=== PATIENT | male | born 1945 | race Hispanic/Latino ===

== ENCOUNTER 2017-12-25 07:30 | Inpatient (IN) | payer MEDICARE, BC ==
[2017-12-25 07:37] VITALS: BMI 27.3
[2017-12-25] MEDS ORDERED: Sodium Chloride 0.9% 1,000 ML IV STA (07:46)
[2017-12-25] MEDS ORDERED: Morphine 4 mg/ml ISec IVP STA (07:46)
--- NOTE | 2017-12-25 07:51 | ED PDOC ---
Arrival/HPI - General Chief Complaint: Abdominal Pain Time Seen by Provider: 12/25/17 07:36 Historian: Patient - History of Present Illness Narrative History of Present Illness (Text): 12/25/17 07:48 pt p/w + left groin/abd pain x 2 days, waxing and waning, at most pain worsens when he is ambulating; pain at most is 8/10; pt states + dysuria, ? urinary frequency; pt states no fever/chills/sweats, no cp/sob/palpitations, no bowel changes, no n/v, no numbness/tingling; pt denied fall/trauma/sick contact, no travel; pt is here for further eval; pt's without other complaints pt felt currently pain is similiar to prior hx of kidney stone pain, pain is unlike prior hx of lumbar/thoracic fracture/pain PCP: Dr Rodriguez Urology: Rajeev/Brittanie Time/Duration: < week (2d) Symptom Onset: Sudden Symptom Course: Intermittent Quality: Tightness, Stabbing, Cramping Severity Level: 8, Severe Activities at Onset: Other (worse pain with movement) Context: Walking, Exertion, Home Past Medical History - Provider Review Nursing Documentation Reviewed: Yes - Travel History Have you recently traveled outside [place] w/in the past 3 mons?: No - Past History Past History: No Previous - Infectious Disease Hx of Infectious Diseases: None - Tetanus Immunization Tetanus Immunization: Unknown - Cardiac Hx Hypertension: Yes - Pulmonary Hx Respiratory Disorders: No Hx Asthma: No Hx Bronchitis: No Hx Chronic Obstructive Pulmonary Disease (COPD): No Hx Emphysema: No Hx Pneumonia: No Hx Respiratory Aspiration: No Hx Respiratory Tract Infection: No Hx Sleep Apnea: No Hx Tuberculosis: No - Neurological Hx Neurological Disorder: No Hx Alzheimer's Disease: No HX Cerebrovascular Accident: No Hx Dementia: No Hx Dizziness: No Hx Meningitis: No Hx Migraine: No Hx Parkinson's Disease: No Hx Seizures: No Hx Transient Ischemic Attacks (TIA): No - Renal Hx Kidney Stones: Yes - Endocrine/Metabolic Hx Diabetes Mellitus Type 1: Yes - Hematological/Oncological Hx Blood Disorders: No Hx AIDS: No Hx Anemia: No Hx Cancer: No Hx Chemotherapy: No Hx Cirrhosis: No Hx Hepatitis A: No Hx Hepatitis C: No Hx Metastasis: No Hx Shingles: No Hx Unexplained Bleeding: No - Musculoskeletal/Rheumatological Hx Falls: Yes - Gastrointestinal Hx Gastrointestinal Disorders: Yes (INCONTINENT,ILEOSTOMY,CONSTIPATION, ULCERATIVE COLITIS,APPENDECTOMY,) - Genitourinary/Gynecological Hx Genitourinary Disorders: No (KIDNEY STONES) Hx Reproductive Disorders: No - Psychiatric Hx Substance Use: No - Surgical History Hx Cardiac Catheterization: No Hx Coronary Stent: No Other/Comment: ileostomy - Anesthesia Hx Anesthesia: Yes Hx Anesthesia Reactions: No Hx Malignant Hyperthermia: No - Suicidal Assessment Feels Threatened In Home Enviroment: No Family/Social History - Physician Review Nursing Documentation Reviewed: Yes Family/Social History: No Known Family HX Smoking Status: Never Smoked Hx Alcohol Use: Yes Hx Substance Use: No Hx Substance Use Treatment: No Allergies/Home Meds Allergies/Adverse Reactions: Allergies oxycodone Allergy (Verified 12/25/17 07:39) hallucination Penicillins Allergy (Verified 12/25/17 07:38) hallucination aspirin Allergy (Uncoded 12/25/17 07:38) hallucination Home Medications: Home Meds Medication Instructions Recorded Confirmed Insulin Detemir [Levemir] 30 unit SC HS 11/09/14 12/25/17 Insulin Lispro-LOW [humALOG LOW] 1 unit SC ACBHS 11/09/14 12/25/17 Pantoprazole Sodium [Protonix] 20 mg PO DAILY 11/09/14 12/25/17 Polyethylene Glycol 3350 [Miralax] 17 g PO DAILY PRN 11/09/14 12/25/17 Pregabalin [Lyrica] 100 mg PO BID PRN 11/09/14 12/25/17 Tamsulosin [Flomax] 0.4 mg PO DAILY 11/09/14 12/25/17 Review of Systems - Review of Systems Constitutional: Normal Eyes: Normal ENT: Normal Respiratory: Normal Cardiovascular: Normal Gastrointestinal: Abdominal Pain. absent: Nausea, Vomiting Genitourinary Male: Dysuria, Frequency. absent: Hematuria Musculoskeletal: Normal. absent: Back Pain, Neck Pain Skin: Normal Neurological: Normal Endocrine: Normal Hemo/Lymphatic: Normal Psychiatric: Normal Physical Exam Vital Signs Reviewed: Yes Vital Signs Temp Pulse Resp BP Pulse Ox 12/25/17 11:35 62 18 146/72 97 12/25/17 07:30 98 F 62 18 141/65 96 Temperature: Afebrile Blood Pressure: Normal Pulse: Regular Respiratory Rate: Normal Appearance: Positive for: Well-Appearing, Uncomfortable, Other (NAD, resting in bed, alert/awake, GCS = 15, oriented x 3; cooperative, follows command with ease ) Pain Distress: None Mental Status: Positive for: Alert and Oriented X 3 - Systems Exam Head: Present: Atraumatic, Normocephalic Pupils: Present: PERRL, Other (no nystagmus, no photophobia, sclera anicteric, visual field intact b/l) Extroacular Muscles: Present: EOMI Conjunctiva: Present: Normal Ears: Present: Normal Mouth: Present: Moist Mucous Membranes, Other (fair dentitions, no drooling/ stridor, no exudate/lesions, uvula/tongue are midline) Pharnyx: Present: Normal Nose (External): Present: Atraumatic Nose (Internal): Present: Normal Inspection Neck: Present: Normal Range of Motion, Trachea Midline. No: MIDLINE TENDERNESS Respiratory/Chest: Present: Clear to Auscultation, Good Air Exchange, Other ( CTA b/l, no w/r/r, no tachypenia) Cardiovascular: Present: Regular Rate and Rhythm, Normal S1, S2. No: Murmurs Abdomen: Present: Normal Bowel Sounds, Other (well nourished male, + right colectomy site/bag - + normal stool content/non-bloody; no focal tenderness, no masses/rebound/guarding/rigidity; no peck's sign, no mcburney's point tenderness) Back: Present: Normal Inspection, Other (no midline tenderness, no crepitus, no ecchymosis, no step off). No: CVA Tenderness, Midline Tenderness Upper Extremity: Present: Normal Inspection, Normal ROM, NORMAL PULSES, Neurovascularly Intact, Capillary Refill < 2s Lower Extremity: Present: Normal Inspection, NORMAL PULSES, Normal ROM, Capillary Refill < 2 s, Other (NO SLR; strength 5/5 grossly intact in all limbs , neurovasc intact b/l, + ambulatory) Neurological: Present: GCS=15, CN II-XII Intact, Speech Normal Skin: Present: Warm, Normal Color, Other (cap refill < 1sec, no ulcerations, no petechiae, no rashes) Psychiatric: Present: Alert, Oriented x 3 Medical Decision Making ED Course and Treatment: 12/25/17 07:51 Impression: left groin/abd pain i have consider all the differential diagnosis regarding pt's chief medical complaints/clinical findings, including but are not limited to: left groin/abd pain A/P: left groin/abd pain - labs - iv - ct - ua - observe - supportive care 12/25/17 10:55 pt is doing well currently pt denied pain pt is unable to urinate however 12/25/17 11:[address] kiser/urology, made aware, states if pt's symptoms are improved, pt can be treated as outpt; if pt's with persistent pain, then admit patient; no emergent procedure is recommend as per Dr Kiser; Dr kiser would like a KUB I spoke to Dr Beltran, devops consultant for Dr Rodriguez, is made aware, if pt's is to be admitted, Dr Beltran will admit, otherwise pt can be dispositioned accordingly pt currently remained pain free but is resting pt is awaiting urination 12/25/17 12:55 pt is made aware of his medical results pt continues to have intermittent pain, pt is requesting admission i spoke with Dr Beltran earlier, pt will be admitted pt agrees with admission Re-evaluation Time: 10:55 Reassessment Condition: Improved - Lab Interpretations Lab Results: 12/25/17 08:00 12/25/17 08:00 Lab Results 12/25/17 11:45: Urine Color Yellow, Urine Appearance Clear, Urine pH 5.5, Ur Specific [place] >= 1.030, Urine Protein Trace H, Urine Glucose (UA) 250 H, Urine Ketones Negative, Urine Blood Large H, Urine Nitrate Negative, Urine Bilirubin Negative, Urine Urobilinogen 0.2, Ur Leukocyte Esterase Negative, Urine RBC 20 - 25, Urine WBC 1 - 3, Ur Epithelial Cells None, Uric Acid Crystals Trace, Other Crystals Cystine, Amorphous Sediment Few, Urine Bacteria Mod, Urine Other Fiber 12/25/17 11:31: POC Glucose (mg/dL) 99 12/25/17 08:00: Sodium 142, Potassium 3.7, Chloride 107, Carbon Dioxide 26, Anion Gap 13, BUN 23 H, Creatinine 1.2, Est GFR ( Amer) > 60, Est GFR ( Non-Af Amer) 59, Random Glucose 105, Calcium 9.4, Total Bilirubin 1.6 H, AST 22 , ALT 22, Alkaline Phosphatase 53, Total Protein 7.0, Albumin 3.6, Globulin 3.4 , Albumin/Globulin Ratio 1.0 L, Lipase 108 12/25/17 08:00: WBC 6.5, RBC 4.60, Hgb 14.7, Hct 41.6 L, MCV 90.4, MCH 32.0, MCHC 35.3, RDW 12.6, Plt Count 154, MPV 10.1, Gran % 56.0, Lymph % (Auto) 34.2, [place] % (Auto) 8.0 H, Eos % (Auto) 1.5, Baso % (Auto) 0.3, Gran # 3.66, Lymph # ( Auto) 2.2, [place] # (Auto) 0.5, Eos # (Auto) 0.1, Baso # (Auto) 0.02 I have reviewed the lab results: Yes Interpretation: Abnormal lab values (slightly elevated Tbili; abnl UA) - RAD Interpretation Narrative RAD Interpretations (Text): 12/25/17 10:20 CT abdomen and pelvis: Creator : Jefry Cedeno MD FINDINGS: LOWER THORAX: Unremarkable. LIVER: Unremarkable. No gross lesion or ductal dilatation. GALLBLADDER AND BILE DUCTS: Cholecystectomy. PANCREAS: Unremarkable. No gross lesion or ductal dilatation. SPLEEN: Unremarkable. ADRENALS: Unremarkable. No mass. KIDNEYS AND URETERS: 12 millimeter calculus in the left renal pelvis with pelvic dilatation and peripelvic fat infiltration. No caliectasis. VASCULATURE: Unremarkable. No aortic aneurysm. BOWEL: Status post colectomy with right lower quadrant ileostomy. APPENDIX: Unremarkable. Normal appendix. PERITONEUM: Unremarkable. No free fluid. No free air. LYMPH NODES: Unremarkable. No enlarged lymph nodes. BLADDER: Unremarkable. REPRODUCTIVE: Relative of increased size of symmetric bilobed soft tissue density superior to the prostate gland could represent enlarged seminal vesicles. Recommend correlation with old films. BONES: No acute fracture. OTHER FINDINGS: None. IMPRESSION: 12 millimeter calculus in the left renal pelvis with pelvic dilatation and peripelvic fat infiltration. No caliectasis. Relative increased size of symmetric bilobed soft tissue density superior to the prostate gland could represent enlarged seminal vesicles. Recommend correlation with old films. 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 - Medication Orders Current Medication Orders: Insulin Detemir (Levemir) 30 unit SC HS [facility] Insulin Human Regular (Humulin R Med) 0 units SC ACHS [facility]OLA PRN Reason: Protocol Last Admin: 12/25/17 11:34 Dose: Not Given Non-Admin Reason: BP Parameters Not Met [facility] Blood Glucose Document 12/25/17 11:34 SRE (Rec: 12/25/17 11:34 SRE [id number]) Blood Glucose Finger Stick Blood Glucose (70-120) 99 Pantoprazole Sodium (Protonix Ec Tab) 20 mg PO DAILY [facility]OLA Pregabalin (Lyrica) 100 mg PO BID PRN PRN Reason: Muscle pain Tamsulosin HCl (Flomax) 0.4 mg PO DAILY [facility] Last Admin: 12/25/17 11:32 Dose: 0.4 mg Discontinued Medications Sodium Chloride (Sodium Chloride 0.9%) 1,000 mls @ 1,000 mls/hr IV .Q1H STA Stop: 12/25/17 08:45 Last Admin: 12/25/17 08:07 Dose: 1,000 mls/hr eMAR Start Stop Document 12/25/17 08:07 SRE (Rec: 12/25/17 08:08 SRE [id number]) Intravenous Solution Start Date 12/25/17 Start Time 08:00 End Date 12/25/17 End time 09:00 Total Infusion Time 60 Ketorolac Tromethamine (Toradol) 15 mg IVP STAT STA Stop: 12/25/17 07:47 Last Admin: 12/25/17 08:08 Dose: 15 mg [facility] Pain Assessment Document 12/25/17 08:08 SRE (Rec: 12/25/17 08:09 SRE [id number]) Pain Reassessment Is this a pain reassessment? Yes Sleep Is patient sleeping during reassessment? No Presence of Pain Presence of Pain Yes Pain Scale Used Pain Scale Used Numeric Location Left, Right or Bilateral Left Pain Location Body Site Abdomen Description Description Intermittent IVP Administration Document 12/25/17 08:08 SRE (Rec: 12/25/17 08:09 SRE [id number]) Charges for Administration # of IVP Administrations 1 Re-Assess: [facility] Pain Assessment Document 12/25/17 09:08 SRE (Rec: 12/25/17 11:30 SRE [id number]) Pain Reassessment Is this a pain reassessment? Yes Sleep Is patient sleeping during reassessment? No Presence of Pain Presence of Pain Yes Pain Scale Used Pain Scale Used Numeric Morphine Sulfate (Morphine) 4 mg IVP STAT STA Stop: 12/25/17 07:47 Last Admin: 12/25/17 08:08 Dose: 4 mg [facility] Pain Assessment Document 12/25/17 08:08 SRE (Rec: 12/25/17 08:08 SRE [id number]) Pain Reassessment Is this a pain reassessment? Yes Sleep Is patient sleeping during reassessment? No Presence of Pain Presence of Pain Yes Pain Scale Used Pain Scale Used Numeric Location Left, Right or Bilateral Left Pain Location Body Site Abdomen Description Description Intermittent IVP Administration Document 12/25/17 08:08 SRE (Rec: 12/25/17 08:08 SRE [id number]) Charges for Administration # of IVP Administrations 1 Re-Assess: [facility] Pain Assessment Document 12/25/17 09:08 SRE (Rec: 12/25/17 11:29 SRE [id number]) Pain Reassessment Is this a pain reassessment? Yes Sleep Is patient sleeping during reassessment? No Presence of Pain Presence of Pain Yes Location Left, Right or Bilateral Left Pain Location Body Site Abdomen Description Description Intermittent Disposition/Present on Arrival - Present on Arrival Any Indicators Present on Arrival: No History of DVT/PE: No History of Uncontrolled Diabetes: Yes Urinary Catheter: No History of Decub. Ulcer: No History Surgical Site Infection Following: None - Disposition Have Diagnosis and Disposition been Completed?: Yes Diagnosis: Acute flank pain, Renal colic on left side Disposition: HOSPITALIZED Disposition Time: 12:57 Patient Plan: Admission, Observation Condition: STABLE Referrals: Brenna Rodriguez MD [Primary Care Provider] - Follow up with primary Forms: [employer]iLo (Georgian)
[2017-12-25 08:13] LABS: BASO # 0.02 K/mm3 (0.0-2.0); BASO % 0.3 % (0.0-3.0); EOS # 0.1 (0.0-0.7); EOS % 1.5 % (1.5-5.0); GRAN # 3.66 (1.4-6.5); HEMOGLOBIN 14.7 g/dL (14.0-18.0); LYMPH # 2.2 (1.2-3.4); LYMPH % 34.2 % (22.0-35.0); MEAN CELL VOLUME 90.4 fl (80.0-105.0); MEAN CORPUSCULAR HGB CONC 35.3 g/dl (31.0-37.0); MEAN PLATELET VOLUME 10.1 fl (7.0-11.0); MONO # 0.5 (0.1-0.6); RBC 4.6 10^6/uL (3.5-6.1); RED CELL DISTRIBUTION WIDTH 12.6 % (11.5-14.5); WHITE BLOOD COUNT 6.5 10^3/ul (4.5-11.0)
[2017-12-25 08:23] LABS: ALBUMIN 3.6 g/dL (3.0-4.8); ALT/SGPT 22 U/L (7-56); AST/SGOT 22 U/L (17-59); BLOOD UREA NITROGEN 23 mg/dL (7-21); CALCIUM 9.4 mg/dL (8.4-10.5); GFR AFRICAN-AMERICAN > 60; GFR NON-AFRICAN AMERICAN 59; LIPASE 108 U/L (23-300)
--- NOTE | 2017-12-25 10:21 | CT ---
PROCEDURE: CT Abdomen and Pelvis without intravenous contrast HISTORY: left groin/abd pain x 2d, hx of stones COMPARISON: None. TECHNIQUE: Technique. Contrast Dose: Radiation dose: Total exam DLP = Total exam DLP = mGy-cm. This CT exam was performed using one or more of the following dose reduction techniques: Automated exposure control, adjustment of the mA and/or kV according to patient size, and/or use of iterative reconstruction technique. FINDINGS: LOWER THORAX: Unremarkable. LIVER: Unremarkable. No gross lesion or ductal dilatation. GALLBLADDER AND BILE DUCTS: Cholecystectomy. PANCREAS: Unremarkable. No gross lesion or ductal dilatation. SPLEEN: Unremarkable. ADRENALS: Unremarkable. No mass. KIDNEYS AND URETERS: 12 millimeter calculus in the left renal pelvis with pelvic dilatation and peripelvic fat infiltration. No caliectasis. VASCULATURE: Unremarkable. No aortic aneurysm. BOWEL: Status post colectomy with right lower quadrant ileostomy. APPENDIX: Unremarkable. Normal appendix. PERITONEUM: Unremarkable. No free fluid. No free air. LYMPH NODES: Unremarkable. No enlarged lymph nodes. BLADDER: Unremarkable. REPRODUCTIVE: Relative of increased size of symmetric bilobed soft tissue density superior to the prostate gland could represent enlarged seminal vesicles. Recommend correlation with old films. BONES: No acute fracture. OTHER FINDINGS: None. IMPRESSION: 12 millimeter calculus in the left renal pelvis with pelvic dilatation and peripelvic fat infiltration. No caliectasis. Relative increased size of symmetric bilobed soft tissue density superior to the prostate gland could represent enlarged seminal vesicles. Recommend correlation with old films.
[2017-12-25] MEDS: Insulin Reg-MEDIUM-Coverage SC SCH ×3 (11:34→22:11)
[2017-12-25 12:10] LABS: PH,URINE 5.5 (4.7-8.0); URINE APPEARANCE CLEAR (CLEAR); URINE BILIRUBIN NEGATIVE (NEGATIVE); URINE BLOOD LARGE (NEGATIVE); URINE COLOR YELLOW (YELLOW); URINE GLUCOSE (UA) 250 mg/dL (NEGATIVE); URINE LEUKOCYTE ESTERASE NEGATIVE Leu/uL (NEGATIVE); URINE PROTEIN TRACE mg/dL (<30 mg/dL); URINE UROBILINOGEN 0.2 E.U./dL (<1 E.U./dL)
[2017-12-25 12:19] LABS: URINE RBC 20 - 25 /hpf (0-2)
[2017-12-25 12:20] LABS: URINE AMORPHOUS SEDIMENT FEW; URINE BACTERIA MOD (NEG); URINE OTHER CRYSTALS CYSTINE /hpf; URINE URIC ACID CRYSTALS TRACE /hpf
--- NOTE | 2017-12-25 13:52 | RAD ---
HISTORY: left flank pain COMPARISON: CT of the abdomen 12/25/2017 FINDINGS: BOWEL: Normal. No obstruction. No free air. BONES: Normal. OTHER FINDINGS: None. IMPRESSION: The stone seen on CT in the left renal pelvis is not visible on plain film
[2017-12-25] MEDS ORDERED: Oxycodone/Acetaminophen 5/325 mg Tab PO PRN (20:56)
[2017-12-25] MEDS ORDERED: Ciprofloxacin 400mg/200ml D5W 400 MG/200 ML BAG IVPB SCH (22:00)
[2017-12-25] MEDS ORDERED: Insulin Detemir 100 units/ml Vial (Levemir) SC SCH (22:00)
[2017-12-25] MEDS ORDERED: Influenza Vaccine 60 mcg/0.5 mL SYR (4YR UP) IM ONE (22:23)
[2017-12-25] MEDS ORDERED: Pneumococcal 23-Valent Vaccine IM ONE (22:23)
[2017-12-25] MEDS: Insulin Detemir 100 units/ml Vial (Levemir) SC SCH (22:26)
[2017-12-26] MEDS: Insulin Reg-MEDIUM-Coverage SC SCH ×4 (08:30→21:57)
[2017-12-26] MEDS ORDERED: Iohexol 240 (50 ml) ONE (09:38)
[2017-12-26] MEDS ORDERED: Lactated Ringer's 1,000 ML IV SCH (10:00)
[2017-12-26] MEDS ORDERED: Propofol 10 mg/ml Inj (20 ML) ONE (10:04)
[2017-12-26] MEDS ORDERED: Ciprofloxacin 400mg/200ml D5W 400 MG/200 ML BAG IVPB ONE (10:08)
[2017-12-26] MEDS ORDERED: Ciprofloxacin 400mg/200ml D5W IVPB ONE (10:10)
[2017-12-26] MEDS: Morphine 4 mg/ml ISec IVP PRN ×4 (10:48→21:58)
[2017-12-26] MEDS ORDERED: Morphine 4 mg/ml ISec ONE ×2 (10:49→11:04)
[2017-12-26] MEDS: Pantoprazole 20 mg EC Tab PO SCH (11:00)
[2017-12-26] MEDS ORDERED: HYDROmorphone 0.5 mg/0.5 ml ISec ONE (11:44)
[2017-12-26] MEDS ORDERED: HYDROmorphone 0.5 mg/0.5 ml ISec IVP STA (11:47)
[2017-12-26] MEDS ORDERED: Morphine 4 mg/ml ISec IVP PRN (16:05)
[2017-12-26] MEDS: Insulin Detemir 100 units/ml Vial (Levemir) SC SCH (21:56)
--- NOTE | 2017-12-27 01:42 | HP ---
HISTORY OF PRESENT ILLNESS: This is a 72-year-old male who is coming in to the hospital with complaints of left-sided groin pain and abdominal pain. He says he has been having this pain for the past two days, has been coming and going. He states the pain is worse when he walks. He has described the pain as 7/10. He does have a history of kidney stones. The patient says he has no fevers or chills. No dysuria. No nausea. No vomiting. No weakness in the arms or the legs. No back pain. The patient had seen Urology in the past. REVIEW OF SYMPTOMS: All other review of symptoms are within normal limits except what was mentioned. ALLERGIES: ALLERGIES TO OXYCODONE AND PENICILLIN. HOME MEDICATIONS: Levemir, Humalog, Protonix, MiraLax, Lyrica, Flomax. PAST MEDICAL HISTORY: 1. Nephrolithiasis. 2. Diabetes type 2. 3. Constipation. 4. BPH. 5. Ulcerative colitis. 6. T8 compression fracture and also L1, L2, L3 transverse process fracture. PAST SURGICAL HISTORY: 1. Appendectomy. 2. Cholecystectomy. 3. Ileostomy. SOCIAL HISTORY: The patient does drink socially. He denies smoking. FAMILY HISTORY: No history of kidney stones. PHYSICAL EXAMINATION: VITAL SIGNS: Temperature is 97.8, pulse is 60, blood pressure is 167/80, respirations 22, O2 saturation 98%. Height is 5 feet 8 inches. Weight is 180 pounds, BMI is 27.4. GENERAL: The patient lying in bed, uncomfortable, and in no acute distress. HEENT: Atraumatic and normocephalic. Anicteric sclerae. Moist mucosa. [place] conjunctivae. No oral lesions. NECK: No JVD, anterior and posterior adenopathy, thyromegaly, or bruits. CARDIOVASCULAR: S1 and S2 regular. No murmur, rubs, or gallop. LUNGS: Clear to auscultation bilaterally. No wheezes, rales, or rhonchi. ABDOMEN: Bowel sounds are positive. Soft, nontender and nondistended. No hepatosplenomegaly. No rebound and no guarding EXTREMITIES: No cyanosis, clubbing, or edema. NEUROLOGIC: No facial asymmetry. Tongue is midline. No uvula deviation. Power is 5/5 upper extremity and lower extremity. Sensation intact in upper extremity and lower extremity. PSYCHIATRIC: He is awake, alert and oriented x3. No anxiety or depression. He has normal affect. GENITOURINARY: No CVA tenderness. VASCULAR: 2+ pulses in the carotid pulses and pedal pulses. SKIN: No erythema or nodules SPINE: Shows normal curvature. LABORATORY DATA: White count is 6.5, hemoglobin is 14.7. Chemistry shows a creatinine of 1.2. Urine shows blood that is large. Nitrites are negative. Bilirubin is negative. CT of the abdomen and pelvis done, he has a mm calculus in the left renal pelvis with pelvic dilatation. Abdominal x-ray done, stone seen on the CT. The left renal pelvis is not visible on plain film. ASSESSMENT: 1. 1.2-mm calculus in the left renal pelvis. 2. Diabetes type 2. 3. Ileostomy. PLAN: The patient needs to be admitted to the hospital. He has abdominal pain and a CAT scan that shows a 1.2-mm kidney stone. The patient is going to need a cystoscopy and a stent placement. Dr. Gu had been consulted; I spoke to him yesterday. The patient has been placed on Flomax. He is going to continue with Levemir for diabetes type 2. He is going to be on Protonix. He was given IV fluids. He is on tramadol for pain. The patient is on a heart-healthy diet. The patient going to be discharged home. Follow up with Dr. Gu. He will most likely need to go to [facility] for lithotripsy. Herrera Healy MD
[2017-12-27] MEDS: Morphine 4 mg/ml ISec IVP PRN (01:45)
[2017-12-27] MEDS: Insulin Reg-MEDIUM-Coverage SC SCH ×4 (08:12→22:31)
[2017-12-27] MEDS: Pantoprazole 20 mg EC Tab PO SCH (08:59)
--- NOTE | 2017-12-27 16:27 | PN ---
DATE: 12/27/2017 SUBJECTIVE: The patient has no complaints of any chest pain, no shortness of breath or headache. PHYSICAL EXAMINATION: VITAL SIGNS: Temperature is 99, pulse of 63, blood pressure is 169/95, respirations 18. GENERAL: The patient is lying in bed, flat, comfortable. HEENT: No oral lesion. Anicteric sclerae. Moist mucosa. NECK: No JVD, adenopathy, or thyromegaly. CARDIOVASCULAR: S1 and S2, regular. No murmurs, rubs, or gallops. LUNGS: Clear to auscultation bilaterally. No wheeze, rales, or rhonchi. ABDOMEN: Bowel sounds are positive, soft, nontender and nondistended. EXTREMITIES: No cyanosis, clubbing or edema. LABORATORY DATA: White count of 6.5. ASSESSMENT: 1. 1.2-mm calculus in the left renal pelvis, status post stent. 2. Diabetes type 2. 3. Ileostomy. 4. Vertigo. PLAN: The patient is currently admitted to the hospital. He had a stent placed by Dr. Gu yesterday. The patient is on Flomax for his stone. He is on Levemir for his diabetes type 2. He is on morphine for pain. He is on Ultram for pain as well. The patient states he has vertigo and he is not able to ambulate. This maybe related to his procedure. I will get physical therapy to evaluate the patient. The patient will also need further evaluation by Neurology. I will get Dr. Washburn to evaluate the patient. Herrera Healy MD
[2017-12-27] MEDS ORDERED: Gadodiamide 287 MG/ML VIAL (15ML) IV ONE (17:43)
--- NOTE | 2017-12-27 20:24 | MRI ---
EXAM: MR Head Without and With Intravenous Contrast EXAM DATE/TIME: 12/27/2017 3:26 PM CLINICAL HISTORY: The patient age is 72 years old and is male; Signs and symptoms; Dizziness; Additional info: Vertigo Facility exam id and description: Mri br cs brain w wo contrast. Relevant stent documentation attached. Gfr 59 15cc. Dizziness. Pt kyphotic, done with head coil elevated at 45 degree angle. Additional sequences through pituitary added for clarity. TECHNIQUE: Magnetic resonance images of the head/brain without and with intravenous contrast in multiple planes. CONTRAST: 15 mL of optimark administered intravenously. COMPARISON: No relevant prior studies available. FINDINGS: Brain: There is no restricted diffusion within the brain to suggest acute ischemic change. There are scattered tiny foci of high FLAIR signal intensity within the cerebral white matter. There is no mass effect or restricted diffusion associated with these foci. In a patient this age, this likely represents chronic small vessel ischemic disease. There is mild prominence of the ventricles, with [id number] prominence of the sulci and sulci, compatible with atrophy. No magnetic susceptibility intracerebral hemosiderin is visualized. No cerebral edema. No abnormally enhancing intracranial mass is visualized. Ventricles: There is a cavum septum pellucidum et vergae variant. See above. Bones/joints: No acute abnormality. Soft tissues: Small T1 hyperintense foci are visualized within the left frontal scalp, consistent with lipomas. Sinuses: There is mucosal thickening of the right sphenoid sinus, with mucous retention cysts or polyps. Minimal polypoid mucosal thickening is identified of the left maxillary sinus. Mastoid air cells: No mastoid effusion. Orbits: Bilateral orbital lens implants are identified. Sella: There is deviation of the pituitary stalk to the left. No well-defined pituitary lesion is identified on postcontrast sequences. Other: T1 hypointense small bilateral intraparotid cysts, nodules or lymph nodes are visualized. This is largest on the left side measuring 0.9 x 0.5 cm. IMPRESSION: 1. There is no restricted diffusion within the brain to suggest acute ischemic change. 2. There are scattered tiny foci of high FLAIR signal intensity within the cerebral white matter. In a patient this age, this likely represents chronic small vessel ischemic disease. 3. Mild to moderate atrophy. 4. Paranasal sinus disease is noted above. 5. T1 hypointense small bilateral intraparotid cysts, nodules, or lymph nodes are visualized. 6. Additional findings described above.
[2017-12-27] MEDS: Insulin Detemir 100 units/ml Vial (Levemir) SC SCH (22:33)
--- NOTE | 2017-12-28 02:54 | CON ---
DATE: HISTORY OF PRESENT ILLNESS: This is a 72-year-old male with a past medical history of nephrolithiasis, diabetes, constipation, benign prostatic hypertrophy, ulcerative colitis, and T8 compression fracture, and also L1, L2, L3 transverse process fracture, came to hospital with a complaint of left groin pain and abdominal pain and has been complaining of this pain for the past 2 to 3 weeks and which becomes worse when walks, and pain is 7/10 in intensity and also has a history of kidney stone, and dizziness. Patient has been complaining of dizziness for 3 to 4 days with the room spinning sensation. No nausea, no vomiting. REVIEW OF SYSTEMS: Ten-point review of systems was negative except vertigo. ALLERGIES: TO OXYCODONE AND PENICILLIN. PAST MEDICAL HISTORY: Diabetes, ulcerative colitis and benign prostate hypertrophy, T8 compression fracture, L1, L2, L3 transverse process fracture. PAST SURGICAL HISTORY: Appendectomy, cholecystectomy, and ileostomy. SOCIAL HISTORY: Patient drinks socially. Does not smoke. PHYSICAL EXAMINATION: VITAL SIGNS: Blood pressure 167/80. HEENT: Normocephalic and atraumatic. NECK: Supple. NEUROLOGIC: Alert, awake, and oriented x3. No aphasia. Cranial nerves II through XII are tested. Pupils reactive. EOM intact. Visual rios full. No facial asymmetry. Tongue midline. Motor examination: Moves all the extremities equally. Tone normal. Deep tendon reflexes 1+. Both plantars are downgoing. Sensory appears intact. Cerebellar, gait deferred. IMPRESSION: Vertigo, rule out vertebrobasilar ischemia, benign positional vertigo. Workup in progress. We will do the CAT scan of the head or MRI of the head with and without gadolinium and we will give meclizine. We will follow up. Agus Washburn MD
--- NOTE | 2017-12-28 04:30 | CP.PCM.PN ---
Subjective - Date & Time of Evaluation Date of Evaluation: 12/27/17 Time of Evaluation: 19:00 - Subjective Subjective: pt is c/o cp when he takes deep breath . pt has hx of dm htn ,ulcerative colitis. Objective - Vital Signs/Intake and Output Vital Signs (last 24 hours): Temp Pulse Resp BP Pulse Ox 99.3 F 68 18 125/79 97 12/27/17 22:00 12/27/17 22:00 12/27/17 22:00 12/27/17 22:00 12/27/17 22:00 Intake and Output: 12/27/17 12/28/17 18:59 06:59 Intake Total 660 Output Total 500 Balance 160 - Medications Medications: Current Medications Insulin Detemir (Levemir) 16 unit SC [facility] Last Admin: 12/27/17 22:33 Dose: 16 unit Insulin Human Regular (Humulin R Med) 0 units SC [facility] PRN Reason: Protocol Last Admin: 12/27/17 22:31 Dose: Not Given Morphine Sulfate (Morphine) 4 mg IVP Q4H PRN PRN Reason: Pain, severe (8-10) Last Admin: 12/27/17 01:45 Dose: 4 mg Pantoprazole Sodium (Protonix Ec Tab) 20 mg PO DAILY [facility] Last Admin: 12/27/17 08:59 Dose: 20 mg Pregabalin (Lyrica) 100 mg PO BID PRN PRN Reason: Muscle pain Last Admin: 12/26/17 12:42 Dose: 100 mg Tamsulosin HCl (Flomax) 0.4 mg PO DAILY [facility] Last Admin: 12/27/17 09:57 Dose: 0.4 mg Tramadol HCl (Ultram) 50 mg PO Q4 PRN PRN Reason: Pain, moderate (4-7) Last Admin: 12/27/17 09:03 Dose: 50 mg - Constitutional Appears: No Acute Distress - Head Exam Head Exam: NORMOCEPHALIC - Eye Exam Eye Exam: Normal appearance Pupil Exam: PERRL - ENT Exam ENT Exam: Mucous Membranes Moist - Neck Exam Neck Exam: Normal Inspection - Respiratory Exam Respiratory Exam: NORMAL BREATHING PATTERN - Cardiovascular Exam Cardiovascular Exam: RRR, +S1, +S2 - GI/Abdominal Exam GI & Abdominal Exam: Soft, Normal Bowel Sounds - Rectal Exam Rectal Exam: Deferred - Extremities Exam Extremities Exam: Full ROM - Neurological Exam Neurological Exam: Alert, Awake, Oriented x3 - Psychiatric Exam Psychiatric exam: Normal Affect - Skin Skin Exam: Dry, Warm Assessment and Plan - Assessment and Plan (Free Text) Assessment: chest pain hx of dm . hx of ulcerative colitis . renal calculi. Plan: pt was given s/l nitro and improved . ekg no acute changes . troponine negative.
[2017-12-28] MEDS: Insulin Reg-MEDIUM-Coverage SC SCH ×3 (08:22→17:09)
--- NOTE | 2017-12-28 08:38 | OP ---
PROCEDURE DATE: 12/26/2017 PREOPERATIVE DIAGNOSIS: Renal colic and left renal pelvic calculus. POSTOPERATIVE DIAGNOSIS: Renal colic and left renal pelvic calculus. PROCEDURE: Cystoscopy, left retrograde pyelogram, insertion of left ureteral stent. ATTENDING SURGEON: Romain Gu MD. ANESTHESIA: MAC sedation. SPECIMENS: None. DRAINS: A 6 x 26 left ureteral stent. COMPLICATIONS: None. OPERATIVE FINDINGS: After informed consent was obtained, the patient was taken to operating room and placed on the operating table. Anesthesia was administered. The patient was then placed in the dorsal lithotomy position and prepped and draped in the usual sterile fashion. A 22-Nepali cystoscope was placed in the patient's urethra and advanced proximally under direct vision until the bladder was entered. A full survey inspection of bladder was then performed, which revealed large amount of mittla colored sediment and tiny calculi. There were no sizable bladder stones noted. Both ureteral orifices were visualized and appeared within normal limits. The bladder had grade 1-2 trabeculation noted. Prostate was enlarged with trilobar hypertrophy. At this point, a [place] catheter was introduced through the cystoscope and guided into the left ureteral orifice. When inside the orifice, contrast was then instilled into the system during real-time fluoroscopy. There was noted to be a large filling defect in the left renal pelvis. There did not appear to be hydronephrosis or caliectasis. At this point, a sensor wire was obtained. It was passed through the [place] catheter and advanced up the ureter under fluoroscopic guidance. The wire was able to be passed beyond the calculus and coiled in the upper collecting system. The open-ended ureteral catheter was removed and a 6 x 26 ureteral stent was obtained. The stent was passed over the guidewire through the cystoscope and into the left ureter. The stent was advanced proximally under direct and fluoroscopic guidance. When the stent was in proper position, the guidewire was removed. A coil was seen in the upper collecting system on fluoroscopy. The coil was seen in the bladder on cystoscopy. At this point, procedure was completed, the bladder was drained. The cystoscope was removed. The patient tolerated procedure well and was returned to the supine position and taken to the recovery room awake in a stable condition. Romain Gu MD [facility] # [id number] [place]
--- NOTE | 2017-12-28 08:41 | PN ---
DATE: 12/26/2017 The patient is status post insertion of a left ureteral stent. He is now awake and alert and feeling well. He remains afebrile. I have discussed with the patient the plan regarding his large renal pelvic stone would be to start on urinary alkalinization. I will discuss this with Dr. Healy. My recommendation would be to start Urocit-K 15 mEq p.o. twice daily. I will see him in the office in approximately 1 to 2 weeks. If his urine can the alkalinized, the stone will most likely dissolve and we can repeat a CT scan and then, plan stent removal. Alternatively, we can also plan a shockwave lithotripsy; if stone is persistent, to fragment it and increase the surface area. The patient understands and agrees to outpatient followup. If his pain is controlled, he can be discharged home later today. I would continue him on antibiotics for a few days empirically. Romain Gu MD
--- NOTE | 2017-12-28 08:47 | CON ---
DATE: 12/25/2017 CHIEF COMPLAINT: Left groin and abdominal pain. HISTORY OF PRESENT ILLNESS: This is a 72-year-old male who is seen in [facility]. The patient presented to the emergency room complaining of left groin and abdominal pain for few days. Pain was coming and going. Pain was worse when ambulating. Pain became severe and the patient presented to the emergency room. He has a history of kidney stones as well as chronic back pain with vertebral fractures in the past. The patient received pain medication in the emergency room and is currently feeling much better. He has a history of diabetes as well as ulcerative colitis, and had a colectomy. He has had a ileostomy present for many years. He reports multiple episodes of kidney stones in the past. He denies any fevers or chills. Denies any nausea or vomiting. PAST MEDICAL HISTORY: Significant for colitis status post colectomy with ileostomy many years ago, diabetes, positive hypertension, no coronary artery disease, no COPD, vertebral fracture. MEDICATIONS: Include Flomax, insulin, Levemir, Lyrica, Protonix, and received morphine. ALLERGIES: ALLERGIC TO OXYCODONE, PENICILLIN, ASPIRIN. FAMILY HISTORY: Noncontributory. SOCIAL HISTORY: No smoking or EtOH use. REVIEW OF SYSTEMS: Currently feeling better. Left flank pain as per the history of present illness. Also complaining of dysuria present for many years. Denies urinary frequency or difficulty voiding. Has good urinary stream. GI: Has ulcerative colitis with longstanding ileostomy. Other systems are negative. PHYSICAL EXAMINATION: GENERAL: The patient is awake, alert. He is in no acute distress. VITAL SIGNS: He is afebrile, temperature of 97.6, BP 140/81, respirations 18. NECK: Supple. There is no adenopathy. CHEST: Reveals normal inspiratory effort. CARDIAC: Shows positive S1, S2. There is no peripheral edema. ABDOMEN: The abdomen is soft, nontender, nondistended. There is no hepatosplenomegaly. There is an ileostomy in place which is viable and functioning. There is no CVA tenderness. GENITOURINARY: Phallus is normal. Scrotum is normal. Testes are bilaterally descended, nontender, no masses. Epididymides are normal. EXTREMITIES: Shows no cyanosis or edema. LABORATORY DATA: On laboratory exam, WBC count normal 6.5, creatinine 1.2. GFR 59. Urinalysis showed some cystine crystals and uric acid crystals, rbc's 20-25, wbc's 1-3, nitrites were negative. DIAGNOSTIC DATA: On radiologic exam, the patient had a CT scan of the abdomen and pelvis which showed an 1.2 cm calculus in the left renal pelvis. There is some thickening in the pelvis. There is no caliectasis. There is question of enlarged seminal vesicles. KUB was done and the stone was not visible. IMPRESSION AND PLAN: This is a 72-year-old male with history of an ileostomy with a 12-mm left renal pelvic stone. Stone does not appear obstructive. There is no caliectasis or hydronephrosis. The patient's pain has been controlled. The stone is not visible on KUB, and is likely uric acid. Plan at this point would be to start the patient on IV antibiotics prophylactically, as he does have a history of diabetes. I would keep the patient n.p.o. after midnight tonight and plan on a ureteral stent placement. Given his history of diabetes, I think the patient is at risk if the stone does become obstructed. Plan will be to place a stent and plan on an outpatient shockwave lithotripsy. Thank you for allowing me to participate in the care of this patient. I will follow him with you. I discussed this with the patient. We will plan on cystoscopy with stent placement. Romain Gu MD
--- NOTE | 2017-12-28 09:29 | RAD ---
HISTORY: cp COMPARISON: No prior. FINDINGS: LUNGS: No active pulmonary disease. PLEURA: No significant pleural effusion identified, no pneumothorax apparent. CARDIOVASCULAR: Normal. OSSEOUS STRUCTURES: No significant abnormalities. VISUALIZED UPPER ABDOMEN: Normal. OTHER FINDINGS: None. IMPRESSION: No active disease.
[2017-12-28] MEDS: Pantoprazole 20 mg EC Tab PO SCH (09:53)
--- NOTE | 2017-12-28 10:14 | RAD ---
PROCEDURE: Retrograde pyelogram HISTORY: R/O STONE COMPARISON: TECHNIQUE: Fluoroscopy was provided in the operating room. 46.9 seconds of fluoro time. Eleven images submitted FINDINGS: There is a large stone in the left renal pelvis. The study shows placement of a left ureteral stent IMPRESSION: As above
[2017-12-28] MEDS: Morphine 4 mg/ml ISec IVP PRN (12:36)
[2017-12-28] MEDS ORDERED: Morphine 15 mg Immediate Release Tab PO ONE (13:20)
[2017-12-28 16:09] VITALS: BP 150/89; PULSE 90; RESP 17; TEMP 98; O2SAT 94
--- NOTE | 2017-12-28 16:59 | PN ---
DATE: 12/28/2017 NEUROLOGY FOLLOWUP CHIEF COMPLAINT: Follow up for dizziness. SUBJECTIVE: The patient is no acute distress, had a 1.2 mm calculus in the left renal pelvis, status post stent by Dr. Gu. Patient is on Flomax for his stone. He is no longer having any spinning sensation of the room. His MRI of brain showed no acute intracranial abnormality, just chronic ischemic changes. REVIEW OF SYSTEMS: A 14-point review of systems negative except as per the HPI. ALLERGIES: ALLERGIC TO OXYCODONE AND PENICILLIN. HOME MEDICATIONS: Reviewed by nurse reconciliation sheet. FAMILY HISTORY: Noncontributory. PAST MEDICAL HISTORY: Nephrolithiasis, diabetes type 2, constipation, BPH, ulcerative colitis, T8 compression fracture and L1, L2, L3 transverse process fracture. PAST SURGICAL HISTORY: Appendectomy, cholecystectomy and ileostomy. SOCIAL HISTORY: Drinks socially. No illicit drug use or smoking. LABORATORY DATA: Blood sugar today is 195. PHYSICAL EXAMINATION: VITAL SIGNS: Temperature 98.5, pulse rate of 66, blood pressure 140/84, respiratory rate 18, oxygen saturations 95% by room air. GENERAL: Patient is sitting up in bed, in no acute distress. HEENT: Head is atraumatic, normocephalic. PERRLA. Extraocular muscles intact. NECK: Supple. No JVD, no adenopathy noted. LUNGS: Clear to auscultation. No adventitious sounds. HEART: S1, S2, normal rate and rhythm. No murmurs, rubs or gallops. ABDOMEN: Soft, nontender, nondistended. Bowel sounds present. EXTREMITIES: No clubbing, no cyanosis. Peripheral pulses 2+ felt bilaterally. NEUROLOGIC: Patient is alert and oriented to person, place, month and year. Speech is fluent without any errors. Cranial nerves II through XII intact. Motor: Moves all extremities equally. Toes downgoing bilaterally. Sensory: Decreased light touch and pinprick up to the calves bilaterally. Decreased vibration of the toes. DTRs are 2+ throughout and 1 at both knees and ankles. Coordination: [id number] intact. No dysmetria noted. Gait is deferred for now. ASSESSMENT AND PLAN: This is a 72-year-old man with history of type 2 diabetes mellitus, diabetic peripheral neuropathy, constipation, benign prostatic hypertrophy, ulcerative colitis, T8 compression fracture and L1, L2, L3 transverse process fracture, on Lyrica 100 p.o. b.i.d. for neuropathic pain, came in for left-sided groin pain and abdominal pain, found to have calculus in the left renal pelvis, status post stent by Dr. Gu and we will follow up with him for a lithotripsy with urologist as an outpatient. At this time, we were consulted for dizziness and transient spinning sensation of room with positional vertigo. RECOMMENDATIONS: At this time, recommend: 1. Keep blood sugars between 140 to 180 and have a diabetic diet. 2. Continue Lyrica for neuropathic relief of his diabetic peripheral neuropathy and his chronic T8 compression fracture. 3. Avoid sudden movements and decrease salt intake in diet. 4. If the vertigo reoccurs, may need outpatient vestibular therapy. He is clinically stable. Thank you for this followup. Leonidas Washburn MD
--- NOTE | 2017-12-29 03:02 | DS ---
HISTORY OF PRESENT ILLNESS: This is a 72-year-old male who has come into the hospital, he did fairly well after he had a stent placed in his left kidney in the ureter because of 1.2 mm calculus, the patient did not feel well and was dizzy after his procedure, so he stayed an extra day. He is able to ambulate. He was seen by Physical Therapy. [place] catheter was taken out. He is able to go back to work tomorrow. I did leave a note for him for his work. He is going to follow up with Dr. Gu. He has no complaints of any chest pain, no shortness of breath, no headaches. PHYSICAL EXAMINATION: VITAL SIGNS: Temperature is 98, pulse of 90, blood pressure 150/89, respirations 17, O2 saturation 94%. GENERAL: The patient is lying in bed, flat, comfortable. HEENT: No oral lesion. Anicteric sclerae. Moist mucosa. NECK: No JVD, adenopathy, or thyromegaly. CARDIOVASCULAR: S1 and S2, regular. No murmurs, rubs, or gallops. LUNGS: Clear to auscultation bilaterally. No wheeze, rales, or rhonchi. ABDOMEN: Bowel sounds are positive, soft, nontender and nondistended. EXTREMITIES: No cyanosis, clubbing or edema. ASSESSMENT: 1. A 1.2-mm calculus in the left renal pelvis, status post stent. 2. Diabetes type 2. 3. Ileostomy. 4. Vertigo, improved. PLAN: The patient is on Levemir for his diabetes type 2. He is on Ultram for pain. He is on Flomax. He is going to continue with his Lyrica. The patient is on a heart-healthy diet. He was advised to increase his p.o. fluid intake and decrease salt intake to prevent he has no complaints of any headaches, dizziness. CONDITION: Stable. ACTIVITIES: Increase as tolerated. Herrera Healy MD
== END 2017-12-28 18:46 | disposition home or self-care (01) | DRG 694 ==
LOC: ED 07:30 → ERH 12:53 → 5RSO 15:11 → OBSVTOIN 12-27 11:30
PROVIDERS: ADMIT Internal Medicine Nephrology; ATTEND Internal Medicine Nephrology
PROC: 0T778DZ Dilation of Left Ureter with Intraluminal Device, Via Natural or Artificial Opening Endoscopic (ICD-10-PCS; principal; 2017-12-26 09:30)
PROC: BT1F1ZZ Fluoroscopy of Left Kidney, Ureter and Bladder using Low Osmolar Contrast (ICD-10-PCS; 2017-12-26 09:30)
DX: N20.0 Calculus of kidney (principal); E11.42 Type 2 diabetes mellitus with diabetic polyneuropathy; Z93.2 Ileostomy status; R42 Dizziness and giddiness; G89.29 Other chronic pain; N40.0 Benign prostatic hyperplasia without lower urinary tract symptoms; K59.00 Constipation, unspecified; I10 Essential (primary) hypertension; Z87.442 Personal history of urinary calculi; Z90.49 Acquired absence of other specified parts of digestive tract

== ENCOUNTER 2018-06-08 14:51 | Inpatient (IN) | payer MEDICARE, BC ==
[2018-06-08 17:22] LABS: BASO # 0.01 K/mm3 (0.0-2.0); BASO % 0.1 % (0.0-3.0); EOS # 0.1 (0.0-0.7); EOS % 1.4 % (1.5-5.0); GRAN # 4.05 (1.4-6.5); GRAN % 55.4 % (50.0-68.0); HEMOGLOBIN 14.7 g/dL (14.0-18.0); LYMPH # 2.6 (1.2-3.4); LYMPH % 35.4 % (22.0-35.0); MEAN CELL VOLUME 88.7 fl (80.0-105.0); MEAN CORPUSCULAR HEMOGLOBIN 31.5 pg (25.0-35.0); MEAN CORPUSCULAR HGB CONC 35.5 g/dl (31.0-37.0); MEAN PLATELET VOLUME 9.9 fl (7.0-11.0); MONO # 0.6 (0.1-0.6); MONO % 7.7 % (1.0-6.0); RBC 4.67 10^6/uL (3.5-6.1); RED CELL DISTRIBUTION WIDTH 12.8 % (11.5-14.5); WHITE BLOOD COUNT 7.3 10^3/ul (4.5-11.0)
--- NOTE | 2018-06-08 17:22 | RAD ---
Date of service: 06/08/2018 HISTORY: weakness COMPARISON: Chest radiograph dated 12/28/2017 FINDINGS: LUNGS: No active pulmonary disease. PLEURA: No significant pleural effusion identified, no pneumothorax apparent. CARDIOVASCULAR: Atherosclerotic aortic calcifications. Cardiomediastinal silhouette stably enlarged OSSEOUS STRUCTURES: Unchanged. VISUALIZED UPPER ABDOMEN: Normal. OTHER FINDINGS: None. IMPRESSION: No active disease.
--- NOTE | 2018-06-08 17:41 | CT ---
Date of service: 06/08/2018 PROCEDURE: CT HEAD WITHOUT CONTRAST. HISTORY: dizziness COMPARISON: 11/02/2014 TECHNIQUE: Axial computed tomography images were obtained through the head/brain without intravenous contrast. Radiation dose: Total exam DLP = 1084.11 mGy-cm. This CT exam was performed using one or more of the following dose reduction techniques: Automated exposure control, adjustment of the mA and/or kV according to patient size, and/or use of iterative reconstruction technique. FINDINGS: HEMORRHAGE: No intracranial hemorrhage. BRAIN: No mass effect or edema. No atrophy or chronic microvascular ischemic changes. VENTRICLES: No hydrocephalus. Incidental cavum septum pellucidum. CALVARIUM: No fracture. Incidental 7 mm left frontal scalp lipoma. PARANASAL SINUSES: Chronic sphenoid sinusitis MASTOID AIR CELLS: Unremarkable as visualized. No inflammatory changes. OTHER FINDINGS: None. IMPRESSION: No intracranial mass, hemorrhage or evidence of acute infarct. Chronic sphenoid sinusitis. Small left frontal scalp lipoma incidentally noted.
[2018-06-08 17:42] LABS: ALB/GLOB RATIO 1.2 (1.1-1.8); ALBUMIN 3.9 g/dL (3.0-4.8); ALT/SGPT 23 U/L (7-56); AST/SGOT 21 U/L (17-59); BLOOD UREA NITROGEN 19 mg/dL (7-21); CALCIUM 9.4 mg/dL (8.4-10.5); GFR NON-AFRICAN AMERICAN > 60
[2018-06-08 17:54] LABS: TROPONIN I < 0.01 ng/mL
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
[2018-06-08 20:21] LABS: URINE BILIRUBIN NEGATIVE (NEGATIVE); URINE BLOOD NEGATIVE (NEGATIVE); URINE GLUCOSE (UA) >=1000 mg/dL (NEGATIVE); URINE LEUKOCYTE ESTERASE NEGATIVE Leu/uL (NEGATIVE); URINE PROTEIN NEGATIVE mg/dL (<30 mg/dL); URINE UROBILINOGEN 0.2 E.U./dL (<1 E.U./dL)
[2018-06-08 20:24] LABS: URINE APPEARANCE CLEAR (CLEAR); URINE COLOR YELLOW (YELLOW)
[2018-06-09] MEDS ORDERED: Sodium Chloride 0.9% 1,000 ML IV SCH (08:00)
[2018-06-09] MEDS: Insulin Detemir 100 units/ml Vial (Levemir) SC SCH ×2 (08:54→22:20)
[2018-06-09 08:55] LABS: HEMOGLOBIN 16.6 g/dL (14.0-18.0); MEAN CELL VOLUME 88.8 fl (80.0-105.0); MEAN CORPUSCULAR HEMOGLOBIN 31.4 pg (25.0-35.0); MEAN CORPUSCULAR HGB CONC 35.4 g/dl (31.0-37.0); MEAN PLATELET VOLUME 9.7 fl (7.0-11.0); RBC 5.28 10^6/uL (3.5-6.1); RED CELL DISTRIBUTION WIDTH 12.7 % (11.5-14.5); WHITE BLOOD COUNT 6.3 10^3/ul (4.5-11.0)
[2018-06-09 09:24] LABS: ALB/GLOB RATIO 1.1 (1.1-1.8); ALBUMIN 4.3 g/dL (3.0-4.8); ALT/SGPT 18 U/L (7-56); AST/SGOT 26 U/L (17-59); BLOOD UREA NITROGEN 16 mg/dL (7-21); CALCIUM 9.5 mg/dL (8.4-10.5); GFR NON-AFRICAN AMERICAN > 60
--- NOTE | 2018-06-09 10:37 | CARD ---
APPROVED REPORT Date of service: 06/08/2018 EKG Measurement Heart [id number] <Conclusion> Sinus rhythm RVCD LAD
--- NOTE | 2018-06-09 10:38 | CT ---
Date of service: 06/08/2018 PROCEDURE: CT Abdomen and Pelvis without intravenous contrast HISTORY: low back pain COMPARISON: None. TECHNIQUE: Without contrast.. Contrast dose: Radiation dose: Total exam DLP = 524 mGy-cm. This CT exam was performed using one or more of the following dose reduction techniques: Automated exposure control, adjustment of the mA and/or kV according to patient size, and/or use of iterative reconstruction technique. FINDINGS: LOWER THORAX: Unremarkable. LIVER: Unremarkable. No gross lesion or ductal dilatation. GALLBLADDER AND BILE DUCTS: Gallbladder removed PANCREAS: Unremarkable. No gross lesion or ductal dilatation. SPLEEN: Unremarkable. ADRENALS: Unremarkable. No mass. KIDNEYS AND URETERS: There is an extrarenal pelvis on the left. There is no evidence of hydronephrosis. There is an 8 mm nonobstructing stone in the renal pelvis. This could cause intermittent obstruction. VASCULATURE: Unremarkable. No aortic aneurysm. BOWEL: Right lower quadrant ileostomy. Resection of the colon. Perirectal scarring in unchanged. APPENDIX: Unremarkable. Normal appendix. PERITONEUM: Unremarkable. No free fluid. No free air. LYMPH NODES: Unremarkable. No enlarged lymph nodes. BLADDER: Unremarkable. REPRODUCTIVE: Unremarkable. BONES: No acute fracture. OTHER FINDINGS: None. IMPRESSION: There is an extrarenal pelvis on the left. There is no evidence of hydronephrosis. There is an 8 mm nonobstructing stone in the renal pelvis. This could cause intermittent obstruction.
--- NOTE | 2018-06-09 10:41 | CP.PCM.HP ---
<Ignacio Escoto - Last Filed: 06/09/18 10:36> History of Present Illness - History of Present Illness History of Present Illness: History and Physical for Dr. Healy 72 year old male with past medical history of DM, BPH, Ulcerative colitis s/p colectomy, and nephrolithiasis presents to the hospital worsening back pain over the last 10 days and hyperglycemia. Patient states pain is located in his lower back and there was no inciting even. Pain is nonradiating and sharp in nature. Glucose levels at home were in the 300's and 400's. Abdomen/Pelvis CT shows left 8 mm renal pelvis nonobstructing stone. Of note, patient recently had a ureteral stent placed for nephrolithiasis. PMH: As above Surgical Hx: Appendectomy, Colectomy, ileostomy Family Hx: Noncontributory Social Hx: Denies tobacco or illicit drug use. Occasional alcohol use Allergies: Oxycodone, Penicillin Medications: Reviewed, as per MAR Present on Admission - Present on Admission Any Indicators Present on Admission: No Review of Systems - Review of Systems Review of Systems: 12 point ROS as per HPI Past Patient History - Infectious Disease Hx of Infectious Diseases: None - Tetanus Immunizations Tetanus Immunization: Unknown - Past Social History Smoking Status: Never Smoked - CARDIAC Hx Hypercholesterolemia: Yes Hx Hypertension: Yes - PULMONARY Hx Respiratory Disorders: No Hx Asthma: No Hx Bronchitis: No Hx Chronic Obstructive Pulmonary Disease (COPD): No Hx Emphysema: No Hx Pneumonia: No Hx Respiratory Aspiration: No Hx Respiratory Tract Infection: No Hx Sleep Apnea: No Hx Tuberculosis: No - NEUROLOGICAL Hx Neurological Disorder: Yes Hx Alzheimer's Disease: No HX Cerebrovascular Accident: No Hx Dementia: No Hx Dizziness: Yes Hx Meningitis: No Hx Migraine: No Hx Parkinson's Disease: No Hx Seizures: No Hx Transient Ischemic Attacks (TIA): No - RENAL Hx Kidney Stones: Yes - ENDOCRINE/METABOLIC Hx Diabetes Mellitus Type 2: Yes - HEMATOLOGICAL/ONCOLOGICAL Hx Blood Transfusions: No Hx Blood Transfusion Reaction: No - MUSCULOSKELETAL/RHEUMATOLOGICAL Hx Falls: No - GASTROINTESTINAL Hx Gastrointestinal Disorders: Yes (INCONTINENT,ILEOSTOMY,CONSTIPATION, ULCERATIVE COLITIS,APPENDECTOMY,) Hx Gall Bladder Disease: Yes (CHOLEYCSTECTOMY,) Other/Comment: ULCERATIVE COLITIS,COLECTOMY,APPENDECTOMY - GENITOURINARY/GYNECOLOGICAL Hx Genitourinary Disorders: Yes (KIDNEY STONES) Hx Prostate Problems: Yes (BPH) Other/Comment: CHRONIC DYSURIA X 3 YRS. - PSYCHIATRIC Hx Substance Use: No - SURGICAL HISTORY Hx Appendectomy: Yes - ANESTHESIA Hx Anesthesia Reactions: No Hx Malignant Hyperthermia: No Meds Allergies/Adverse Reactions: Allergies Allergy/AdvReac Type Severity Reaction Status Date / Time oxycodone Allergy hallucinati Verified 12/25/17 18:22 on Penicillins Allergy hallucinati Verified 12/25/17 18:22 on aspirin Allergy hallucinati Uncoded 12/25/17 18:22 on Physical Exam - Constitutional Appears: Non-toxic, No Acute Distress - Head Exam Head Exam: ATRAUMATIC, NORMAL INSPECTION, NORMOCEPHALIC - ENT Exam ENT Exam: Mucous Membranes Moist, Normal Exam - Respiratory Exam Respiratory Exam: Clear to Auscultation Bilateral, NORMAL BREATHING PATTERN - Cardiovascular Exam Cardiovascular Exam: RRR, +S1, +S2 - GI/Abdominal Exam GI & Abdominal Exam: Normal Bowel Sounds, Soft. absent: Tenderness - Extremities Exam Extremities exam: Positive for: normal inspection. Negative for: pedal edema, tenderness - Back Exam Back exam: absent: CVA tenderness (L), CVA tenderness (R), paraspinal tenderness , vertebral tenderness - Neurological Exam Neurological exam: Alert, CN II-XII Intact, Oriented x3 - Psychiatric Exam Psychiatric exam: Normal Affect, Normal Mood - Skin Skin Exam: Intact, Normal Color, Warm Results - Vital Signs Recent Vital Signs: Last Vital Signs Temp 97.4 F L 06/09/18 06:00 Pulse 63 06/09/18 06:00 Resp 20 06/09/18 06:00 BP 160/85 H 06/09/18 06:00 Pulse Ox 97 06/09/18 06:00 - Labs Result Diagrams: 06/09/18 08:30 06/09/18 08:30 Labs: Laboratory Results - last 24 hr 06/08/18 06/09/18 06/09/18 22:05 08:30 08:30 WBC 6.3 RBC 5.28 Hgb 16.6 Hct 46.9 MCV 88.8 MCH 31.4 MCHC 35.4 RDW 12.7 Plt Count 139 MPV 9.7 Sodium 140 Potassium 4.4 Chloride 102 Carbon Dioxide 27 Anion Gap 15 BUN 16 Creatinine 0.9 Est GFR ( Amer) > 60 Est GFR (Non-Af Amer) > 60 POC Glucose (mg/dL) 138 H Random Glucose 195 H Calcium 9.5 Total Bilirubin 2.9 H AST 26 ALT 18 Alkaline Phosphatase 63 Total Protein 8.2 Albumin 4.3 Globulin 3.9 Albumin/Globulin Ratio 1.1 Assessment & Plan - Assessment and Plan (Free Text) Plan: 1. 8 mm Left renal pelvis stone 2. Diabetes Mellitus type 2 3. Ileostomy 4. Hypertension 5. Hyperlipidemia Patient will be started on aggressive IVF and pain control with Toradol. We will also add Flomax. Patient will be seen by urology and await recommendations. We will continue current medical regimen and monitor patient closely. Jevon, PGY-3 <Herrera Healy S - Last Filed: 06/09/18 20:00> Results - Vital Signs Recent Vital Signs: Last Vital Signs Temp 98.3 F 06/09/18 18:00 Pulse 75 06/09/18 18:00 Resp 18 06/09/18 18:00 BP 111/71 06/09/18 18:00 Pulse Ox 98 06/09/18 18:00 - Labs Result Diagrams: 06/09/18 08:30 06/09/18 08:30 Labs: Laboratory Results - last 24 hr 06/08/18 06/09/18 06/09/18 22:05 08:30 08:30 WBC 6.3 RBC 5.28 Hgb 16.6 Hct 46.9 MCV 88.8 MCH 31.4 MCHC 35.4 RDW 12.7 Plt Count 139 MPV 9.7 Sodium 140 Potassium 4.4 Chloride 102 Carbon Dioxide 27 Anion Gap 15 BUN 16 Creatinine 0.9 Est GFR ( Amer) > 60 Est GFR (Non-Af Amer) > 60 POC Glucose (mg/dL) 138 H Random Glucose 195 H Calcium 9.5 Total Bilirubin 2.9 H AST 26 ALT 18 Alkaline Phosphatase 63 Total Protein 8.2 Albumin 4.3 Globulin 3.9 Albumin/Globulin Ratio 1.1 06/09/18 17:57 WBC RBC Hgb Hct MCV MCH MCHC RDW Plt Count MPV Sodium Potassium Chloride Carbon Dioxide Anion Gap BUN Creatinine Est GFR ( Amer) Est GFR (Non-Af Amer) POC Glucose (mg/dL) 143 H Random Glucose Calcium Total Bilirubin AST ALT Alkaline Phosphatase Total Protein Albumin Globulin Albumin/Globulin Ratio Assessment & Plan - Assessment and Plan (Free Text) Plan: Pt seen and examined. I have reviewed the note of the certified medical coder and agree with it. I have discussed the assessment and plan with the resident. I have reviewed the patient's labs and medications. Pt with L kidney stone. He may need stent to be placed. Will wait for urology evaluation Pain is controlled on meds. Pt will be placed on IVF. On Flomax. He has a hx of stones. Will D/C tele.
--- NOTE | 2018-06-09 16:41 | CP.PCM.CON ---
<Zohreh Manning - Last Filed: 06/09/18 16:38> History of Present Illness - History of Present Illness History of Present Illness: Seen and examined at bedside, chart reviewed. Request for consult is for pain around ileostomy site. HPI: This is a 72 y.o male with a PMH of Ulcerative Colitis s/p colectomy about 50 years ao, DM,BPH, renal stones came to the hospital with c/o of worsening back pain. This has been going on for about 10 day and having problems with blood sugar. He c/o pain to the right side of his ileostomy but states that he may bet discomfort once in ahile. But recently since he has renal stone he believes this is bringing on the pain. No N/V , fever or chills, BM are brown semi loose, no blood or c/o of frequent change of appliance. He did have a ct scan of abdomen and pelvis on admission and this revealed an 8 mm stone nonobstructing stone in the renal pelvis. He does c/o dysuria upon initiation or urination but no hematuria. Patient states that he had a previous ureteral stent. No c/o dyspesia, wt. loss or loss of appetite. PMH: BPH,DM,Ulcerative colitis, nephrolithiasis PSH: Appendectomy, Colectomy, ileostomy Family Hx: Noncontributory Social Hx: Denies tobacco or illicit drug use, social alcohol use Allergies: Oxycodone, Penicillin Medications: Reviewed, as per MAR ROS: systems reviewed with positive findings, see HPI Past Patient History - Infectious Disease Hx of Infectious Diseases: None - Tetanus Immunizations Tetanus Immunization: Unknown - Past Social History Smoking Status: Never Smoked - CARDIAC Hx Hypercholesterolemia: Yes Hx Hypertension: Yes - PULMONARY Hx Respiratory Disorders: No Hx Asthma: No Hx Bronchitis: No Hx Chronic Obstructive Pulmonary Disease (COPD): No Hx Emphysema: No Hx Pneumonia: No Hx Respiratory Aspiration: No Hx Respiratory Tract Infection: No Hx Sleep Apnea: No Hx Tuberculosis: No - NEUROLOGICAL Hx Neurological Disorder: Yes Hx Alzheimer's Disease: No HX Cerebrovascular Accident: No Hx Dementia: No Hx Dizziness: Yes Hx Meningitis: No Hx Migraine: No Hx Parkinson's Disease: No Hx Seizures: No Hx Transient Ischemic Attacks (TIA): No - RENAL Hx Kidney Stones: Yes - ENDOCRINE/METABOLIC Hx Diabetes Mellitus Type 2: Yes - HEMATOLOGICAL/ONCOLOGICAL Hx Blood Transfusions: No Hx Blood Transfusion Reaction: No - MUSCULOSKELETAL/RHEUMATOLOGICAL Hx Falls: No - GASTROINTESTINAL Hx Gastrointestinal Disorders: Yes (INCONTINENT,ILEOSTOMY,CONSTIPATION, ULCERATIVE COLITIS,APPENDECTOMY,) Hx Gall Bladder Disease: Yes (CHOLEYCSTECTOMY,) Other/Comment: ULCERATIVE COLITIS,COLECTOMY,APPENDECTOMY - GENITOURINARY/GYNECOLOGICAL Hx Genitourinary Disorders: Yes (KIDNEY STONES) Hx Prostate Problems: Yes (BPH) Other/Comment: CHRONIC DYSURIA X 3 YRS. - PSYCHIATRIC Hx Substance Use: No - SURGICAL HISTORY Hx Appendectomy: Yes - ANESTHESIA Hx Anesthesia Reactions: No Hx Malignant Hyperthermia: No Meds Allergies/Adverse Reactions: Allergies Allergy/AdvReac Type Severity Reaction Status Date / Time oxycodone Allergy hallucinati Verified 12/25/17 18:22 on Penicillins Allergy hallucinati Verified 12/25/17 18:22 on aspirin Allergy hallucinati Uncoded 12/25/17 18:22 on - Medications Medications: Current Medications Amlodipine Besylate (Norvasc) 5 mg PO DAILY [facility] Last Admin: 06/09/18 10:39 Dose: 5 mg Atorvastatin Calcium (Lipitor) 10 mg PO DIN [facility] Last Admin: 06/08/18 21:50 Dose: 10 mg Sodium Chloride (Sodium Chloride 0.9%) 1,000 mls @ 100 mls/hr IV .Q10H [facility] Last Admin: 06/09/18 08:43 Dose: 100 mls/hr Insulin Detemir (Levemir) 16 unit SC HS [facility] Last Admin: 06/09/18 08:54 Dose: Not Given Ketorolac Tromethamine (Toradol) 15 mg IVP Q6H PRN PRN Reason: Pain, moderate (4-7) Ramipril (Altace) 10 mg PO DAILY [facility] Last Admin: 06/09/18 10:39 Dose: 10 mg Tamsulosin HCl (Flomax) 0.4 mg PO DAILY [facility] Last Admin: 06/09/18 10:40 Dose: 0.4 mg Physical Exam - Constitutional Appears: No Acute Distress - Head Exam Head Exam: NORMOCEPHALIC - Eye Exam Eye Exam: Normal appearance. absent: Scleral icterus - ENT Exam ENT Exam: Mucous Membranes Moist - Neck Exam Neck exam: Positive for: Normal Inspection - Respiratory Exam Respiratory Exam: NORMAL BREATHING PATTERN. absent: Respiratory Distress - Cardiovascular Exam Cardiovascular Exam: +S1, +S2 - GI/Abdominal Exam GI & Abdominal Exam: Normal Bowel Sounds, Soft, Tenderness. absent: Guarding, Hernia, Organomegaly, Rebound Additional comments: (+) ileostomy, pink stoma, stool in bag, brown and semi loose, no blood/ minimal tenderness on left ileotomy site, no palpable hernia, patient denies noticing any potrusion. - Extremities Exam Extremities exam: Positive for: pedal pulses present. Negative for: calf tenderness, pedal edema - Neurological Exam Neurological exam: Alert, Oriented x3 - Skin Skin Exam: Dry, Warm Results - Vital Signs Recent Vital Signs: Last Vital Signs Temp 97.9 F 06/09/18 12:00 Pulse 66 06/09/18 12:00 Resp 18 06/09/18 12:00 BP 147/88 06/09/18 12:00 Pulse Ox 97 06/09/18 06:00 - Labs Result Diagrams: 06/09/18 08:30 06/09/18 08:30 Labs: Laboratory Results - last 24 hr 06/08/18 06/09/18 06/09/18 22:05 08:30 08:30 WBC 6.3 RBC 5.28 Hgb 16.6 Hct 46.9 MCV 88.8 MCH 31.4 MCHC 35.4 RDW 12.7 Plt Count 139 MPV 9.7 Sodium 140 Potassium 4.4 Chloride 102 Carbon Dioxide 27 Anion Gap 15 BUN 16 Creatinine 0.9 Est GFR ( Amer) > 60 Est GFR (Non-Af Amer) > 60 POC Glucose (mg/dL) 138 H Random Glucose 195 H Calcium 9.5 Total Bilirubin 2.9 H AST 26 ALT 18 Alkaline Phosphatase 63 Total Protein 8.2 Albumin 4.3 Globulin 3.9 Albumin/Globulin Ratio 1.1 Assessment & Plan - Assessment and Plan (Free Text) Assessment: ASSESSMENT: 8 mm Left renal pelvis stone Ileostomy secodnary to colectomy for Ulcerative Colitis, c/o pain near site, no palpable hernia Diabetes Mellitus type 2 Hypertension PLAN: On IVF diet as tolerated pain mgt as per Urology if continued pain after urological intervention consider surgical evaluation Thank you for this consult and for allowing us to participate in your patient care, further recommendation based upon clinical course Seen and discussed w/ Dr. Phelps. <Damaris Phelps V - Last Filed: 06/12/18 00:08> Results - Vital Signs Recent Vital Signs: Last Vital Signs Temp 97.8 F 06/11/18 06:00 Pulse 60 06/11/18 06:00 Resp 18 06/11/18 06:00 BP 118/73 06/11/18 06:00 Pulse Ox 97 06/11/18 06:00 - Labs Result Diagrams: 06/11/18 07:30 06/11/18 07:30 Labs: Laboratory Results - last 24 hr 06/10/18 06/11/18 06/11/18 23:09 06:37 07:30 WBC 5.7 D RBC 4.64 Hgb 14.6 Hct 41.1 L MCV 88.6 MCH 31.5 MCHC 35.5 RDW 12.5 Plt Count 134 MPV 9.6 Gran % 54.2 Lymph % (Auto) 33.8 King % (Auto) 9.2 H Eos % (Auto) 2.6 Baso % (Auto) 0.2 Gran # 3.08 Lymph # (Auto) 1.9 King # (Auto) 0.5 Eos # (Auto) 0.2 Baso # (Auto) 0.01 Sodium Potassium Chloride Carbon Dioxide Anion Gap BUN Creatinine Est GFR ( Amer) Est GFR (Non-Af Amer) POC Glucose (mg/dL) 206 H 129 H Random Glucose Calcium Total Bilirubin AST ALT Alkaline Phosphatase Total Protein Albumin Globulin Albumin/Globulin Ratio 06/11/18 06/11/18 07:30 11:21 WBC RBC Hgb Hct MCV MCH MCHC RDW Plt Count MPV Gran % Lymph % (Auto) King % (Auto) Eos % (Auto) Baso % (Auto) Gran # Lymph # (Auto) King # (Auto) Eos # (Auto) Baso # (Auto) Sodium 136 Potassium 4.0 Chloride 106 Carbon Dioxide 20 L Anion Gap 14 BUN 23 H Creatinine 1.0 Est GFR ( Amer) > 60 Est GFR (Non-Af Amer) > 60 POC Glucose (mg/dL) 179 H Random Glucose 129 H Calcium 8.2 L Total Bilirubin 1.8 H AST 23 ALT 22 Alkaline Phosphatase 46 Total Protein 6.5 Albumin 3.2 Globulin 3.3 Albumin/Globulin Ratio 1.0 L Attending/Attestation - Attestation I have personally seen and examined this patient.: Yes I have fully participated in the care of the patient.: Yes I have reviewed all pertinent clinical information: Yes
[2018-06-10 07:04] LABS: HEMOGLOBIN 15.8 g/dL (14.0-18.0); MEAN CELL VOLUME 88.8 fl (80.0-105.0); MEAN CORPUSCULAR HEMOGLOBIN 31.7 pg (25.0-35.0); MEAN CORPUSCULAR HGB CONC 35.7 g/dl (31.0-37.0); MEAN PLATELET VOLUME 10.4 fl (7.0-11.0); RBC 4.98 10^6/uL (3.5-6.1); RED CELL DISTRIBUTION WIDTH 12.7 % (11.5-14.5); WHITE BLOOD COUNT 7.4 10^3/ul (4.5-11.0)
[2018-06-10 07:49] LABS: ALB/GLOB RATIO 1.1 (1.1-1.8); ALBUMIN 3.6 g/dL (3.0-4.8); ALT/SGPT 21 U/L (7-56); AST/SGOT 23 U/L (17-59); BLOOD UREA NITROGEN 22 mg/dL (7-21); CALCIUM 8.6 mg/dL (8.4-10.5); GFR NON-AFRICAN AMERICAN > 60
[2018-06-10] MEDS ORDERED: Propofol 10 mg/ml Inj (20 ML) ONE (09:10)
--- NOTE | 2018-06-10 09:11 | CP.PCM.PN ---
<Ignacio Escoto - Last Filed: 06/10/18 09:07> Subjective - Date & Time of Evaluation Date of Evaluation: 06/10/18 Time of Evaluation: 09:07 - Subjective Subjective: Patient seen and examined at bedside. Patient with complaints of mild back pain. Patient with no complaints of ileostomy pain this morning. Denies chest pain, shortness of breath, nausea, vomiting, diarrhea, fever, chills. Objective - Vital Signs/Intake and Output Vital Signs (last 24 hours): Temp Pulse Resp BP Pulse Ox 98.1 F 72 16 134/80 95 06/10/18 06:00 06/10/18 08:40 06/10/18 06:00 06/10/18 08:40 06/10/18 08:40 Intake and Output: 06/10/18 06/10/18 06:59 18:59 Intake Total 1200 Balance 1200 - Medications Medications: Current Medications Amlodipine Besylate (Norvasc) 5 mg PO DAILY [facility] Last Admin: 06/09/18 10:39 Dose: 5 mg Atorvastatin Calcium (Lipitor) 10 mg PO DIN [facility] Last Admin: 06/09/18 17:21 Dose: 10 mg Sodium Chloride (Sodium Chloride 0.9%) 1,000 mls @ 100 mls/hr IV .Q10H [facility] Last Admin: 06/09/18 08:43 Dose: 100 mls/hr Insulin Detemir (Levemir) 16 unit SC HS [facility] Last Admin: 06/09/18 22:20 Dose: Not Given Ketorolac Tromethamine (Toradol) 15 mg IVP Q6H PRN PRN Reason: Pain, moderate (4-7) Ramipril (Altace) 10 mg PO DAILY [facility] Last Admin: 06/09/18 10:39 Dose: 10 mg Tamsulosin HCl (Flomax) 0.4 mg PO DAILY [facility] Last Admin: 06/09/18 10:40 Dose: 0.4 mg - Labs Labs: 06/10/18 06:00 06/10/18 06:00 - Constitutional Appears: Non-toxic, No Acute Distress - Head Exam Head Exam: ATRAUMATIC, NORMAL INSPECTION, NORMOCEPHALIC - ENT Exam ENT Exam: Mucous Membranes Moist - Respiratory Exam Respiratory Exam: Clear to Ausculation Bilateral, NORMAL BREATHING PATTERN - Cardiovascular Exam Cardiovascular Exam: RRR, +S1, +S2 - GI/Abdominal Exam GI & Abdominal Exam: Soft, Normal Bowel Sounds. absent: Tenderness Additional comments: Ileostomy site nonerythematous. No leakage. No edema. - Neurological Exam Neurological Exam: Alert, Awake, CN II-XII Intact, Oriented x3 - Psychiatric Exam Psychiatric exam: Normal Affect, Normal Mood - Skin Skin Exam: Intact, Normal Color, Warm Assessment and Plan - Assessment and Plan (Free Text) Plan: 1. 8 mm Left renal pelvis stone 2. Diabetes Mellitus type 2 3. Ileostomy 4. Hypertension 5. Hyperlipidemia Patient is scheduled for stent placement by urology this morning. We will continue IVF and pain control. We will continue current medical regimen and monitor patient closely. He will continue on insulin for his DM2. Will await further urology recommendations. Jevon, PGY-3 <Daquan Lui - Last Filed: 06/10/18 12:09> Objective - Vital Signs/Intake and Output Vital Signs (last 24 hours): Temp Pulse Resp BP Pulse Ox 98 F 73 18 147/86 99 06/10/18 11:27 06/10/18 11:27 06/10/18 11:27 06/10/18 11:39 06/10/18 10:52 Intake and Output: 06/10/18 06/10/18 06:59 18:59 Intake Total 1200 75 Balance 1200 75 - Medications Medications: Current Medications Amlodipine Besylate (Norvasc) 5 mg PO DAILY [facility] Last Admin: 06/10/18 11:39 Dose: 5 mg Atorvastatin Calcium (Lipitor) 10 mg PO DIN [facility] Last Admin: 06/09/18 17:21 Dose: 10 mg Sodium Chloride (Sodium Chloride 0.9%) 1,000 mls @ 100 mls/hr IV .Q10H [facility] Last Admin: 06/09/18 08:43 Dose: 100 mls/hr Insulin Detemir (Levemir) 16 unit SC [facility] Last Admin: 06/09/18 22:20 Dose: Not Given Ketorolac Tromethamine (Toradol) 15 mg IVP Q6H PRN PRN Reason: Pain, moderate (4-7) Ramipril (Altace) 10 mg PO DAILY [facility] Last Admin: 06/10/18 11:39 Dose: 10 mg Tamsulosin HCl (Flomax) 0.4 mg PO DAILY [facility] Last Admin: 06/10/18 11:39 Dose: 0.4 mg - Labs Labs: 06/10/18 06:00 06/10/18 06:00 Assessment and Plan - Assessment and Plan (Free Text) Assessment: pt c/o mid lower back pain more on ambulating will order CT OF LS spine
[2018-06-10] MEDS ORDERED: cefTRIAXone (Rocephin) 1 gm Inj ONE (09:12)
[2018-06-10] MEDS ORDERED: Iohexol 240 (50 ml) ONE (09:12)
[2018-06-10] MEDS ORDERED: Gentamicin 80 mg/2mL Inj. ONE (09:25)
[2018-06-10] MEDS ORDERED: Gentamicin 80 mg/2mL Inj. IVPB ONE (09:32)
[2018-06-10] MEDS ORDERED: Iohexol 240 (50 ml) IVP ONE (09:33)
[2018-06-10] MEDS ORDERED: Lidocaine 2% Jelly (Uro-Jet) ONE (09:40)
--- NOTE | 2018-06-10 10:56 | RAD ---
Date of service: 06/10/2018 PROCEDURE: Retrograde pyelogram HISTORY: LT retrograde pyelogram, LT nephroureteral stent placement COMPARISON: TECHNIQUE: 30.1 seconds of fluoro time. Cumulative dose 7.76 mGy. Fourteen images were submitted FINDINGS: There is a stone in the left renal pelvis. There is placement of a left ureteral stent IMPRESSION: As above
--- NOTE | 2018-06-10 13:57 | CP.PCM.PN ---
<Yordy Jane - Last Filed: 06/11/18 07:29> Subjective - Date & Time of Evaluation Date of Evaluation: 06/10/18 Time of Evaluation: 13:57 - Subjective Subjective: GI Progress Note for Dr. Phelps's Service- Artemio, PGY2 Patient seen and assessed at bedside. No acute events overnight. Patient had ureteral stent placed by Urology this AM. He still endorses back pain but reports no complications or complaints regarding ostomy apparatus or stoma. Patient denies any further complaints at this time including fevers, chills, chest pain, SOB, abdominal pain, N/V/C, hematochezia, melena, or any skin changes. Objective - Vital Signs/Intake and Output Vital Signs (last 24 hours): Temp Pulse Resp BP Pulse Ox 98 F 73 18 147/86 99 06/10/18 11:27 06/10/18 11:27 06/10/18 11:27 06/10/18 11:39 06/10/18 10:52 Intake and Output: 06/10/18 06/10/18 06:59 18:59 Intake Total 1200 75 Balance 1200 75 - Medications Medications: Current Medications Amlodipine Besylate (Norvasc) 5 mg PO DAILY [facility] Last Admin: 06/10/18 11:39 Dose: 5 mg Atorvastatin Calcium (Lipitor) 10 mg PO DIN [facility] Last Admin: 06/09/18 17:21 Dose: 10 mg Sodium Chloride (Sodium Chloride 0.9%) 1,000 mls @ 100 mls/hr IV .Q10H [facility] Last Admin: 06/09/18 08:43 Dose: 100 mls/hr Insulin Detemir (Levemir) 16 unit SC HS [facility] Last Admin: 06/09/18 22:20 Dose: Not Given Ketorolac Tromethamine (Toradol) 15 mg IVP Q6H PRN PRN Reason: Pain, moderate (4-7) Last Admin: 06/10/18 13:42 Dose: 15 mg Ramipril (Altace) 10 mg PO DAILY [facility] Last Admin: 06/10/18 11:39 Dose: 10 mg Tamsulosin HCl (Flomax) 0.4 mg PO DAILY [facility] Last Admin: 06/10/18 11:39 Dose: 0.4 mg - Labs Labs: 06/10/18 06:00 06/10/18 06:00 - Constitutional Appears: Non-toxic, No Acute Distress - Head Exam Head Exam: ATRAUMATIC, NORMOCEPHALIC - Eye Exam Eye Exam: EOMI, Normal appearance - ENT Exam ENT Exam: Mucous Membranes Moist, Normal Exam - Neck Exam Neck Exam: Full ROM, Normal Inspection. absent: Tenderness - Respiratory Exam Respiratory Exam: Clear to Ausculation Bilateral, NORMAL BREATHING PATTERN. absent: Accessory Muscle Use, Chest Wall Tenderness, Decreased Breath Sounds, Prolonged Expiratory Phase, Rales, Rhonchi, Wheezes, Respiratory Distress, Stridor - Cardiovascular Exam Cardiovascular Exam: REGULAR RHYTHM, RRR, +S1, +S2. absent: Bradycardia, Tachycardia, Clicks, Diastolic murmur, Gallop, Irregular Rhythm, JVD, Rubs, +S4 , Murmur - GI/Abdominal Exam GI & Abdominal Exam: Soft, Normal Bowel Sounds. absent: Distended, Firm, Guarding, Rigid, Tenderness, Rebound Additional comments: Ostomy bag in place; Surrounding skin without signs of clinical infection; Ostomy draining brown fluid without gross blood or melena - Extremities Exam Extremities Exam: absent: Calf Tenderness, Joint Swelling, Pedal Edema, Tenderness - Neurological Exam Neurological Exam: Alert, Awake, Oriented x3 - Psychiatric Exam Psychiatric exam: Normal Affect, Normal Mood - Skin Skin Exam: Dry, Intact, Normal Color, Warm Assessment and Plan - Assessment and Plan (Free Text) Assessment: 72 year old male with a past medical history significant for DM, BPH, Ulcerative Colitis s/p colectomy with ostomy, and nephrolithiasis presents to the hospital worsening back pain over the last 10 days and hyperglycemia. GI was consulted for history of ostomy s/p colectomy. Plan: -Continue IVF -ADAT -Continue Ostomy care as scheduled -Urology consultation appreciated Patient seen and case discussed with attending, Dr. Phelps. <Damaris Phelps V - Last Filed: 06/12/18 00:07> Objective - Vital Signs/Intake and Output Vital Signs (last 24 hours): Temp Pulse Resp BP Pulse Ox 97.8 F 60 18 118/73 97 06/11/18 06:00 06/11/18 06:00 06/11/18 06:00 06/11/18 06:00 06/11/18 06:00 - Labs Labs: 06/11/18 07:30 06/11/18 07:30 Attending/Attestation - Attestation I have personally seen and examined this patient.: Yes I have fully participated in the care of the patient.: Yes I have reviewed all pertinent clinical information, including history, physical exam and plan: Yes
--- NOTE | 2018-06-10 14:51 | CT ---
Date of service: 06/10/2018 PROCEDURE: CT Lumbar Spine without contrast HISTORY: mid back pain COMPARISON: None available. TECHNIQUE: Axial computed tomography images were obtained of the lumbar spine without the use of intravenous contrast. Coronal and sagittal reformatted images were created and reviewed. Radiation dose: Total exam DLP = 886 mGy-cm. This CT exam was performed using one or more of the following dose reduction techniques: Automated exposure control, adjustment of the mA and/or kV according to patient size, and/or use of iterative reconstruction technique. FINDINGS: VERTEBRAE: Unremarkable. No fracture. Normal alignment. DISCS/SPINAL CANAL/NEURAL FORAMINA: L1-2: Unremarkable. L2-3: Unremarkable. L3-4: Moderate disc bulge with moderate central stenosis L4-5: Disc bulge with calcification of the outer fibers of the annulus. Mild facet arthropathy. Moderate central stenosis L5-S1: Facet arthropathy PARASPINAL SOFT TISSUES: Unremarkable. OTHER FINDINGS: None. IMPRESSION: No acute compression fractures. Moderate stenosis at L3-4 and L4-5
--- NOTE | 2018-06-10 14:53 | OP ---
Copied To: Romain Gu MD Attending MD: Romain Gu MD PROCEDURE DATE: 06/10/2018 PREOPERATIVE DIAGNOSIS: Left renal calculus. POSTOPERATIVE DIAGNOSIS: Left renal calculus. PROCEDURE: Cystoscopy, left retrograde pyelogram, insertion of a left ureteral stent. ATTENDING SURGEON: Romain Gu MD. ANESTHESIA: General. SPECIMENS: There were none. DRAINS: A 6 x 26 left ureteral stent. COMPLICATIONS: There were none. OPERATIVE FINDINGS: After informed consent was obtained, the patient was taken to the operating room, placed on the operating table. Anesthesia was administered. The patient was placed in dorsal lithotomy position and prepped and draped in the usual sterile fashion. The patient received IV antibiotics prior to the start of the procedure. A 21-Tristanian cystoscope was placed in the patient's urethra and advanced proximally under direct vision until the bladder was entered. A full survey inspection of bladder was then performed, which revealed multiple tiny calculi, mittal in color in the bladder. There were no bladder tumors or other foreign bodies noted. Both ureteral orifices were visualized and appeared within normal limits. On remote control mirror installer fluoroscopy, there were no obvious calcifications noted along the course of the ureter or in the area of the kidney. At this point, a 5-Tristanian Pollack catheter was introduced through the cystoscope and guided into the left ureteral orifice. A left retrograde pyelogram was then performed by instilling contrast through the Pollack catheter into the left ureter during real-time fluoroscopy. There was a large filling defect noted in the left renal pelvis. There was mild fullness of the pelvis, but there was no overt hydronephrosis noted. At this point, a sensor wire was obtained. The sensor wire was then passed through the open-ended ureteral catheter, advanced up the ureter under fluoroscopic guidance until it coiled in the upper collecting system. At this point, a 6 x 26 stent was obtained. It was passed through the cystoscope over the guidewire and into the left ureter. The stent was advanced proximally under direct and fluoroscopic guidance. When the stent was in proper position, the guidewire was removed. The upper coil of the stent was noted to be wrapped around the filling defect. The coil was seen in the bladder on cystoscopy and a coil was seen in the kidney wrapped around the filling defect on fluoroscopy. At this point, the procedure was completed, the bladder was drained and the cystoscope was removed. The patient tolerated the procedure well. He was returned to the supine position and taken to the recovery room awake in stable condition. Romain Gu MD
[2018-06-10] MEDS ORDERED: Sodium Chloride 0.9% 1,000 ML IV SCH (15:00)
[2018-06-10] MEDS: TraMADol/Apap 37.5/325 mg Tab PO SCH ×2 (15:45→21:25)
[2018-06-10] MEDS: Insulin Detemir 100 units/ml Vial (Levemir) SC SCH (23:13)
[2018-06-11] MEDS: TraMADol/Apap 37.5/325 mg Tab PO SCH ×2 (03:08→09:53)
[2018-06-11 07:43] VITALS: BP 118/73; PULSE 60; RESP 18; TEMP 97.8; O2SAT 97
[2018-06-11 08:12] LABS: BASO # 0.01 K/mm3 (0.0-2.0); BASO % 0.2 % (0.0-3.0); EOS # 0.2 (0.0-0.7); EOS % 2.6 % (1.5-5.0); GRAN # 3.08 (1.4-6.5); GRAN % 54.2 % (50.0-68.0); HEMOGLOBIN 14.6 g/dL (14.0-18.0); LYMPH # 1.9 (1.2-3.4); LYMPH % 33.8 % (22.0-35.0); MEAN CELL VOLUME 88.6 fl (80.0-105.0); MEAN CORPUSCULAR HEMOGLOBIN 31.5 pg (25.0-35.0); MEAN CORPUSCULAR HGB CONC 35.5 g/dl (31.0-37.0); MEAN PLATELET VOLUME 9.6 fl (7.0-11.0); MONO # 0.5 (0.1-0.6); MONO % 9.2 % (1.0-6.0); RBC 4.64 10^6/uL (3.5-6.1); RED CELL DISTRIBUTION WIDTH 12.5 % (11.5-14.5); WHITE BLOOD COUNT 5.7 10^3/ul (4.5-11.0)
[2018-06-11 08:31] LABS: ALBUMIN 3.2 g/dL (3.0-4.8); ALT/SGPT 22 U/L (7-56); AST/SGOT 23 U/L (17-59); BLOOD UREA NITROGEN 23 mg/dL (7-21); CALCIUM 8.2 mg/dL (8.4-10.5); GFR NON-AFRICAN AMERICAN > 60
--- NOTE | 2018-06-11 11:25 | CP.PCM.DIS ---
<Ignacio Escoto - Last Filed: 06/11/18 11:53> Provider - Provider Date of Admission: 06/10/18 16:21 Attending physician: Herrera Healy MD Primary care physician: Brenna Rodriguez MD Consults: Urology - Dr. Brittanie MCNEIL - Dr. Phelps Time Spent in preparation of Discharge (in minutes): 45 Diagnosis - Discharge Diagnosis (1) Back pain Status: Chronic (2) Dizziness Status: Resolved (3) Renal colic on left side Status: Resolved Hospital Course - Lab Results Lab Results: Most Recent Lab Values WBC 5.7 10^3/ul (4.5-11.0) D 06/11/18 07:30 RBC 4.64 10^6/uL (3.5-6.1) 06/11/18 07:30 Hgb 14.6 g/dL (14.0-18.0) 06/11/18 07:30 Hct 41.1 % (42.0-52.0) L 06/11/18 07:30 MCV 88.6 fl (80.0-105.0) 06/11/18 07:30 MCH 31.5 pg (25.0-35.0) 06/11/18 07:30 MCHC 35.5 g/dl (31.0-37.0) 06/11/18 07:30 RDW 12.5 % (11.5-14.5) 06/11/18 07:30 Plt Count 134 10^3/uL (120.0-450.0) 06/11/18 07:30 MPV 9.6 fl (7.0-11.0) 06/11/18 07:30 Gran % 54.2 % (50.0-68.0) 06/11/18 07:30 Lymph % (Auto) 33.8 % (22.0-35.0) 06/11/18 07:30 [place] % (Auto) 9.2 % (1.0-6.0) H 06/11/18 07:30 Eos % (Auto) 2.6 % (1.5-5.0) 06/11/18 07:30 Baso % (Auto) 0.2 % (0.0-3.0) 06/11/18 07:30 Gran # 3.08 (1.4-6.5) 06/11/18 07:30 Lymph # (Auto) 1.9 (1.2-3.4) 06/11/18 07:30 [place] # (Auto) 0.5 (0.1-0.6) 06/11/18 07:30 Eos # (Auto) 0.2 (0.0-0.7) 06/11/18 07:30 Baso # (Auto) 0.01 K/mm3 (0.0-2.0) 06/11/18 07:30 Sodium 136 mmol/L (132-148) 06/11/18 07:30 Potassium 4.0 mmol/L (3.6-5.0) 06/11/18 07:30 Chloride 106 mmol/L (98-107) 06/11/18 07:30 Carbon Dioxide 20 mmol/L (21-33) L 06/11/18 07:30 Anion Gap 14 (10-20) 06/11/18 07:30 BUN 23 mg/dL (7-21) H 06/11/18 07:30 Creatinine 1.0 mg/dl (0.8-1.5) 06/11/18 07:30 Est GFR ( Amer) > 60 06/11/18 07:30 Est GFR (Non-Af Amer) > 60 06/11/18 07:30 POC Glucose (mg/dL) 129 mg/dL (65-110) H 06/11/18 06:37 Random Glucose 129 mg/dL (70-110) H 06/11/18 07:30 Calcium 8.2 mg/dL (8.4-10.5) L 06/11/18 07:30 Total Bilirubin 1.8 mg/dL (0.2-1.3) H 06/11/18 07:30 AST 23 U/L (17-59) 06/11/18 07:30 ALT 22 U/L (7-56) 06/11/18 07:30 Alkaline Phosphatase 46 U/L (38-126) 06/11/18 07:30 Lactate Dehydrogenase 481 U/L (333-699) 06/08/18 16:48 Total Creatine Kinase 69 U/L (35-230) 06/08/18 16:48 Troponin I < 0.01 ng/mL 06/08/18 16:48 Total Protein 6.5 g/dL (5.8-8.3) 06/11/18 07:30 Albumin 3.2 g/dL (3.0-4.8) 06/11/18 07:30 Globulin 3.3 gm/dL 06/11/18 07:30 Albumin/Globulin Ratio 1.0 (1.1-1.8) L 06/11/18 07:30 Urine Color Yellow (YELLOW) 06/08/18 19:52 Urine Appearance Clear (CLEAR) 06/08/18 19:52 Urine pH 6.0 (4.7-8.0) 06/08/18 19:52 Ur Specific [place] 1.025 (1.005-1.035) 06/08/18 19:52 Urine Protein Negative mg/dL (<30 mg/dL) 06/08/18 19:52 Urine Glucose (UA) >=1000 mg/dL (NEGATIVE) 06/08/18 19:52 Urine Ketones Negative mg/dL (NEGATIVE) 06/08/18 19:52 Urine Blood Negative (NEGATIVE) 06/08/18 19:52 Urine Nitrate Negative (NEGATIVE) 06/08/18 19:52 Urine Bilirubin Negative (NEGATIVE) 06/08/18 19:52 Urine Urobilinogen 0.2 E.U./dL (<1 E.U./dL) 06/08/18 19:52 Ur Leukocyte Esterase Negative Xena/uL (NEGATIVE) 06/08/18 19:52 - Hospital Course Hospital Course: 72 year old male with past medical history of DM, BPH, Ulcerative colitis s/p colectomy, and nephrolithiasis presented to the ED for low back pain. Patient was found to have left sided 8mm renal pelvis stone. Patient was seen by Dr. Gu who placed a ureteral stent. Patient was also seen by Dr. Phelps for pain at his ileostomy site, which resolved on it's own. Patient will follow up with PMD and Urology. Discharge Exam - Head Exam Head Exam: ATRAUMATIC, NORMAL INSPECTION, NORMOCEPHALIC - ENT Exam ENT Exam: Mucous Membranes Moist - Respiratory Exam Respiratory Exam: NORMAL BREATHING PATTERN, UNREMARKABLE - Cardiovascular Exam Cardiovascular Exam: RRR, +S1, +S2 - GI/Abdominal Exam GI & Abdominal Exam: Normal Bowel Sounds, Soft. absent: Tenderness Additional comments: Ileostomy site clean, nontender - Extremities Exam Extremities exam: normal inspection - Neurological Exam Neurological exam: Alert, CN II-XII Intact, Oriented x3 - Psychiatric Exam Psychiatric exam: Normal Affect, Normal Mood - Skin Skin Exam: Intact, Normal Color, Warm Discharge Plan - Discharge Medications Prescriptions: Acetaminophen with Codeine [Tylenol with Codeine #3 Tablet] 1 each PO Q6H PRN # 20 tablet PRN Reason: Pain, Moderate (4-7) - Follow Up Plan Condition: FAIR Disposition: HOME/ ROUTINE Instructions: Ureteral Stent, Cystoscopy (DC) Referrals: Brenna Rodriguez MD [Primary Care Provider] - Jann Vargas MD [Staff Provider] - Romain Gu MD [Staff Provider] - <Daquan Lui - Last Filed: 06/11/18 18:47> Provider - Provider Date of Admission: 06/10/18 16:21 Attending physician: Herrera Healy MD Primary care physician: Brenna Rodriguez MD Hospital Course - Lab Results Lab Results: Most Recent Lab Values WBC 5.7 10^3/ul (4.5-11.0) D 06/11/18 07:30 RBC 4.64 10^6/uL (3.5-6.1) 06/11/18 07:30 Hgb 14.6 g/dL (14.0-18.0) 06/11/18 07:30 Hct 41.1 % (42.0-52.0) L 06/11/18 07:30 MCV 88.6 fl (80.0-105.0) 06/11/18 07:30 MCH 31.5 pg (25.0-35.0) 06/11/18 07:30 MCHC 35.5 g/dl (31.0-37.0) 06/11/18 07:30 RDW 12.5 % (11.5-14.5) 06/11/18 07:30 Plt Count 134 10^3/uL (120.0-450.0) 06/11/18 07:30 MPV 9.6 fl (7.0-11.0) 06/11/18 07:30 Gran % 54.2 % (50.0-68.0) 06/11/18 07:30 Lymph % (Auto) 33.8 % (22.0-35.0) 06/11/18 07:30 [place] % (Auto) 9.2 % (1.0-6.0) H 06/11/18 07:30 Eos % (Auto) 2.6 % (1.5-5.0) 06/11/18 07:30 Baso % (Auto) 0.2 % (0.0-3.0) 06/11/18 07:30 Gran # 3.08 (1.4-6.5) 06/11/18 07:30 Lymph # (Auto) 1.9 (1.2-3.4) 06/11/18 07:30 [place] # (Auto) 0.5 (0.1-0.6) 06/11/18 07:30 Eos # (Auto) 0.2 (0.0-0.7) 06/11/18 07:30 Baso # (Auto) 0.01 K/mm3 (0.0-2.0) 06/11/18 07:30 Sodium 136 mmol/L (132-148) 06/11/18 07:30 Potassium 4.0 mmol/L (3.6-5.0) 06/11/18 07:30 Chloride 106 mmol/L (98-107) 06/11/18 07:30 Carbon Dioxide 20 mmol/L (21-33) L 06/11/18 07:30 Anion Gap 14 (10-20) 06/11/18 07:30 BUN 23 mg/dL (7-21) H 06/11/18 07:30 Creatinine 1.0 mg/dl (0.8-1.5) 06/11/18 07:30 Est GFR ( Amer) > 60 06/11/18 07:30 Est GFR (Non-Af Amer) > 60 06/11/18 07:30 POC Glucose (mg/dL) 179 mg/dL (65-110) H 06/11/18 11:21 Random Glucose 129 mg/dL (70-110) H 06/11/18 07:30 Calcium 8.2 mg/dL (8.4-10.5) L 06/11/18 07:30 Total Bilirubin 1.8 mg/dL (0.2-1.3) H 06/11/18 07:30 AST 23 U/L (17-59) 06/11/18 07:30 ALT 22 U/L (7-56) 06/11/18 07:30 Alkaline Phosphatase 46 U/L (38-126) 06/11/18 07:30 Lactate Dehydrogenase 481 U/L (333-699) 06/08/18 16:48 Total Creatine Kinase 69 U/L (35-230) 06/08/18 16:48 Troponin I < 0.01 ng/mL 06/08/18 16:48 Total Protein 6.5 g/dL (5.8-8.3) 06/11/18 07:30 Albumin 3.2 g/dL (3.0-4.8) 06/11/18 07:30 Globulin 3.3 gm/dL 06/11/18 07:30 Albumin/Globulin Ratio 1.0 (1.1-1.8) L 06/11/18 07:30 Urine Color Yellow (YELLOW) 06/08/18 19:52 Urine Appearance Clear (CLEAR) 06/08/18 19:52 Urine pH 6.0 (4.7-8.0) 06/08/18 19:52 Ur Specific [place] 1.025 (1.005-1.035) 06/08/18 19:52 Urine Protein Negative mg/dL (<30 mg/dL) 06/08/18 19:52 Urine Glucose (UA) >=1000 mg/dL (NEGATIVE) 06/08/18 19:52 Urine Ketones Negative mg/dL (NEGATIVE) 06/08/18 19:52 Urine Blood Negative (NEGATIVE) 06/08/18 19:52 Urine Nitrate Negative (NEGATIVE) 06/08/18 19:52 Urine Bilirubin Negative (NEGATIVE) 06/08/18 19:52 Urine Urobilinogen 0.2 E.U./dL (<1 E.U./dL) 06/08/18 19:52 Ur Leukocyte Esterase Negative Xena/uL (NEGATIVE) 06/08/18 19:52
== END 2018-06-11 16:28 | disposition home or self-care (01) | DRG 694 ==
LOC: ED 14:51 → ERH 21:09 → 2RNO 23:36 → 5RNO 06-10 13:21 → OBSVTOIN 06-10 16:21
PROVIDERS: ADMIT Internal Medicine Nephrology; ATTEND Internal Medicine Nephrology
PROC: BT1F1ZZ Fluoroscopy of Left Kidney, Ureter and Bladder using Low Osmolar Contrast (ICD-10-PCS; 2018-06-10)
PROC: 0T778DZ Dilation of Left Ureter with Intraluminal Device, Via Natural or Artificial Opening Endoscopic (ICD-10-PCS; principal; 2018-06-10 09:15)
DX: N20.0 Calculus of kidney (principal); K51.90 Ulcerative colitis, unspecified, without complications; E11.65 Type 2 diabetes mellitus with hyperglycemia; I10 Essential (primary) hypertension; N40.0 Benign prostatic hyperplasia without lower urinary tract symptoms; R55 Syncope and collapse; E78.00 Pure hypercholesterolemia, unspecified; E78.5 Hyperlipidemia, unspecified; R42 Dizziness and giddiness; K43.5 Parastomal hernia without obstruction or gangrene; Z93.2 Ileostomy status; Z79.4 Long term (current) use of insulin; Z88.0 Allergy status to penicillin; Z88.6 Allergy status to analgesic agent

== ENCOUNTER 2018-07-19 06:43 | Day surgery (SDC) | payer MEDICARE, BC ==
[2018-07-15 14:41] VITALS: BMI 27.3
[2018-07-19 07:23] LABS: BASO # 0.02 K/mm3 (0.0-2.0); BASO % 0.3 % (0.0-3.0); EOS # 0.2 (0.0-0.7); EOS % 2.3 % (1.5-5.0); GRAN # 3.12 (1.4-6.5); GRAN % 48.8 % (50.0-68.0); HEMOGLOBIN 15.1 g/dL (14.0-18.0); LYMPH # 2.6 (1.2-3.4); LYMPH % 41.3 % (22.0-35.0); MEAN CELL VOLUME 90.5 fl (80.0-105.0); MEAN CORPUSCULAR HEMOGLOBIN 31.9 pg (25.0-35.0); MEAN CORPUSCULAR HGB CONC 35.3 g/dl (31.0-37.0); MEAN PLATELET VOLUME 10.1 fl (7.0-11.0); MONO # 0.5 (0.1-0.6); MONO % 7.3 % (1.0-6.0); RBC 4.73 10^6/uL (3.5-6.1); RED CELL DISTRIBUTION WIDTH 12.7 % (11.5-14.5); WHITE BLOOD COUNT 6.4 10^3/ul (4.5-11.0)
[2018-07-19 07:43] LABS: BLOOD UREA NITROGEN 18 mg/dL (7-21); CALCIUM 9.4 mg/dL (8.4-10.5); GFR NON-AFRICAN AMERICAN 59
[2018-07-19] MEDS ORDERED: Propofol 10 mg/ml Inj (20 ML) ONE (08:09)
[2018-07-19] MEDS ORDERED: Etomidate 20 mg/10ml Inj IV ONE ×2 (08:11→08:12)
[2018-07-19] MEDS ORDERED: Gentamicin 80 mg/2mL Inj. IVPB ONE (10:10)
[2018-07-19] MEDS ORDERED: Iohexol 240 (50 ml) IVP ONE (10:15)
[2018-07-19] MEDS ORDERED: Lidocaine 2% Jelly (Uro-Jet) TOP ONE (11:02)
[2018-07-19] MEDS ORDERED: Lactated Ringer's 1,000 ML IV SCH (11:30)
[2018-07-19 12:56] VITALS: TEMP 97.6
[2018-07-19 13:48] VITALS: RESP 18
[2018-07-19 15:29] VITALS: O2SAT 96
[2018-07-19 15:50] VITALS: BP 129/68; PULSE 70
--- NOTE | 2018-07-19 20:09 | OP ---
PROCEDURE DATE: 07/19/2018 PREOPERATIVE DIAGNOSES: Left renal and ureteral calculi. POSTOPERATIVE DIAGNOSES: Left renal and ureteral calculi. PROCEDURE: Cystoscopy, removal of left ureteral stent, left retrograde pyelogram, left ureteroscopy, semi-rigid and flexible, basket extraction of calculi. ATTENDING SURGEON: Dr. Romain Gu. ANESTHESIA: General. SPECIMENS: Stone fragments were sent to Pathology. DRAINS: There were none. COMPLICATIONS: There were none. OPERATIVE FINDINGS: After informed consent was obtained, the patient was taken to the operating room and placed on the operating table. Anesthesia was administered. The patient was placed in a dorsolithotomy position and prepped and draped in usual sterile fashion. The patient received intravenous antibiotics prior to start of the procedure. A 21-Romansh cystoscope was then placed in the patient's urethra and advanced proximally under direct vision until the bladder was entered. A full survey inspection of bladder was then performed, which revealed multiple tiny calculi and debris in the bladder. There was a stent noted exiting from the left ureteral orifice. There were some mild bullous edema around the stent. The right ureteral orifices were visualized and appeared within normal limits. There were no papillary tumors or suspicious lesions noted. At this point on fluoroscopy, the stent was visualized. There were no calcified stones or other calcific lesions noted alongside the stent or in the area of the left kidney. At this point, a grasping forceps was passed. The end of the stent was then grasped and was withdrawn through the urethral meatus. On fluoroscopy, the upper end of the stent was noted to uncoil easily. The stent was then grasped at the meatus and was withdrawn in its entirety. The cystoscope was then repassed and a Crowder catheter was introduced through the cystoscope and guided into the left ureteral orifice. When inside the left ureter, contrast was then instilled into the system during real-time fluoroscopy. There appeared to be some evidence of ureteritis and there was a question of some small filling defects in the renal pelvis. The upper collecting system appeared within normal limits with no large filling defects noted. At this point, a sensor wire was then passed through the open-ended ureteral catheter and advanced up the ureter under direct vision until it coiled in the upper collecting system. The bladder was then drained and the cystoscope was removed while leaving the wire in place. A 7-Romansh semi-rigid ureteroscope was then obtained. It was passed into the bladder under direct vision and guided into the left ureteral orifice. The semi-rigid scope was advanced easily up the ureter into the area of the mid ureter. At this point the ureter took an anterior and ventral course. Multiple attempts were made to pass the semi-rigid through this area, but there was some difficulty and the semi-rigid scope was then withdrawn. A Glidewire was then obtained. It was passed into the ureter and advanced up the ureter under direct and fluoroscopic guidance. The ureteroscope was then withdrawn in its entirety and a flexible ureteroscope was obtained. The flexible ureteroscope was then passed over the wire into the left ureter and advanced over the wire under direct and fluoroscopic guidance. When the scope was in the renal pelvis, the Glidewire was removed. There was a mild amount of debris and small calculi fragments noted in the renal pelvis along with some old blood clots. The scope was then advanced under direct vision into the kidney. The calyces were inspected. There were some small amount of debris noted in the upper and mid calyces. There were no large calculi encountered. The debris appeared to be mostly pieces of stone, likely encrustation from the upper limb of the stent. There are few smaller pieces of stone, likely residual, after prior ESWL. At this point, a Zero Tip Nitinol basket was passed through the flexible scope. The scope was withdrawn to the level of the renal pelvis where the large amount of debris was. Using the basket, the debris was able to be grasped and withdrawn into the bladder. Multiple passes were made with the flexible scope until the debris had been withdrawn. On the final passage, there was only few tiny fragments of stone remaining. There was some apparent pyelitis and ureteritis from the prior indwelling stent and after the last pass, the ureteroscope was removed. A portion of the stones were able to be irrigated out of the bladder and sent to Pathology as specimen. The cystoscope was then repassed while back loading the sensor wire. An open-ended ureteral catheter was then passed through the scope over the sensor wire which was then removed. When inside the ureteral orifice, contrast again was instilled into the system. There was no evidence of extravasation. The amount of debris noted was much improved compared to the initial retrograde pyelogram. On delayed views, contrast was noted to be draining from the kidney into the renal pelvis and down the ureter without evidence of obstruction. At this point, the procedure was completed, the bladder was drained. The cystoscope was removed. The patient tolerated the procedure well and he was taken to the recovery room awake, in stable condition. Romain Gu MD
== END 2018-07-19 16:30 | disposition home or self-care (01) ==
LOC: SDS 06:43
PROVIDERS: ATTEND Urology
DX: N20.2 Calculus of kidney with calculus of ureter (principal); I10 Essential (primary) hypertension; E11.9 Type 2 diabetes mellitus without complications; Z79.4 Long term (current) use of insulin
CPT/HCPCS: 36415; 52352; 74420; 80048; 82948; 85025; J0360; J1580; J1885; J2001; J2704; J2765; J3010; J7120 ×2; Q9966

== ENCOUNTER 2018-11-09 12:00 | Observation (INO) | payer MEDICARE, BC ==
[2018-11-09 12:00] VITALS: BMI 27.3
[2018-11-09] MEDS ORDERED: Morphine 2 mg/ml ISec IVP STA ×2 (14:43→17:02)
[2018-11-09 15:17] LABS: BASO # 0.02 K/mm3 (0.0-2.0); BASO % 0.3 % (0.0-3.0); EOS % 0.5 % (1.5-5.0); HEMOGLOBIN 14.9 g/dL (14.0-18.0); LYMPH # 1.7 (1.2-3.4); LYMPH % 21.3 % (22.0-35.0); MEAN CELL VOLUME 89.8 fl (80.0-105.0); MEAN CORPUSCULAR HEMOGLOBIN 31.7 pg (25.0-35.0); MEAN CORPUSCULAR HGB CONC 35.3 g/dl (31.0-37.0); MEAN PLATELET VOLUME 10.6 fl (7.0-11.0); MONO # 0.8 (0.1-0.6); MONO % 10.5 % (1.0-6.0); RBC 4.7 10^6/uL (3.5-6.1); RED CELL DISTRIBUTION WIDTH 12.3 % (11.5-14.5)
[2018-11-09 15:25] LABS: ALB/GLOB RATIO 1.2 (1.1-1.8); ALT/SGPT 20 U/L (7-56); AST/SGOT 17 U/L (17-59); BLOOD UREA NITROGEN 16 mg/dL (7-21); CALCIUM 9.8 mg/dL (8.4-10.5); GFR NON-AFRICAN AMERICAN 59
[2018-11-09 17:34] LABS: URINE APPEARANCE CLEAR (CLEAR); URINE BILIRUBIN NEGATIVE (NEGATIVE); URINE BLOOD TRACE-INTACT (NEGATIVE); URINE COLOR YELLOW (YELLOW); URINE GLUCOSE (UA) >=1000 mg/dL (NEGATIVE); URINE LEUKOCYTE ESTERASE NEGATIVE Leu/uL (NEGATIVE); URINE PROTEIN NEGATIVE mg/dL (<30 mg/dL); URINE UROBILINOGEN 0.2 E.U./dL (<1 E.U./dL)
--- NOTE | 2018-11-09 18:50 | RAD ---
PROCEDURE: Left Hip X-ray Radiographs. HISTORY: Pain. No history of recent/ related trauma provided COMPARISON: None. FINDINGS: BONES: Normal. No fracture. JOINTS: Mild degenerative changes both hips, symmetrical. SOFT TISSUES: Normal. OTHER FINDINGS: None. IMPRESSION: No significant or acute findings to account for/ related to the clinical presentation.
--- NOTE | 2018-11-09 18:51 | RAD ---
Date of service: 11/09/2018 PROCEDURE: Radiographs of the Lumbar Spine. HISTORY: left hip, back/leg pain COMPARISON: No prior. FINDINGS: BONES: Grade 1 retrolisthesis L3-L4. DISC SPACES: Multilevel degenerative changes primarily disc space narrowing and non marginal osteophyte formation. OTHER FINDINGS: Calcified nonaneurysmal abdominal aorta. IMPRESSION: Multilevel degenerative changes including retrolisthesis L3-4. No acute findings
--- NOTE | 2018-11-09 19:16 | ED PDOC ---
Arrival/HPI - General Chief Complaint: Hip Pain Time Seen by Provider: 11/09/18 13:39 Historian: Patient - History of Present Illness Narrative History of Present Illness (Text): 11/09/18 19:16 73-year-old diabetic male with a history of hypertension presents today with left-sided hip pain and leg pain for the past 2 days. Patient states he developed the pain suddenly yesterday. Patient denies any trauma or injury. He denies abdominal pain. No nausea or vomiting. He denies chest pain or shortness of breath. He denies any urinary symptoms. Patient states the pain has become so severe that he is unable to ambulate. He denies weakness in the extremities but states that occasionally has been having some paresthesias to the bilateral feet. Patient denies headaches dizziness or weakness. Patient states occasionally has some back pain. Patient denies testicular pain. Past Medical History - Provider Review Nursing Documentation Reviewed: Yes - Travel History Have you recently traveled outside [place] w/in the past 3 mons?: No - Past History Past History: No Previous - Infectious Disease Hx of Infectious Diseases: None - Tetanus Immunization Tetanus Immunization: Unknown - Cardiac Hx Hypertension: Yes Hx Pacemaker: No - Pulmonary Hx Respiratory Disorders: No Hx Asthma: No Hx Bronchitis: No Hx Chronic Obstructive Pulmonary Disease (COPD): No Hx Emphysema: No Hx Pneumonia: No Hx Respiratory Aspiration: No Hx Respiratory Tract Infection: No Hx Sleep Apnea: No Hx Tuberculosis: No - Neurological Hx Neurological Disorder: Yes Hx Alzheimer's Disease: No HX Cerebrovascular Accident: No Hx Dementia: No Hx Dizziness: Yes Hx Meningitis: No Hx Migraine: No Hx Parkinson's Disease: No Hx Seizures: No Hx Transient Ischemic Attacks (TIA): No - Renal Hx Kidney Stones: Yes - Endocrine/Metabolic Hx Diabetes Mellitus Type 2: Yes - Hematological/Oncological Hx Blood Transfusions: No Hx Blood Transfusion Reaction: No - Musculoskeletal/Rheumatological Hx Musculoskeletal Disorders: No - Gastrointestinal Hx Gastrointestinal Disorders: Yes (INCONTINENT,ILEOSTOMY,CONSTIPATION,ULCERATIVE COLITIS,APPENDECTOMY,) Hx Gall Bladder Disease: Yes (CHOLEYCSTECTOMY,) Other/Comment: ULCERATIVE COLITIS,COLECTOMY,APPENDECTOMY - Genitourinary/Gynecological Hx Genitourinary Disorders: Yes (KIDNEY STONES) Hx Prostate Problems: Yes (BPH) Other/Comment: CHRONIC DYSURIA X 3 YRS. - Psychiatric Hx Emotional Abuse: No Hx Physical Abuse: No Hx Substance Use: No - Surgical History Hx Appendectomy: Yes - Anesthesia Hx Anesthesia Reactions: No Hx Malignant Hyperthermia: No - Suicidal Assessment Feels Threatened In Home Enviroment: No Family/Social History - Physician Review Nursing Documentation Reviewed: Yes Family/Social History: Unknown Family HX Smoking Status: Never Smoked Hx Alcohol Use: Yes (OCCASIONAL) Hx Substance Use: No Hx Substance Use Treatment: No Allergies/Home Meds Allergies/Adverse Reactions: Allergies oxycodone Allergy (Severe, Verified 07/15/18 14:43) hallucination Penicillins Allergy (Severe, Verified 07/15/18 14:43) hallucination aspirin Allergy (Severe, Uncoded 07/15/18 14:43) hallucination PERCODAN Allergy (Severe, Uncoded 07/15/18 14:43) HALLUCINATIONS Home Medications: Home Meds Medication Instructions Recorded Confirmed Insulin Detemir [Levemir] 16 unit SC HS 11/09/14 07/19/18 Atorvastatin [Lipitor] 10 mg PO DIN 06/08/18 07/19/18 Crystal K 1 tab PO TID 06/08/18 07/19/18 Ramipril [Altace] 10 mg PO DAILY 06/08/18 07/19/18 amLODIPine [Norvasc] 5 mg PO DAILY 06/08/18 07/19/18 Cefuroxime Axetil [Cefuroxime] 500 mg PO BID 07/19/18 07/19/18 Review of Systems - Review of Systems Constitutional: absent: Fatigue, Fevers Respiratory: absent: SOB, Cough Cardiovascular: absent: Chest Pain, Palpitations Gastrointestinal: absent: Abdominal Pain, Constipation, Nausea, Vomiting Genitourinary Male: absent: Dysuria, Frequency, Hematuria Musculoskeletal: Arthralgias (left hip pain/ left leg pain), Back Pain Skin: absent: Rash, Pruritis Neurological: absent: Headache, Dizziness Psychiatric: absent: Anxiety, Depression Physical Exam Vital Signs Reviewed: Yes Vital Signs Temp Pulse Resp BP Pulse Ox 11/09/18 13:10 99.3 F 76 18 135/86 98 Temperature: Afebrile Blood Pressure: Normal Pulse: Regular Respiratory Rate: Normal Appearance: Positive for: Well-Appearing, Non-Toxic, Comfortable Pain Distress: None Mental Status: Positive for: Alert and Oriented X 3 - Systems Exam Head: Present: Atraumatic Mouth: Present: Moist Mucous Membranes Neck: Present: Normal Range of Motion Respiratory/Chest: Present: Clear to Auscultation, Good Air Exchange. No: Respiratory Distress, Accessory Muscle Use Cardiovascular: Present: Regular Rate and Rhythm, Normal S1, S2. No: Murmurs Abdomen: Present: Other (colostomy in place; no erythema.no tenderness). No: Tenderness, Distention, Rebound, Guarding Genitourinary Male: Present: Normal External Genitalia, Circumcised Penis, Other (chaparoned by Shawn er EMT). No: Penile Discharge, Testicle Tenderness, Penile Swelling, Testicle Swelling Back: Present: Normal Inspection, Pain with Leg Raise. No: Midline Tenderness, Paraspinal Tenderness Upper Extremity: Present: Normal Inspection Lower Extremity: Present: Normal Inspection, NORMAL PULSES, Neurovascularly Intact, Other (left leg; there is no palpable tenderness over the left hip. limited rom of hip. sensation and distal pulses intact. cap refill <2. ). No: Edema, CALF TENDERNESS, Tenderness, Swelling, Erythema, Deformity, Capillary Refill < 2 s Neurological: Present: GCS=15, Speech Normal, Motor Func Grossly Intact, Normal Sensory Function Skin: Present: Warm, Dry, Normal Color Psychiatric: Present: Alert, Oriented x 3 Medical Decision Making ED Course and Treatment: 11/09/18 19:25 73yr old male with 2 day history of left hip and leg pain. no trauma or injury. pt states he has taken morphine in the past without a reaction. cbc; wnl cmp; glucose; 300 xray ls spine; no fracture xray left hip; no fracture ua; no leukocytes, + glucose pt given 2 doses of morphine without improvement in symptoms. pt reassessment; continued pain; limited rom of left leg; pt failed attempted ambulation. pt lives alone and unable to ambulate in er. will admit for intractable pain. case discussed with dr. adams; accepts admission. impression; intractable leg pain, intractable back pain admit to med/surg Reassessment Condition: Re-examined, Unchanged - Lab Interpretations Lab Results: Total Bilirubin 1.9 mg/dL (0.2-1.3) H 11/09/18 15:00 AST 17 U/L (17-59) D 11/09/18 15:00 ALT 20 U/L (7-56) 11/09/18 15:00 Alkaline Phosphatase 71 U/L (38-126) 11/09/18 15:00 Total Protein 7.2 g/dL (5.8-8.3) 11/09/18 15:00 Albumin 4.0 g/dL (3.0-4.8) 11/09/18 15:00 Globulin 3.2 gm/dL 11/09/18 15:00 Albumin/Globulin Ratio 1.2 (1.1-1.8) 11/09/18 15:00 Urine Color Yellow (YELLOW) 11/09/18 17:25 Urine Appearance Clear (CLEAR) 11/09/18 17:25 Urine pH 6.0 (4.7-8.0) 11/09/18 17:25 Ur Specific [place] 1.025 (1.005-1.035) 11/09/18 17:25 Urine Protein Negative mg/dL (<30 mg/dL) 11/09/18 17:25 Urine Glucose (UA) >=1000 mg/dL (NEGATIVE) 11/09/18 17:25 Urine Ketones Negative mg/dL (NEGATIVE) 11/09/18 17:25 Urine Blood Trace-intact (NEGATIVE) H 11/09/18 17:25 Urine Nitrate Negative (NEGATIVE) 11/09/18 17:25 Urine Bilirubin Negative (NEGATIVE) 11/09/18 17:25 Urine Urobilinogen 0.2 E.U./dL (<1 E.U./dL) 11/09/18 17:25 Ur Leukocyte Esterase Negative Xena/uL (NEGATIVE) 11/09/18 17:25 Urine RBC 10 - 15 /hpf (0-2) H 11/09/18 17:25 Urine WBC 2 - 5 /hpf (0-6) 11/09/18 17:25 Ur Epithelial Cells 4 - 5 /hpf (0-5) 11/09/18 17:25 - RAD Interpretation Radiology Orders: 11/09/18 14:34 Hip Left [HIP MIN 2V W/ PELVIS LT] [RAD] Stat 11/09/18 15:32 LS SPINE WITH OBL > 18 YRS OLD [RAD] Stat - Medication Orders Current Medication Orders: Discontinued Medications Morphine Sulfate (Morphine) 2 mg IVP STAT STA Stop: 11/09/18 14:44 Last Admin: 11/09/18 15:14 Dose: 2 mg MAR Pain Assessment Document 11/09/18 15:14 SS (Rec: 11/09/18 15:14 SS [email or web address]) Pain Reassessment Is this a pain reassessment? No IVP Administration Document 11/09/18 15:14 SS (Rec: 11/09/18 15:14 SS [email or web address]) Charges for Administration # of IVP Administrations 1 Morphine Sulfate (Morphine) 2 mg IVP STAT STA Stop: 11/09/18 17:03 Last Admin: 11/09/18 17:05 Dose: 2 mg MAR Pain Assessment Document 11/09/18 17:05 SS (Rec: 11/09/18 17:29 SS [email or web address]) Pain Reassessment Is this a pain reassessment? Yes Sleep Is patient sleeping during reassessment? No Presence of Pain Presence of Pain Yes Location Left, Right or Bilateral Left Pain Location Body Site Leg IVP Administration Document 11/09/18 17:05 SS (Rec: 11/09/18 17:29 SS [email or web address]) Charges for Administration # of IVP Administrations 1 Disposition/Present on Arrival - Present on Arrival Any Indicators Present on Arrival: No History of DVT/PE: No History of Uncontrolled Diabetes: No Urinary Catheter: No History of Decub. Ulcer: No History Surgical Site Infection Following: None - Disposition Have Diagnosis and Disposition been Completed?: Yes Diagnosis: Back pain, Intractable pain, Unable to ambulate, Leg pain, Hyperglycemia Disposition: HOSPITALIZED Disposition Time: 18:20 Patient Plan: Admission Condition: FAIR
[2018-11-09] MEDS: Sodium Chloride 0.9% 1,000 ML IV SCH (20:52)
[2018-11-09] MEDS: Insulin Lispro (humaLOG) LOW Coverage SC SCH (22:04)
[2018-11-09] MEDS: Insulin Detemir 100 units/ml Vial (Levemir) SC SCH (22:21)
[2018-11-09] MEDS: Morphine 4 mg/ml ISec IVP PRN (22:23)
[2018-11-10] MEDS: Morphine 4 mg/ml ISec IVP PRN ×2 (02:14→08:02)
[2018-11-10] MEDS ORDERED: Insulin Lispro 1 UNITS/0.01 ML SC STA (02:51)
--- NOTE | 2018-11-10 05:10 | CP.PCM.HP ---
<Brandy Phillips - Last Filed: 11/10/18 11:26> History of Present Illness - History of Present Illness History of Present Illness: 72yo PMHx DM, BPH, UC s/p colectomy, HTN, HLD, and nephrolithiasis presents with acute sharp LLE pain for 2 days. Patient denies any inciting factor and reports the pain began suddenly. He denied any fall/trauma/injury to the area. Patient reports pain is located in his left hip and radiates down to his left knee. He rated it 7-8/10 at its worst and no pain at rest. Patient's pain is exacerbated by movement and walking and improves with rest. He admits to associated numbness and tingling down from his left hip to below his left knee. He denied any fever, chills, headache, dizziness, chest pain, palpitations, SOB, cough, abd pain, nausea, vomiting, swelling in his legs b/l. patient does complain of polyuria and polydipsia. He denies any change sin his ostomy output; patient changes his ostomy bag every 2 days and has not noticed and blood or melena. He denied any saddle anesthesia/loss of bladder function. PMHx: DM, BPH, UC s/p colectomy, HTN, HLD, and nephrolithiasis SurgHx: Appendectomy, Colectomy, ileostomy PUroProcedures: cysto and ureteroscopy with removal of L ureteral stent and basket extraction of calculi 07/2018; Cysto with L retrograde pyelogram and L ureteral stent 05/2018; Cysto with L retro pyelogram and insertion of L ureteral stent 12/2017 FamHx: lung ca with mets father, mother is 95yo and healthy SocHx: Denies tobacco or illicit drug use. Occasional alcohol use. Lives with friend. Retired teacher. ALL: Oxycodone, Penicillin Meds: Reviewed, as per MAR PMD: Black Present on Admission - Present on Admission Any Indicators Present on Admission: Yes History of Uncontrolled Diabetes: Yes Review of Systems - Review of Systems All systems: reviewed and no additional remarkable complaints except Review of Systems: as per HPI Past Patient History - Infectious Disease Hx of Infectious Diseases: None - Tetanus Immunizations Tetanus Immunization: Unknown - Past Social History Smoking Status: Never Smoked - CARDIAC Hx Cardiac Disorders: Yes Hx Hypercholesterolemia: Yes Hx Hypertension: Yes Hx Pacemaker: No - PULMONARY Hx Respiratory Disorders: No Hx Asthma: No Hx Bronchitis: No Hx Chronic Obstructive Pulmonary Disease (COPD): No Hx Emphysema: No Hx Pneumonia: No Hx Respiratory Aspiration: No Hx Respiratory Tract Infection: No Hx Sleep Apnea: No Hx Tuberculosis: No - NEUROLOGICAL Hx Neurological Disorder: Yes Hx Alzheimer's Disease: No HX Cerebrovascular Accident: No Hx Dementia: No Hx Dizziness: Yes Hx Meningitis: No Hx Migraine: No Hx Parkinson's Disease: No Hx Seizures: No Hx Transient Ischemic Attacks (TIA): No - HEENT Hx Blind: No Hx Cataracts: No Hx Difficulty Chewing: No Hx Epistaxis: No Hx Macular Degeneration: No - RENAL Hx Chronic Kidney Disease: Yes Hx Kidney Stones: Yes - ENDOCRINE/METABOLIC Hx Endocrine Disorders: Yes Hx Diabetes Mellitus Type 2: Yes - HEMATOLOGICAL/ONCOLOGICAL Hx Blood Disorders: No Hx AIDS: No Hx Anemia: No Hx Cancer: No Hx Chemotherapy: No Hx Cirrhosis: No Hx Hepatitis A: No Hx Hepatitis C: No Hx Metastesis: No Hx Shingles: No Hx Unexplained Bleeding: No - INTEGUMENTARY Hx Dermatological Problems: No Hx Eczema: No Hx Melanoma: No Hx Psoriasis: No - MUSCULOSKELETAL/RHEUMATOLOGICAL Hx Musculoskeletal Disorders: No Hx Falls: No - GASTROINTESTINAL Hx Gastrointestinal Disorders: Yes (INCONTINENT,ILEOSTOMY,CONSTIPATION,ULCERATIVE COLITIS,APPENDECTOMY,) Hx Gall Bladder Disease: Yes (CHOLEYCSTECTOMY,) Hx Liver Failure: Yes Other/Comment: ULCERATIVE COLITIS,COLECTOMY,APPENDECTOMY - GENITOURINARY/GYNECOLOGICAL Hx Genitourinary Disorders: Yes (KIDNEY STONES) Hx Hematuria: Yes Hx Prostate Problems: Yes (BPH) Hx Urinary Tract Infection: Yes Other/Comment: CHRONIC DYSURIA X 3 YRS. - PSYCHIATRIC Hx Emotional Abuse: No Hx Physical Abuse: No Hx Substance Use: No - SURGICAL HISTORY Hx Surgeries: Yes Hx Appendectomy: Yes Hx Cholecystectomy: Yes - ANESTHESIA Hx Anesthesia Reactions: No Hx Malignant Hyperthermia: No Meds Allergies/Adverse Reactions: Allergies Allergy/AdvReac Type Severity Reaction Status Date / Time oxycodone Allergy Severe hallucinati Verified 11/10/18 00:54 on Penicillins Allergy Severe hallucinati Verified 07/15/18 14:43 on PERCODAN Allergy Severe HALLUCINATI Uncoded 11/10/18 00:54 ONS aspirin AdvReac Severe sweating Uncoded 11/10/18 00:54 Physical Exam - Constitutional Appears: Non-toxic, In Acute Distress (pain) - Head Exam Head Exam: ATRAUMATIC, NORMAL INSPECTION, NORMOCEPHALIC - Eye Exam Eye Exam: EOMI, Normal appearance, PERRL. absent: Conjunctival injection, Scleral icterus Pupil Exam: NORMAL ACCOMODATION - ENT Exam ENT Exam: Mucous Membranes Moist - Neck Exam Neck exam: Positive for: Full Rom, Normal Inspection. Negative for: Lymphadenopathy - Respiratory Exam Respiratory Exam: Clear to Auscultation Bilateral, NORMAL BREATHING PATTERN. absent: Accessory Muscle Use, Rales, Rhonchi, Wheezes, Respiratory Distress - Cardiovascular Exam Cardiovascular Exam: +S1, +S2. absent: Systolic Murmur - GI/Abdominal Exam GI & Abdominal Exam: Normal Bowel Sounds, Soft, Tenderness (LLQ to palpation). absent: Firm, Guarding, Rigid Additional comments: ostomy bag with stool noted- ostomy is patent and pink - Extremities Exam Extremities exam: Positive for: normal capillary refill, normal inspection, tenderness (along left hip to palpation; patient also had tenderness at b/l calves when squeezed), pedal pulses present. Negative for: pedal edema - Back Exam Back exam: NORMAL INSPECTION. absent: rash noted - Neurological Exam Neurological exam: Alert, CN II-XII Intact, Oriented x3 - Psychiatric Exam Psychiatric exam: Normal Affect, Normal Mood - Skin Skin Exam: Dry, Intact, Normal Color, Warm Results - Vital Signs Recent Vital Signs: Last Vital Signs Temp 98.9 F 11/09/18 22:14 Pulse 63 11/09/18 22:14 Resp 18 11/09/18 22:34 BP 138/85 11/09/18 22:14 Pulse Ox 98 11/09/18 22:14 - Labs Result Diagrams: 11/10/18 06:00 11/10/18 06:00 Labs: Laboratory Results - last 24 hr 11/09/18 11/09/18 11/09/18 15:00 15:00 17:25 WBC 8.0 RBC 4.70 Hgb 14.9 Hct 42.2 MCV 89.8 MCH 31.7 MCHC 35.3 RDW 12.3 Plt Count 145 MPV 10.6 Neut % (Auto) 67.4 Lymph % (Auto) 21.3 L [place] % (Auto) 10.5 H Eos % (Auto) 0.5 L Baso % (Auto) 0.3 Lymph # (Auto) 1.7 [place] # (Auto) 0.8 H Eos # (Auto) 0.0 Baso # (Auto) 0.02 Absolute Neuts (auto) 5.39 Sodium 137 Potassium 4.4 Chloride 102 Carbon Dioxide 29 Anion Gap 11 BUN 16 Creatinine 1.2 Est GFR ( Amer) > 60 Est GFR (Non-Af Amer) 59 POC Glucose (mg/dL) Random Glucose 300 H Calcium 9.8 Total Bilirubin 1.9 H AST 17 D ALT 20 Alkaline Phosphatase 71 Total Protein 7.2 Albumin 4.0 Globulin 3.2 Albumin/Globulin Ratio 1.2 Urine Color Yellow Urine Appearance Clear Urine pH 6.0 Ur Specific [place] 1.025 Urine Protein Negative Urine Glucose (UA) >=1000 Urine Ketones Negative Urine Blood Trace-intact H Urine Nitrate Negative Urine Bilirubin Negative Urine Urobilinogen 0.2 Ur Leukocyte Esterase Negative Urine RBC 10 - 15 H Urine WBC 2 - 5 Ur Epithelial Cells 4 - 5 11/09/18 11/10/18 11/10/18 22:03 01:24 05:02 WBC RBC Hgb Hct MCV MCH MCHC RDW Plt Count MPV Neut % (Auto) Lymph % (Auto) [place] % (Auto) Eos % (Auto) Baso % (Auto) Lymph # (Auto) [place] # (Auto) Eos # (Auto) Baso # (Auto) Absolute Neuts (auto) Sodium Potassium Chloride Carbon Dioxide Anion Gap BUN Creatinine Est GFR ( Amer) Est GFR (Non-Af Amer) POC Glucose (mg/dL) 193 H 334 H 123 H Random Glucose Calcium Total Bilirubin AST ALT Alkaline Phosphatase Total Protein Albumin Globulin Albumin/Globulin Ratio Urine Color Urine Appearance Urine pH Ur Specific [place] Urine Protein Urine Glucose (UA) Urine Ketones Urine Blood Urine Nitrate Urine Bilirubin Urine Urobilinogen Ur Leukocyte Esterase Urine RBC Urine WBC Ur Epithelial Cells Assessment & Plan - Assessment and Plan (Free Text) Assessment: - L hip and LLE pain- suspect compression fracture vs sciatica vs disc herniation vs radiculopathy - B/l calf pain - Gait dysfunction secondary to pain - 8mm nonobstructing L renal calculus - Uncontrolled DM - BPH - HTN - HLD - UC s/p colectomy - Ostomy management - Pain control Plan: Patient admitted to med/surg for further management. Patient had hip/pelvis xray which was unremarkable. LS Spine revealed multilevel degenerative changes including retrolisthesis L3-4 with no acute findings. Ortho consulted. CT Lumbar spine ordered- will f/u. 25OH Vit D ordered- will f/u. Neurology also consulted for L sided sciatica- will f/u reccs. Continue pain management with Morphine 4q4 severe pain and 2q6 moderate pain. As patient complained of b/l calf pain, LE dopplers were ordered- will f/u. PT consulted for gait dysfunction. As patient complained of LLQ abdominal pain, CT Abd/pelvis ordered which revealed 8mm nonobstructing L renal calculus which had decreased in size with a dilated left extrarenal pelvis. Patient on fluids and flomax and to strain urine. Patient's UA findings can be explained by renal calculus. Will consider urology consult. RLQ ostomy noted on CT Abd/pelvis with no obstruction. Patient's blood sugars uncontrolled at this time. Negative ketones on U/A. HgbA1c ordered to f/u. Patient on accuchecks achs and RISS low and Levemir 16u hs. Will monitor and adjust. Patient also has life skills coordinator on board. Patient's history of BPH confirmed with CT abd/pelvis findings of asymmetrically enlarged prostate gland with capsular bulging on the right. Flomax on board. Patient's home Norvasc 5qd and Ramipril 10qd ordered for HTN; will maintain normotension. Continued home L ipitor 10hs with FLP wnl. Continue HHD. Will monitor patient closely and appreciate Ortho and Neuro reccs. Discussed with Dr. Niraj Phillips PGY3 <Herrera Healy S - Last Filed: 11/10/18 19:30> Results - Vital Signs Recent Vital Signs: Last Vital Signs Temp 99.1 F 11/10/18 17:21 Pulse 74 11/10/18 17:21 Resp 20 11/10/18 17:21 BP 128/68 11/10/18 17:21 Pulse Ox 95 11/10/18 17:21 - Labs Result Diagrams: 11/10/18 06:00 11/10/18 06:00 Labs: Laboratory Results - last 24 hr 11/09/18 11/10/18 11/10/18 22:03 01:24 05:02 WBC RBC Hgb Hct MCV MCH MCHC RDW Plt Count MPV Neut % (Auto) Lymph % (Auto) [place] % (Auto) Eos % (Auto) Baso % (Auto) Lymph # (Auto) [place] # (Auto) Eos # (Auto) Baso # (Auto) Absolute Neuts (auto) Sodium Potassium Chloride Carbon Dioxide Anion Gap BUN Creatinine Est GFR ( Amer) Est GFR (Non-Af Amer) POC Glucose (mg/dL) 193 H 334 H 123 H Random Glucose Hemoglobin A1c Calcium Phosphorus Magnesium Total Bilirubin Direct Bilirubin AST ALT Alkaline Phosphatase Total Protein Albumin Globulin Albumin/Globulin Ratio Triglycerides Cholesterol LDL Cholesterol Direct HDL Cholesterol 25-OH Vitamin D Total Free T4 TSH 3rd Generation 11/10/18 11/10/18 11/10/18 06:00 06:00 06:00 WBC RBC Hgb Hct MCV MCH MCHC RDW Plt Count MPV Neut % (Auto) Lymph % (Auto) [place] % (Auto) Eos % (Auto) Baso % (Auto) Lymph # (Auto) [place] # (Auto) Eos # (Auto) Baso # (Auto) Absolute Neuts (auto) Sodium 141 Potassium 3.7 Chloride 107 Carbon Dioxide 31 Anion Gap 7 L BUN 17 Creatinine 1.2 Est GFR ( Amer) > 60 Est GFR (Non-Af Amer) 59 POC Glucose (mg/dL) Random Glucose 84 Hemoglobin A1c 13.3 H D Calcium 9.2 Phosphorus 3.4 Magnesium 1.8 Total Bilirubin 2.1 H Direct Bilirubin 0.0 AST 17 ALT 20 Alkaline Phosphatase 57 Total Protein 7.2 Albumin 3.7 Globulin 3.5 Albumin/Globulin Ratio 1.1 Triglycerides 126 Cholesterol 177 LDL Cholesterol Direct 97 HDL Cholesterol 46 25-OH Vitamin D Total Free T4 1.25 TSH 3rd Generation 2.60 11/10/18 11/10/18 11/10/18 06:00 07:35 10:20 WBC 7.2 RBC 4.80 Hgb 15.1 Hct 43.6 MCV 90.8 MCH 31.5 MCHC 34.6 RDW 12.6 Plt Count 147 MPV 10.3 Neut % (Auto) 51.9 Lymph % (Auto) 37.6 H [place] % (Auto) 8.7 H Eos % (Auto) 1.5 Baso % (Auto) 0.3 Lymph # (Auto) 2.7 [place] # (Auto) 0.6 Eos # (Auto) 0.1 Baso # (Auto) 0.02 Absolute Neuts (auto) 3.76 Sodium Potassium Chloride Carbon Dioxide Anion Gap BUN Creatinine Est GFR ( Amer) Est GFR (Non-Af Amer) POC Glucose (mg/dL) 107 Random Glucose Hemoglobin A1c Calcium Phosphorus Magnesium Total Bilirubin Direct Bilirubin AST ALT Alkaline Phosphatase Total Protein Albumin Globulin Albumin/Globulin Ratio Triglycerides Cholesterol LDL Cholesterol Direct HDL Cholesterol 25-OH Vitamin D Total 25.7 L Free T4 TSH 3rd Generation 11/10/18 11/10/18 11:11 16:32 WBC RBC Hgb Hct MCV MCH MCHC RDW Plt Count MPV Neut % (Auto) Lymph % (Auto) [place] % (Auto) Eos % (Auto) Baso % (Auto) Lymph # (Auto) [place] # (Auto) Eos # (Auto) Baso # (Auto) Absolute Neuts (auto) Sodium Potassium Chloride Carbon Dioxide Anion Gap BUN Creatinine Est GFR ( Amer) Est GFR (Non-Af Amer) POC Glucose (mg/dL) 255 H 259 H Random Glucose Hemoglobin A1c Calcium Phosphorus Magnesium Total Bilirubin Direct Bilirubin AST ALT Alkaline Phosphatase Total Protein Albumin Globulin Albumin/Globulin Ratio Triglycerides Cholesterol LDL Cholesterol Direct HDL Cholesterol 25-OH Vitamin D Total Free T4 TSH 3rd Generation Assessment & Plan - Assessment and Plan (Free Text) Assessment: Pt seen and examined by me. I have reviewed the note of the senior medical transcriptionist and I agree with it. I have discussed the assessment and plan with the resident. I have reviewed the medications and the last labs.Pt with severe L hip pain. He is not able to ambulate due to 10/10 pain. He has been placed on Morphine for pain. His DM-2 uncontrolled and will be on ISS with coverage. Plan: Orhto evaluation. Will get CT Abd/Pelvis due to LLQ pain. Pt will be on Levemir for DM-2. Pt will be on Norvasc and Rampiril for HTN. Pt will be on Lipitor for dyslipidemia. Will need PT.
[2018-11-10] MEDS: Sodium Chloride 0.9% 1,000 ML IV SCH ×3 (06:04→21:14)
[2018-11-10 06:42] LABS: BASO # 0.02 K/mm3 (0.0-2.0); BASO % 0.3 % (0.0-3.0); EOS # 0.1 (0.0-0.7); EOS % 1.5 % (1.5-5.0); HEMOGLOBIN 15.1 g/dL (14.0-18.0); LYMPH # 2.7 (1.2-3.4); LYMPH % 37.6 % (22.0-35.0); MEAN CELL VOLUME 90.8 fl (80.0-105.0); MEAN CORPUSCULAR HEMOGLOBIN 31.5 pg (25.0-35.0); MEAN CORPUSCULAR HGB CONC 34.6 g/dl (31.0-37.0); MEAN PLATELET VOLUME 10.3 fl (7.0-11.0); MONO # 0.6 (0.1-0.6); MONO % 8.7 % (1.0-6.0); RBC 4.8 10^6/uL (3.5-6.1); RED CELL DISTRIBUTION WIDTH 12.6 % (11.5-14.5); WHITE BLOOD COUNT 7.2 10^3/uL (4.5-11.0)
[2018-11-10 06:43] LABS: ALB/GLOB RATIO 1.1 (1.1-1.8); ALBUMIN 3.7 g/dL (3.0-4.8); ALT/SGPT 20 U/L (7-56); AST/SGOT 17 U/L (17-59); BLOOD UREA NITROGEN 17 mg/dL (7-21); CALCIUM 9.2 mg/dL (8.4-10.5); GFR NON-AFRICAN AMERICAN 59; HDL CHOLESTEROL 46 mg/dL (29-60)
[2018-11-10 06:57] LABS: FREE T4 1.25 ng/dL (0.78-2.19)
[2018-11-10 07:01] LABS: LDL CHOLESTEROL 97 mg/dL (0-129)
[2018-11-10] MEDS: Insulin Lispro (humaLOG) LOW Coverage SC SCH ×3 (07:58→17:08)
--- NOTE | 2018-11-10 10:31 | CT ---
Date of service: 11/10/2018 PROCEDURE: CT Lumbar Spine without contrast HISTORY: back pain ,stenosis possible COMPARISON: None available. TECHNIQUE: Axial computed tomography images were obtained of the lumbar spine without the use of intravenous contrast. Coronal and sagittal reformatted images were created and reviewed. Radiation dose: Total exam DLP = 589.55 mGy-cm. This CT exam was performed using one or more of the following dose reduction techniques: Automated exposure control, adjustment of the mA and/or kV according to patient size, and/or use of iterative reconstruction technique. FINDINGS: VERTEBRAE: Unremarkable. No fracture. Normal alignment. DISCS/SPINAL CANAL/NEURAL FORAMINA: Slight retrolisthesis at L3-4 with disc bulge and facet and ligament hypertrophy contribute to central canal stenosis. L4-5 calcified disc herniation with facet and ligament hypertrophy contribute to severe central canal stenosis and bilateral inferior foraminal encroachment. L5-S1 disc bulge with anterior epidural fat indentation. Multilevel facet arthropathy. PARASPINAL SOFT TISSUES: Unremarkable. OTHER FINDINGS: Incidental note is made of an 8 millimeter calculus in the left renal pelvis with minimal caliectasis. IMPRESSION: Incidental note is made of an 8 millimeter calculus in the left renal pelvis with minimal caliectasis. Slight retrolisthesis at L3-4 with disc bulge and facet and ligament hypertrophy contribute to central canal stenosis. L4-5 calcified disc herniation with facet and ligament hypertrophy contribute to severe central canal stenosis and bilateral inferior foraminal encroachment. L5-S1 disc bulge with anterior epidural fat indentation. Multilevel facet arthropathy.
--- NOTE | 2018-11-10 11:00 | CT ---
Date of service: 11/10/2018 PROCEDURE: CT Abdomen and Pelvis without intravenous contrast HISTORY: LLQ pain COMPARISON: 06/08/2018 TECHNIQUE: Technique. Contrast dose: Radiation dose: Total exam DLP = 600.25 mGy-cm. This CT exam was performed using one or more of the following dose reduction techniques: Automated exposure control, adjustment of the mA and/or kV according to patient size, and/or use of iterative reconstruction technique. FINDINGS: LOWER THORAX: Unremarkable. LIVER: Unremarkable. No gross lesion or ductal dilatation. GALLBLADDER AND BILE DUCTS: Cholecystectomy. PANCREAS: Unremarkable. No gross lesion or ductal dilatation. SPLEEN: Unremarkable. ADRENALS: Unremarkable. No mass. KIDNEYS AND URETERS: Decrease in size of a nonobstructive calculus in the left renal pelvis with a dilated left extrarenal pelvis. VASCULATURE: Unremarkable. No aortic aneurysm. No aortic atherosclerotic calcification or mural plaque present. BOWEL: Right lower quadrant ostomy. No obstruction. APPENDIX: Unremarkable. Normal appendix. PERITONEUM: Unremarkable. No free fluid. No free air. LYMPH NODES: Unremarkable. No enlarged lymph nodes. BLADDER: Unremarkable. REPRODUCTIVE: Asymmetrically enlarged prostate gland with capsular bulging on the right; correlate with PSA levels. BONES: No acute fracture. OTHER FINDINGS: None. IMPRESSION: Decrease in size of a nonobstructive calculus in the left renal pelvis with a dilated left extrarenal pelvis. Right lower quadrant ostomy. No obstruction. Asymmetrically enlarged prostate gland with capsular bulging on the right; correlate with PSA levels.
[2018-11-10] MEDS: Morphine 2 mg/ml ISec IVP PRN ×2 (13:12→23:18)
--- NOTE | 2018-11-10 14:04 | CP.PCM.CON ---
History of Present Illness - History of Present Illness History of Present Illness: 72yo PMHx DM, BPH, UC s/p colectomy, HTN, HLD, and nephrolithiasis presents with acute sharp LLE pain for 2 days. Patient denies any inciting factor and reports the pain began suddenly. He denied any fall/trauma/injury to the area. Patient reports pain is located in his left hip and radiates down to his left knee. He rated it 7-8/10 at its worst and no pain at rest. Patient's pain is exacerbated by movement and walking and improves with rest. He admits to associated numbness and tingling down from his left hip to below his left knee. He denied any fever, chills, headache, dizziness, chest pain, palpitations, SOB, cough, abd pain, nausea, vomiting, swelling in his legs b/l. patient does complain of polyuria and polydipsia. He denies any change sin his ostomy output; patient changes his ostomy bag every 2 days and has not noticed and blood or melena. He denied any saddle anesthesia/loss of bladder function. PMHx: DM, BPH, UC s/p colectomy, HTN, HLD, and nephrolithiasis SurgHx: Appendectomy, Colectomy, ileostomy PUroProcedures: cysto and ureteroscopy with removal of L ureteral stent and basket extraction of calculi 07/2018; Cysto with L retrograde pyelogram and L ureteral stent 05/2018; Cysto with L retro pyelogram and insertion of L ureteral stent 12/2017 FamHx: lung ca with mets father, mother is 95yo and healthy SocHx: Denies tobacco or illicit drug use. Occasional alcohol use. Lives with friend. Retired teacher. ALL: Oxycodone, Penicillin Meds: Reviewed, as per MAR Review of Systems - Review of Systems All systems: reviewed and no additional remarkable complaints except Review of Systems: as per hpi Past Patient History - Infectious Disease Hx of Infectious Diseases: None - Tetanus Immunizations Tetanus Immunization: Unknown - Past Social History Smoking Status: Never Smoked - CARDIAC Hx Cardiac Disorders: Yes Hx Hypercholesterolemia: Yes Hx Hypertension: Yes Hx Pacemaker: No - PULMONARY Hx Respiratory Disorders: No Hx Asthma: No Hx Bronchitis: No Hx Chronic Obstructive Pulmonary Disease (COPD): No Hx Emphysema: No Hx Pneumonia: No Hx Respiratory Aspiration: No Hx Respiratory Tract Infection: No Hx Sleep Apnea: No Hx Tuberculosis: No - NEUROLOGICAL Hx Neurological Disorder: Yes Hx Alzheimer's Disease: No HX Cerebrovascular Accident: No Hx Dementia: No Hx Dizziness: Yes Hx Meningitis: No Hx Migraine: No Hx Parkinson's Disease: No Hx Seizures: No Hx Transient Ischemic Attacks (TIA): No - HEENT Hx Blind: No Hx Cataracts: No Hx Difficulty Chewing: No Hx Epistaxis: No Hx Macular Degeneration: No - RENAL Hx Chronic Kidney Disease: Yes Hx Kidney Stones: Yes - ENDOCRINE/METABOLIC Hx Endocrine Disorders: Yes Hx Diabetes Mellitus Type 2: Yes - HEMATOLOGICAL/ONCOLOGICAL Hx Blood Disorders: No Hx AIDS: No Hx Anemia: No Hx Cancer: No Hx Chemotherapy: No Hx Cirrhosis: No Hx Hepatitis A: No Hx Hepatitis C: No Hx Metastesis: No Hx Shingles: No Hx Unexplained Bleeding: No - INTEGUMENTARY Hx Dermatological Problems: No Hx Eczema: No Hx Melanoma: No Hx Psoriasis: No - MUSCULOSKELETAL/RHEUMATOLOGICAL Hx Musculoskeletal Disorders: No Hx Falls: No - GASTROINTESTINAL Hx Gastrointestinal Disorders: Yes (INCONTINENT,ILEOSTOMY,CONSTIPATION,ULCERA TIVE COLITIS,APPENDECTOMY,) Hx Gall Bladder Disease: Yes (CHOLEYCSTECTOMY,) Hx Liver Failure: Yes Other/Comment: ULCERATIVE COLITIS,COLECTOMY,APPENDECTOMY - GENITOURINARY/GYNECOLOGICAL Hx Genitourinary Disorders: Yes (KIDNEY STONES) Hx Hematuria: Yes Hx Prostate Problems: Yes (BPH) Hx Urinary Tract Infection: Yes Other/Comment: CHRONIC DYSURIA X 3 YRS. - PSYCHIATRIC Hx Emotional Abuse: No Hx Physical Abuse: No Hx Substance Use: No - SURGICAL HISTORY Hx Surgeries: Yes Hx Appendectomy: Yes Hx Cholecystectomy: Yes - ANESTHESIA Hx Anesthesia Reactions: No Hx Malignant Hyperthermia: No Meds Allergies/Adverse Reactions: Allergies Allergy/AdvReac Type Severity Reaction Status Date / Time oxycodone Allergy Severe hallucinati Verified 11/10/18 00:54 on Penicillins Allergy Severe hallucinati Verified 07/15/18 14:43 on PERCODAN Allergy Severe HALLUCINATI Uncoded 11/10/18 00:54 ONS aspirin AdvReac Severe sweating Uncoded 11/10/18 00:54 - Medications Medications: Current Medications Amlodipine Besylate (Norvasc) 5 mg PO DAILY [facility] Last Admin: 11/10/18 10:28 Dose: 5 mg Atorvastatin Calcium (Lipitor) 10 mg PO DIN [facility] Last Admin: 11/09/18 20:52 Dose: 10 mg Sodium Chloride (Sodium Chloride 0.9%) 1,000 mls @ 100 mls/hr IV .Q10H [facility] Last Admin: 11/10/18 06:04 Dose: 100 mls/hr Insulin Detemir (Levemir) 16 unit SC [facility] Last Admin: 11/09/18 22:21 Dose: 16 units Insulin Human Lispro (Humalog Low) 0 units SC [facility]; Protocol Last Admin: 11/10/18 11:23 Dose: 3 units Morphine Sulfate (Morphine) 4 mg IVP Q4 PRN PRN Reason: Pain, severe (8-10) Last Admin: 11/10/18 08:02 Dose: 4 mg Morphine Sulfate (Morphine) 2 mg IVP Q6H PRN PRN Reason: Pain, moderate (4-7) Last Admin: 11/10/18 13:12 Dose: 2 mg Ramipril (Altace) 10 mg PO DAILY [facility] Last Admin: 11/10/18 10:28 Dose: 10 mg Tamsulosin HCl (Flomax) 0.4 mg PO DAILY [facility] Physical Exam - GI/Abdominal Exam Additional comments: ostomy on right - Extremities Exam Additional comments: pain limited examination, no perceptible difference in strength and sensation Results - Vital Signs Recent Vital Signs: Last Vital Signs Temp 97.8 F 11/10/18 06:00 Pulse 60 11/10/18 10:28 Resp 20 11/10/18 06:00 BP 121/79 11/10/18 10:28 Pulse Ox 96 11/10/18 06:00 - Labs Result Diagrams: 11/10/18 06:00 11/10/18 06:00 Labs: Laboratory Results - last 24 hr 11/09/18 11/09/18 11/09/18 15:00 15:00 17:25 WBC 8.0 RBC 4.70 Hgb 14.9 Hct 42.2 MCV 89.8 MCH 31.7 MCHC 35.3 RDW 12.3 Plt Count 145 MPV 10.6 Neut % (Auto) 67.4 Lymph % (Auto) 21.3 L Jay % (Auto) 10.5 H Eos % (Auto) 0.5 L Baso % (Auto) 0.3 Lymph # (Auto) 1.7 Jay # (Auto) 0.8 H Eos # (Auto) 0.0 Baso # (Auto) 0.02 Absolute Neuts (auto) 5.39 Sodium 137 Potassium 4.4 Chloride 102 Carbon Dioxide 29 Anion Gap 11 BUN 16 Creatinine 1.2 Est GFR ( Amer) > 60 Est GFR (Non-Af Amer) 59 POC Glucose (mg/dL) Random Glucose 300 H Hemoglobin A1c Calcium 9.8 Phosphorus Magnesium Total Bilirubin 1.9 H Direct Bilirubin AST 17 D ALT 20 Alkaline Phosphatase 71 Total Protein 7.2 Albumin 4.0 Globulin 3.2 Albumin/Globulin Ratio 1.2 Triglycerides Cholesterol LDL Cholesterol Direct HDL Cholesterol Free T4 TSH 3rd Generation Urine Color Yellow Urine Appearance Clear Urine pH 6.0 Ur Specific [place] 1.025 Urine Protein Negative Urine Glucose (UA) >=1000 Urine Ketones Negative Urine Blood Trace-intact H Urine Nitrate Negative Urine Bilirubin Negative Urine Urobilinogen 0.2 Ur Leukocyte Esterase Negative Urine RBC 10 - 15 H Urine WBC 2 - 5 Ur Epithelial Cells 4 - 5 11/09/18 11/10/18 11/10/18 22:03 01:24 05:02 WBC RBC Hgb Hct MCV MCH MCHC RDW Plt Count MPV Neut % (Auto) Lymph % (Auto) Jay % (Auto) Eos % (Auto) Baso % (Auto) Lymph # (Auto) Jay # (Auto) Eos # (Auto) Baso # (Auto) Absolute Neuts (auto) Sodium Potassium Chloride Carbon Dioxide Anion Gap BUN Creatinine Est GFR ( Amer) Est GFR (Non-Af Amer) POC Glucose (mg/dL) 193 H 334 H 123 H Random Glucose Hemoglobin A1c Calcium Phosphorus Magnesium Total Bilirubin Direct Bilirubin AST ALT Alkaline Phosphatase Total Protein Albumin Globulin Albumin/Globulin Ratio Triglycerides Cholesterol LDL Cholesterol Direct HDL Cholesterol Free T4 TSH 3rd Generation Urine Color Urine Appearance Urine pH Ur Specific [place] Urine Protein Urine Glucose (UA) Urine Ketones Urine Blood Urine Nitrate Urine Bilirubin Urine Urobilinogen Ur Leukocyte Esterase Urine RBC Urine WBC Ur Epithelial Cells 11/10/18 11/10/18 11/10/18 06:00 06:00 06:00 WBC RBC Hgb Hct MCV MCH MCHC RDW Plt Count MPV Neut % (Auto) Lymph % (Auto) Jay % (Auto) Eos % (Auto) Baso % (Auto) Lymph # (Auto) Jay # (Auto) Eos # (Auto) Baso # (Auto) Absolute Neuts (auto) Sodium 141 Potassium 3.7 Chloride 107 Carbon Dioxide 31 Anion Gap 7 L BUN 17 Creatinine 1.2 Est GFR ( Amer) > 60 Est GFR (Non-Af Amer) 59 POC Glucose (mg/dL) Random Glucose 84 Hemoglobin A1c 13.3 H D Calcium 9.2 Phosphorus 3.4 Magnesium 1.8 Total Bilirubin 2.1 H Direct Bilirubin 0.0 AST 17 ALT 20 Alkaline Phosphatase 57 Total Protein 7.2 Albumin 3.7 Globulin 3.5 Albumin/Globulin Ratio 1.1 Triglycerides 126 Cholesterol 177 LDL Cholesterol Direct 97 HDL Cholesterol 46 Free T4 1.25 TSH 3rd Generation 2.60 Urine Color Urine Appearance Urine pH Ur Specific [place] Urine Protein Urine Glucose (UA) Urine Ketones Urine Blood Urine Nitrate Urine Bilirubin Urine Urobilinogen Ur Leukocyte Esterase Urine RBC Urine WBC Ur Epithelial Cells 11/10/18 11/10/18 11/10/18 06:00 07:35 11:11 WBC 7.2 RBC 4.80 Hgb 15.1 Hct 43.6 MCV 90.8 MCH 31.5 MCHC 34.6 RDW 12.6 Plt Count 147 MPV 10.3 Neut % (Auto) 51.9 Lymph % (Auto) 37.6 H Jay % (Auto) 8.7 H Eos % (Auto) 1.5 Baso % (Auto) 0.3 Lymph # (Auto) 2.7 Jay # (Auto) 0.6 Eos # (Auto) 0.1 Baso # (Auto) 0.02 Absolute Neuts (auto) 3.76 Sodium Potassium Chloride Carbon Dioxide Anion Gap BUN Creatinine Est GFR ( Amer) Est GFR (Non-Af Amer) POC Glucose (mg/dL) 107 255 H Random Glucose Hemoglobin A1c Calcium Phosphorus Magnesium Total Bilirubin Direct Bilirubin AST ALT Alkaline Phosphatase Total Protein Albumin Globulin Albumin/Globulin Ratio Triglycerides Cholesterol LDL Cholesterol Direct HDL Cholesterol Free T4 TSH 3rd Generation Urine Color Urine Appearance Urine pH Ur Specific [place] Urine Protein Urine Glucose (UA) Urine Ketones Urine Blood Urine Nitrate Urine Bilirubin Urine Urobilinogen Ur Leukocyte Esterase Urine RBC Urine WBC Ur Epithelial Cells Assessment & Plan - Assessment and Plan (Free Text) Assessment: Pain management will provide A/P
[2018-11-10] MEDS: Lidocaine 5% Patch TD SCH (17:06)
--- NOTE | 2018-11-10 18:26 | US ---
HISTORY: Leg pain and swelling. Evaluate for DVT PHYSICIAN(S): Cyrus Mast MD. TECHNIQUE: Duplex sonography and color-flow Doppler with graded compression were used to evaluate the deep venous systems of both lower extremities. FINDINGS: The visualized deep venous systems of both lower extremities are sonographically normal and compressible. Normal wave forms and augmentation are seen. There is no sonographic evidence for deep venous thrombosis in the visualized segments of both lower extremities. IMPRESSION: No sonographic evidence for deep venous thrombosis in the visualized segments of both lower extremities.
--- NOTE | 2018-11-10 19:09 | CON ---
DATE: 11/10/2018 LOCATION: Presently in room 362, bed 1. HISTORY OF PRESENT ILLNESS: The patient of Dr. Healy is seen for back pain and left leg sciatic pain. The patient has been having pain for several weeks, radiating pain to his left thigh and calf with the x-ray showing arthritis of lumbar spine_ and history of getting worse in the last few days. He had a CAT scan showing the retrolisthesis of his lumbar spine at the area of L3-L4 which is probably causing some discomfort and nerve impingement as well as the arthritis of his L4-L5 area with causing radicular pain damaged left lower extremity. To me he is a candidate for epidural for acute symptoms of sciatica from the left-sided foraminal stenosis and will ask epidural anesthesia doctor to consider an epidural for him. Otherwise, he appears to be tolerating the pain.will then get him out of bed and start physical therapy, so he does not get atrophy; hold off any anticoagulants now. 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 We will epidural just to help his symptoms by giving by a anesthesia doctor in the house setting. Jl Griffin DO [id number]
[2018-11-10] MEDS: Insulin Detemir 100 units/ml Vial (Levemir) SC SCH (21:13)
[2018-11-10] MEDS: Insulin Lispro (humaLOG) MEDIUM Coverage SC SCH (21:14)
[2018-11-10] MEDS ORDERED: DiphenhydrAMINE 50 mg/ml Inj IVP STA (22:06)
[2018-11-11] MEDS: Sodium Chloride 0.9% 1,000 ML IV SCH ×3 (02:30→21:49)
[2018-11-11 06:24] LABS: BASO # 0.01 K/mm3 (0.0-2.0); BASO % 0.1 % (0.0-3.0); EOS # 0.1 (0.0-0.7); EOS % 1.5 % (1.5-5.0); HEMOGLOBIN 14.5 g/dL (14.0-18.0); LYMPH % 26.4 % (22.0-35.0); MEAN CELL VOLUME 91.1 fl (80.0-105.0); MEAN CORPUSCULAR HEMOGLOBIN 31.4 pg (25.0-35.0); MEAN CORPUSCULAR HGB CONC 34.4 g/dl (31.0-37.0); MEAN PLATELET VOLUME 10.6 fl (7.0-11.0); MONO # 0.8 (0.1-0.6); RBC 4.62 10^6/uL (3.5-6.1); RED CELL DISTRIBUTION WIDTH 12.5 % (11.5-14.5); WHITE BLOOD COUNT 7.4 10^3/uL (4.5-11.0)
--- NOTE | 2018-11-11 06:39 | CP.PCM.PN ---
<AalnBrandy - Last Filed: 11/11/18 18:11> Subjective - Date & Time of Evaluation Date of Evaluation: 11/11/18 Time of Evaluation: 07:45 - Subjective Subjective: Pgy3 Medicine progress note for Dr. Healy Patient seen and examined at bedside. As per nursing no acute events overnight. Patient did complain of some pain which subsided with morphine. Patient improved this AM and was resting comfortably. He was able to move and flex his LLE without pain. He reported numbness/tingling improved in LLE. Denied fever, chills, headache, dizziness, chest pain, palpitations, SOB, cough, abd pain, nausea, vomiting, swelling in his legs b/l. Objective - Vital Signs/Intake and Output Vital Signs (last 24 hours): Temp Pulse Resp BP Pulse Ox 99.1 F 74 20 128/68 95 11/10/18 17:21 11/10/18 17:21 11/10/18 17:21 11/10/18 17:21 11/10/18 17:21 Intake and Output: 11/10/18 11/11/18 18:59 06:59 Intake Total 1200 Balance 1200 - Medications Medications: Current Medications Amlodipine Besylate (Norvasc) 5 mg PO DAILY [facility] Last Admin: 11/10/18 10:28 Dose: 5 mg Atorvastatin Calcium (Lipitor) 10 mg PO DIN [facility] Last Admin: 11/10/18 17:07 Dose: 10 mg Cholecalciferol (Vitamin D) 2,000 intlu PO DAILY [facility] Sodium Chloride (Sodium Chloride 0.9%) 1,000 mls @ 100 mls/hr IV .Q10H [facility] Last Admin: 11/11/18 02:30 Dose: Not Given Insulin Detemir (Levemir) 16 unit SC HS [facility] Last Admin: 11/10/18 21:13 Dose: 16 units Insulin Human Lispro (Humalog Med) 0 units SC ACHS [facility]; Protocol Last Admin: 11/10/18 21:14 Dose: 2 units Lidocaine (Lidoderm) 1 ea TD DAILY [facility] Last Admin: 11/10/18 17:06 Dose: 1 ea Morphine Sulfate (Morphine) 4 mg IVP Q4 PRN PRN Reason: Pain, severe (8-10) Last Admin: 11/10/18 08:02 Dose: 4 mg Morphine Sulfate (Morphine) 2 mg IVP Q6H PRN PRN Reason: Pain, moderate (4-7) Last Admin: 11/10/18 23:18 Dose: 2 mg Pregabalin (Lyrica) 50 mg PO BID [facility] Last Admin: 11/10/18 17:06 Dose: 50 mg Ramipril (Altace) 10 mg PO DAILY [facility] Last Admin: 11/10/18 10:28 Dose: 10 mg Tamsulosin HCl (Flomax) 0.4 mg PO DAILY [facility] - Labs Labs: 11/10/18 06:00 11/10/18 06:00 - Constitutional Appears: Non-toxic, No Acute Distress - Head Exam Head Exam: ATRAUMATIC, NORMAL INSPECTION, NORMOCEPHALIC - Eye Exam Eye Exam: EOMI, Normal appearance. absent: Conjunctival injection, Scleral icterus Pupil Exam: NORMAL ACCOMODATION - ENT Exam ENT Exam: Mucous Membranes Moist - Neck Exam Neck Exam: Full ROM. absent: Lymphadenopathy - Respiratory Exam Respiratory Exam: Clear to Ausculation Bilateral. absent: Accessory Muscle Use, Rales, Rhonchi, Wheezes, Respiratory Distress - Cardiovascular Exam Cardiovascular Exam: +S1, +S2 - GI/Abdominal Exam GI & Abdominal Exam: Soft, Normal Bowel Sounds. absent: Tenderness Additional comments: ostomy bag with stool noted- ostomy is patent and pink - Extremities Exam Extremities Exam: Normal Capillary Refill, Normal Inspection. absent: Pedal Edema - Neurological Exam Neurological Exam: Alert, Awake, Oriented x3 - Psychiatric Exam Psychiatric exam: Normal Affect, Normal Mood - Skin Skin Exam: Dry, Intact, Normal Color, Warm Assessment and Plan - Assessment and Plan (Free Text) Assessment: - Severe central canal stenosis and b/l inferior foraminal encroachment - Gait dysfunction secondary to pain - 8mm nonobstructing L renal calculus - Uncontrolled DM - BPH - HTN - HLD - UC s/p colectomy - Ostomy management - Pain control Plan: Patient's imaging, vitals, and blood work reviewed. CT lumbar revealed slight retrolisthesis at L3-4 with disc bulge and facet and ligament hypertrophy contributing to central canal stenosis. L4-5 calcified disc herniation with facet and ligament hypertrophy contribute to severe central canal stenosis and b/l inferior foraminal encroachment. L5-S1 disc bulge with anterior epidural fat indentation. Neuro reccs appreciated- recommend PT with lumbosacral stretching, therapeutic exercises, TENS unit as outpatient. Patient on Lyrica 50bid for neuroapthy and lidoderm patch. Anesthesia reccs appreciated. Epidural recom mended. Dr. Oliveros consulted. Vitamin D low- patient started on PO vit D. Continue pain management with Morphine 4q4 severe pain and 2q6 moderate pain; patient also on Ibuprofen bid and Flexeril bid. As patient complained of b/l calf pain, LE dopplers were ordered which were unremarkable. PT consulted for gait dysfunction. As patient complained of LLQ abdominal pain, CT Abd/pelvis ordered which revealed 8mm nonobstructing L renal calculus which had decreased in size with a dilated left extrarenal pelvis. Patient on fluids and flomax and to strain urine. Patient's UA findings can be explained by renal calculus. RLQ ostomy noted on CT Abd/pelvis with no obstruction. Patient's blood sugars unco ntrolled at this time. Negative ketones on U/A. HgbA1c 13.3. Patient on accuchecks achs and RISS medium and Levemir 20u hs. Will monitor and adjust. Patient also has family educator on board. Patient's history of BPH confirmed with CT abd/pelvis findings of asymmetrically enlarged prostate gland with capsular bulging on the right. Flomax on board. Patient's home Norvasc 5qd and Ramipril 10qd ordered for HTN; will maintain normotension. Continued home Lipitor 10hs with FLP wnl. Continue HHD. Will monitor patient closely and appreciate Ortho and Neuro reccs. Discussed with Dr. Niraj Phillips PGY3 <Herrera Healy S - Last Filed: 11/11/18 21:56> Objective - Vital Signs/Intake and Output Vital Signs (last 24 hours): Temp Pulse Resp BP Pulse Ox 98.2 F 72 20 105/67 94 L 11/11/18 16:25 11/11/18 16:25 11/11/18 16:25 11/11/18 16:25 11/11/18 16:25 Intake and Output: 11/11/18 11/12/18 18:59 06:59 Intake Total 940 Output Total 1200 Balance -260 - Medications Medications: Current Medications Amlodipine Besylate (Norvasc) 5 mg PO DAILY [facility] Last Admin: 11/11/18 09:43 Dose: 5 mg Atorvastatin Calcium (Lipitor) 10 mg PO DIN [facility] Last Admin: 11/11/18 17:14 Dose: 10 mg Cholecalciferol (Vitamin D) 2,000 intlu PO DAILY [facility] Last Admin: 11/11/18 09:42 Dose: 2,000 intlu Cyclobenzaprine HCl (Flexeril) 5 mg PO BID [facility] Last Admin: 11/11/18 17:14 Dose: 5 mg Sodium Chloride (Sodium Chloride 0.9%) 1,000 mls @ 100 mls/hr IV .Q10H [facility] Last Admin: 11/11/18 21:49 Dose: 100 mls/hr Ibuprofen (Motrin Tab) 600 mg PO BID [facility] Last Admin: 11/11/18 17:14 Dose: 600 mg Insulin Detemir (Levemir) 20 unit SC HS [facility] Last Admin: 11/11/18 21:45 Dose: 20 units Insulin Human Lispro (Humalog Med) 0 units SC [facility]; Protocol Last Admin: 11/11/18 17:14 Dose: 1 units Lidocaine (Lidoderm) 1 ea TD DAILY [facility] Last Admin: 11/11/18 09:42 Dose: 1 ea Morphine Sulfate (Morphine) 4 mg IVP Q4 PRN PRN Reason: Pain, severe (8-10) Last Admin: 11/10/18 08:02 Dose: 4 mg Morphine Sulfate (Morphine) 2 mg IVP Q6H PRN PRN Reason: Pain, moderate (4-7) Last Admin: 11/11/18 19:55 Dose: 2 mg Pregabalin (Lyrica) 50 mg PO BID [facility] Last Admin: 11/11/18 17:14 Dose: 50 mg Ramipril (Altace) 10 mg PO DAILY [facility] Last Admin: 11/11/18 09:45 Dose: 10 mg Tamsulosin HCl (Flomax) 0.4 mg PO DAILY [facility] Last Admin: 11/11/18 11:47 Dose: Not Given - Labs Labs: 11/11/18 06:00 11/11/18 06:00 Assessment and Plan - Assessment and Plan (Free Text) Plan: Pt seen and examined by me. I have reviewed the note of the medical attendant and I agree with it. I have discussed the assessment and plan with the resident. I have reviewed the medications and the last labs.Pt with acute back pain due to L3-L4 disc herniation. Pt may benefit from epidural. Pt is on Lyria and Lidoderm patch. Pt is on Morphine for pain control. Pain is better. I started the pt on Ibuprofen and Flexeril to help with his pain. PT evaluation. May benefit from epidural and will get consult.
[2018-11-11 07:13] LABS: ALBUMIN 3.3 g/dL (3.0-4.8); ALT/SGPT 24 U/L (7-56); AST/SGOT 19 U/L (17-59); BLOOD UREA NITROGEN 16 mg/dL (7-21); CALCIUM 8.7 mg/dL (8.4-10.5); GFR NON-AFRICAN AMERICAN > 60
--- NOTE | 2018-11-11 08:03 | CON ---
DATE: 11/10/2018 NEUROLOGY CONSULTATION CHIEF COMPLAINT: Low back pain. HISTORY OF PRESENT ILLNESS: A 73-year-old man history of type 2 diabetes mellitus, BPH, ulcerative colitis, status post colectomy, hypertension, hyperlipidemia, nephrolithiasis, came with acute sharp left extremity pain radiating to left lower buttocks down to the left back of the calf down to the foot with paresthesia aggravated by prolonged positions or walking improves with rest. His knees are flexed to his chest which does not provide any pain. He also has paresthesias of the extremities. He does complain of polyuria, polydipsia. He was found to have an A1c of 13.3 indicating poorly controlled diabetes. He had an CAT scan of the lumbosacral spine which showed slight left lateral listhesis at L3-L4 with disc bulging, facet ligament hypertrophy, 103 into central canal stenosis. There is an L4-L5 calcified central disc herniation causing severe central canal stenosis and interior foraminal encroachment. L5-S1 disc bulge and multilevel facet arthropathy. He was given morphine which has helped with the pain. He will benefit from physical therapy and probably Lyrica for neuropathic relief. PAST MEDICAL HISTORY: As above. SOCIAL HISTORY: No illicit drug use, smoking or ETOH abuse. FAMILY HISTORY: Noncontributory. REVIEW OF SYSTEMS: A 14-point review of systems is negative except per the HPI. ALLERGIES: OXYCODONE AND PENICILLIN. PHYSICAL EXAMINATION VITAL SIGNS: Temperature 97.8, pulse rate 60, blood pressure 121/79, respiratory rate 20, oxygen saturation 96% room air. GENERAL: The patient seen up in bed, no acute distress. HEENT: Atraumatic and normocephalic. PERRLA. Extraocular muscles intact. NECK: Supple. No JVD. No adenopathy noted. LUNGS: Clear to auscultation. No adventitious sounds. HEART: S1 and S2. Normal rate and rhythm. No murmurs, rubs, or gallops. ABDOMEN: Soft, nontender, and nondistended. Bowel sounds are present. EXTREMITIES: No clubbing. No cyanosis. Peripheral pulses are 2+ felt bilaterally. NEUROLOGIC: The patient is alert and oriented to person, place, and month and year. Speech is fluent without errors. Cranial nerves II through XII are intact. Motor exam; moves all extremities. Toes are downgoing bilaterally. Sensory exam; Decreased light touch and pinprick up to the calves bilaterally. Decreased vibration at the toes. DTRs are 2+ throughout and 1 at both knees and ankles. Coordination, [id number] is intact. No dysmetria noted. MUSCULOSKELETAL: Has lumbosacral tightness in lumbosacral area on palpation. LABORATORY DATA: Sodium 141, potassium 3.7, chloride of 107, carbon dioxide 31, BUN of 17, creatinine 1.2, random glucose of 128, A1c 13.3. ASSESSMENT AND PLAN: 1. This is a 73-year-old man history of type 2 diabetes mellitus uncontrolled, benign prostatic hypertrophy, ulcerative colitis, status post colectomy, hypertension, hyperlipidemia, nephrolithiasis, present with acute lumbosacral pain on the left radiating down to left leg sharp in nature aggravated with prolonged position . He also has underlying peripheral neuropathy on neurologic examination. He has gait dysfunction secondary to pain. At this time, I have recommend physical therapy for lumbosacral stretching, therapeutic exercises, ultrasound therapy, TENS unit as outpatient. 2. We will place on Lyrica 50 mg p.o. b.i.d. for neuropathic relief and try to avoid as much as opioids as possible. 3. Lidoderm patch to the lumbosacral area. 4. Pain management consult, possible epidural injection into the lumbosacral area at L4-L5. 5. Diabetic control given his uncontrolled diabetes with A1c of 13.3 and can follow as an outpatient. Thank you for this consult. Leonidas Washburn MD
[2018-11-11] MEDS: Insulin Lispro (humaLOG) MEDIUM Coverage SC SCH ×4 (08:18→22:00)
[2018-11-11] MEDS: Morphine 2 mg/ml ISec IVP PRN ×2 (08:19→19:55)
[2018-11-11] MEDS: Cholecalciferol 1,000 INTLU TAB PO SCH (09:42)
[2018-11-11] MEDS: Lidocaine 5% Patch TD SCH (09:42)
[2018-11-11] MEDS ORDERED: DiphenhydrAMINE 50 mg/ml Inj IVP STA (21:22)
[2018-11-11] MEDS: Insulin Detemir 100 units/ml Vial (Levemir) SC SCH (21:45)
[2018-11-12 06:19] LABS: BASO # 0.01 K/mm3 (0.0-2.0); BASO % 0.2 % (0.0-3.0); EOS # 0.1 (0.0-0.7); EOS % 2.6 % (1.5-5.0); HEMOGLOBIN 13.2 g/dL (14.0-18.0); LYMPH # 1.9 (1.2-3.4); LYMPH % 37.3 % (22.0-35.0); MEAN CELL VOLUME 90.8 fl (80.0-105.0); MEAN CORPUSCULAR HEMOGLOBIN 31.8 pg (25.0-35.0); MEAN PLATELET VOLUME 10.3 fl (7.0-11.0); MONO # 0.5 (0.1-0.6); RBC 4.15 10^6/uL (3.5-6.1); RED CELL DISTRIBUTION WIDTH 12.3 % (11.5-14.5); WHITE BLOOD COUNT 5.1 10^3/uL (4.5-11.0)
[2018-11-12 06:52] LABS: ALB/GLOB RATIO 0.9 (1.1-1.8); ALBUMIN 2.8 g/dL (3.0-4.8); ALT/SGPT 18 U/L (7-56); AST/SGOT 19 U/L (17-59); BLOOD UREA NITROGEN 20 mg/dL (7-21); CALCIUM 8.3 mg/dL (8.4-10.5); GFR NON-AFRICAN AMERICAN > 60
[2018-11-12] MEDS: Lidocaine 5% Patch TD SCH (09:16)
[2018-11-12] MEDS: Insulin Lispro (humaLOG) MEDIUM Coverage SC SCH ×3 (09:16→17:13)
[2018-11-12] MEDS: Cholecalciferol 1,000 INTLU TAB PO SCH (09:18)
[2018-11-12] MEDS ORDERED: oxyCODONE 5 mg Immediate Release Tab PO PRN (09:33)
[2018-11-12 11:25] LABS: URINE APPEARANCE CLEAR (CLEAR); URINE BILIRUBIN NEGATIVE (NEGATIVE); URINE BLOOD TRACE-INTACT (NEGATIVE); URINE COLOR YELLOW (YELLOW); URINE GLUCOSE (UA) 500 mg/dL (NEGATIVE); URINE LEUKOCYTE ESTERASE NEGATIVE Leu/uL (NEGATIVE); URINE PROTEIN NEGATIVE mg/dL (<30 mg/dL); URINE UROBILINOGEN 0.2 E.U./dL (<1 E.U./dL)
[2018-11-12 11:28] LABS: URINE WBC 0 - 2 /hpf (0-6)
[2018-11-12 11:29] LABS: URINE BACTERIA SMALL /hpf
--- NOTE | 2018-11-12 15:58 | CP.PCM.PN ---
<Bhupendra Phillipsima - Last Filed: 11/12/18 16:49> Subjective - Date & Time of Evaluation Date of Evaluation: 11/12/18 Time of Evaluation: 07:05 - Subjective Subjective: Pgy3 Medicine progress note for Dr. Healy Patient seen and examined at bedside. This AM he reported the pain down his LLE had improved however he was having urinary discomfort and burning. Patient reports he has had this for a while. He also complained of some left flank pain. Denied fever, chills, headache, dizziness, chest pain, SOB, cough, nausea, vomiting, change in ostomy contents, swelling in his legs b/l. Patient did complain that he felt light headed when trying to work with PT the day prior. Objective - Vital Signs/Intake and Output Vital Signs (last 24 hours): Temp Pulse Resp BP Pulse Ox 97.4 F L 60 20 132/74 97 11/12/18 07:53 11/12/18 09:17 11/12/18 07:53 11/12/18 09:17 11/12/18 07:53 Intake and Output: 11/12/18 11/12/18 06:59 18:59 Intake Total 940 Output Total 1750 Balance -810 - Medications Medications: Current Medications Amlodipine Besylate (Norvasc) 5 mg PO DAILY [facility] Last Admin: 11/12/18 09:17 Dose: 5 mg Atorvastatin Calcium (Lipitor) 10 mg PO DIN [facility] Last Admin: 11/11/18 17:14 Dose: 10 mg Cholecalciferol (Vitamin D) 2,000 intlu PO DAILY [facility] Last Admin: 11/12/18 09:18 Dose: 2,000 intlu Cyclobenzaprine HCl (Flexeril) 5 mg PO BID [facility] Last Admin: 11/12/18 09:15 Dose: 5 mg Ibuprofen (Motrin Tab) 600 mg PO BID [facility] Last Admin: 11/12/18 09:17 Dose: 600 mg Insulin Detemir (Levemir) 20 unit SC HS [facility] Last Admin: 11/11/18 21:45 Dose: 20 units Insulin Human Lispro (Humalog Med) 0 units SC ACHS [facility]; Protocol Last Admin: 11/12/18 09:16 Dose: Not Given Lidocaine (Lidoderm) 1 ea TD DAILY [facility] Last Admin: 11/12/18 09:16 Dose: 1 ea Oxycodone HCl (Oxycodone Immediate Release Tab) 5 mg PO Q4H PRN PRN Reason: Pain, moderate (4-7) Pregabalin (Lyrica) 50 mg PO BID [facility] Last Admin: 11/12/18 09:16 Dose: 50 mg Ramipril (Altace) 10 mg PO DAILY [facility] Last Admin: 11/12/18 09:15 Dose: 10 mg Tamsulosin HCl (Flomax) 0.4 mg PO DAILY [facility] Last Admin: 11/12/18 09:16 Dose: 0.4 mg - Labs Labs: 11/12/18 05:30 11/12/18 05:30 - Additional Findings Additional findings: - Constitutional Appears: Non-toxic, No Acute Distress - Head Exam Head Exam: ATRAUMATIC, NORMAL INSPECTION, NORMOCEPHALIC - Eye Exam Eye Exam: EOMI, Normal appearance. absent: Conjunctival injection, Scleral icterus Pupil Exam: NORMAL ACCOMODATION - ENT Exam ENT Exam: Mucous Membranes Moist - Neck Exam Neck Exam: Full ROM. absent: Lymphadenopathy - Respiratory Exam Respiratory Exam: Clear to Ausculation Bilateral. absent: Accessory Muscle Use, Rales, Rhonchi, Wheezes, Respiratory Distress - Cardiovascular Exam Cardiovascular Exam: +S1, +S2 - GI/Abdominal Exam GI & Abdominal Exam: Soft, Normal Bowel Sounds. absent: Tenderness Additional comments: ostomy bag with stool noted- ostomy is patent and pink - Extremities Exam Extremities Exam: Normal Capillary Refill, Normal Inspection. absent: Pedal Edema - Neurological Exam Neurological Exam: Alert, Awake, Oriented x3 - Psychiatric Exam Psychiatric exam: Normal Affect, Normal Mood - Skin Skin Exam: Dry, Intact, Normal Color, Warm Assessment and Plan - Assessment and Plan (Free Text) Assessment: - Severe central canal stenosis and b/l inferior foraminal encroachment - Gait dysfunction secondary to pain - 8mm nonobstructing L renal calculus - Uncontrolled DM - Orthostatic hypotension - BPH - HTN - HLD - UC s/p colectomy - Ostomy management - Pain control Plan: Patient's imaging, vitals, and blood work reviewed. CT lumbar spine reviewed. Neuro reccs appreciated- recommend Physical therapy with lumbosacral stretching, therapeutic exercises, TENS unit as outpatient. Patient on Lyrica 50bid for neuroapthy and lidoderm patch. Anesthesia and pain management reccs appreciated. Will treat conservatively at this time. Vitamin D low- patient started on PO vit D. Morphine d/c and patient on Oxycodone 5q4, Ibuprofen bid and Flexeril bid. LE dopplers unremarkable. PT consulted for gait dysfunction and noted orthostatic vital signs. Patient advised to wait prior to changing positions and continue hydration. CT Abd/pelvis reviewed. Patient on fluids and flomax and told to strain urine. Patient's UA findings can be explained by renal calculus. Urinary discomfort also likely secondary to calculus as U/A unremarkable for infection; f/u urine c&s. Urology consulted. RLQ ostomy noted on CT Abd/pelvis with no obstruction. Patient's blood sugars uncontrolled at this time. Negative ketones on U/A. HgbA1c 13.3. Patient on accuchecks achs and RISS medium and Levemir 20u hs. Will monitor and adjust. Patient also has development educator on board. Patient's history of BPH confirmed with CT abd/pelvis findings of asymmetrically enlarged prostate gland with capsular bulging on the right. Flomax on board. Patient's home Norvasc 5qd and Ramipril 10qd ordered for HTN; will maintain normotension. Continued home Lipitor 10hs with FLP wnl. Continue HHD. Will monitor patient closely. Discussed with Dr. Niraj Phillips PGY3 <Herrera Healy S - Last Filed: 11/12/18 19:15> Objective - Vital Signs/Intake and Output Vital Signs (last 24 hours): Temp Pulse Resp BP Pulse Ox 98.2 F 82 18 128/82 99 11/12/18 16:38 11/12/18 16:38 11/12/18 16:38 11/12/18 16:38 11/12/18 16:38 - Medications Medications: Current Medications Amlodipine Besylate (Norvasc) 5 mg PO DAILY [facility] Last Admin: 11/12/18 09:17 Dose: 5 mg Atorvastatin Calcium (Lipitor) 10 mg PO DIN [facility] Last Admin: 11/12/18 17:18 Dose: 10 mg Cholecalciferol (Vitamin D) 2,000 intlu PO DAILY [facility] Last Admin: 11/12/18 09:18 Dose: 2,000 intlu Cyclobenzaprine HCl (Flexeril) 5 mg PO BID [facility] Last Admin: 11/12/18 17:12 Dose: 5 mg Ibuprofen (Motrin Tab) 600 mg PO BID [facility] Last Admin: 11/12/18 17:19 Dose: 600 mg Insulin Detemir (Levemir) 20 unit SC HS [facility] Last Admin: 11/11/18 21:45 Dose: 20 units Insulin Human Lispro (Humalog Med) 0 units SC ACHS [facility]; Protocol Last Admin: 11/12/18 17:13 Dose: 5 units Lidocaine (Lidoderm) 1 ea TD DAILY [facility] Last Admin: 11/12/18 09:16 Dose: 1 ea Oxycodone HCl (Oxycodone Immediate Release Tab) 5 mg PO Q4H PRN PRN Reason: Pain, moderate (4-7) Pregabalin (Lyrica) 50 mg PO BID [facility] Last Admin: 11/12/18 17:18 Dose: 50 mg Ramipril (Altace) 10 mg PO DAILY [facility] Last Admin: 11/12/18 09:15 Dose: 10 mg Tamsulosin HCl (Flomax) 0.4 mg PO DAILY [facility] Last Admin: 11/12/18 09:16 Dose: 0.4 mg - Labs Labs: 11/12/18 05:30 11/12/18 05:30 Assessment and Plan - Assessment and Plan (Free Text) Plan: Pt seen and examined by me. I have reviewed the note of the medical accounts receivable specialist and I agree with it. I have discussed the assessment and plan with the resident. I have reviewed the medications and the last labs. Pt with back pain that is improving. Pt is willing to go to TCU. D/C Morphine. On Oxycodone for pain. On Levemir for DM-2. Pt is on Norvasc and Ramipril for HTN. Pain is improving. L hip pain has resolved.
[2018-11-12] MEDS: Insulin Detemir 100 units/ml Vial (Levemir) SC SCH (21:04)
[2018-11-12] MEDS ORDERED: DiphenhydrAMINE 50 mg/ml Inj IVP STA (22:57)
[2018-11-12] MEDS ORDERED: Morphine 2 mg/ml ISec IVP ONE (22:57)
--- NOTE | 2018-11-12 23:45 | CON ---
DATE OF CONSULTATION: 11/12/2018 GENITOURINARY CONSULTATION CHIEF COMPLAINT: Left lower extremity pain. HISTORY OF PRESENT ILLNESS: This is a 72-year-old male, who is well known to me. The patient is extremely noncompliant regarding treatment of recurrent nephrolithiasis. He is now admitted a few days ago with left lower extremity pain felt to be neurologic in origin. As far as urologic issues, the patient is voiding without difficulty, mild urinary frequency, but no dysuria or gross hematuria. He has no fever or chills. The patient has a history of ulcerative colitis. He had his colon removed many years ago and has an ileostomy. Due to the ileostomy and malabsorption issues as well as dehydration, the patient has multiple recurrences of uric acid stones. He has been treated with oral Urocit-K; however, the patient stops the medicine on his own and then thus forms recurrent stones. consultation is requested regarding renal calculi. PAST MEDICAL HISTORY: Positive for ulcerative colitis status post colectomy many years ago. Positive for recurrent nephrolithiasis, diabetes, BPH, hypertension, hyperlipidemia. MEDICATIONS: Currently include Altace, Flexeril, Flomax, insulin coverage, Levemir, Lidoderm, Lipitor, Lyrica, Motrin, Norvasc, Percocet, vitamin D. ALLERGIES: ALLERGIC TO OXYCODONE, PENICILLINS, PERCODAN, AND ASPIRIN. FAMILY HISTORY: Noncontributory for this admission. SOCIAL HISTORY: No smoking or EtOH use. LABORATORY DATA: On laboratory exam, the patient's urine is positive for glucose, 1 to 3 rbc's, 0 to 2 wbc's, negative for nitrites. PHYSICAL EXAMINATION: VITAL SIGNS: He is afebrile since admission, temperature of 98.2, pulse of 82, BP 120/82. On radiologic exam, the patient had a CT scan of the abdomen and pelvis, which showed a decrease in the size of a nonobstructing calculus in the left renal pelvis. There is some dilatation of an extrarenal pelvis on the left, bladder is unremarkable. He has an enlarged prostate gland. The patient had a CT of the lumbar sacral spine, which showed retrolisthesis at L3-L4 with decibels and facet and ligamentous hypertrophy with central canal stenosis at L4-L5 calcified disc herniation with facet and ligament hypertrophy, severe central canal stenosis and bilateral inferior foraminal encroachment at L5-S1 disc bulge with anterior epidural fat indentation, multi-facet arthropathy. IMPRESSION AND PLAN: The patient's lower extremity pain appears to be neurologic in origin, from likely disc disease and spinal stenosis. We would continue current treatment for that. As for his kidney stone, as the stones are made of uric acid, I would recommend alkalinization of his urine. The last urine pH was 6; however, the patient has not been receiving his Urocit-K while he is in the hospital, possibly we can add bicarbonate to his IV fluids, and I will discuss this with Dr. Healy. The patient has no signs or symptoms of urosepsis and stone does not appear to be obstructive. I would plan on conservative treatment at this time with urinary alkalinization, hydration, and analgesics as needed for his spinal stenosis, which should cover any pain from the stone. The patient has had multiple stents. He does not tolerate them well, and I would try to avoid this unless absolutely necessary. I will discuss urinary alkalinization with Dr. Healy and follow the patient with you. Romain Gu MD
[2018-11-13] MEDS: Insulin Lispro (humaLOG) MEDIUM Coverage SC SCH ×5 (00:31→21:28)
[2018-11-13] MEDS ORDERED: oxyCODONE 10 mg Immediate Release Tab PO PRN (07:37)
[2018-11-13 08:03] LABS: BASO # 0.01 K/mm3 (0.0-2.0); BASO % 0.2 % (0.0-3.0); EOS # 0.2 (0.0-0.7); EOS % 2.9 % (1.5-5.0); HEMOGLOBIN 13.7 g/dL (14.0-18.0); LYMPH # 1.9 (1.2-3.4); LYMPH % 36.3 % (22.0-35.0); MEAN CELL VOLUME 91.3 fl (80.0-105.0); MEAN CORPUSCULAR HEMOGLOBIN 31.4 pg (25.0-35.0); MEAN CORPUSCULAR HGB CONC 34.3 g/dl (31.0-37.0); MEAN PLATELET VOLUME 10.8 fl (7.0-11.0); MONO # 0.4 (0.1-0.6); MONO % 6.7 % (1.0-6.0); RBC 4.37 10^6/uL (3.5-6.1); RED CELL DISTRIBUTION WIDTH 12.5 % (11.5-14.5); WHITE BLOOD COUNT 5.3 10^3/uL (4.5-11.0)
[2018-11-13 08:32] LABS: ALB/GLOB RATIO 0.9 (1.1-1.8); ALT/SGPT 20 U/L (7-56); AST/SGOT 20 U/L (17-59); BLOOD UREA NITROGEN 20 mg/dL (7-21); CALCIUM 8.5 mg/dL (8.4-10.5); GFR NON-AFRICAN AMERICAN > 60
[2018-11-13] MEDS: Lidocaine 5% Patch TD SCH (09:21)
[2018-11-13] MEDS: Cholecalciferol 1,000 INTLU TAB PO SCH (09:21)
--- NOTE | 2018-11-13 10:26 | PN ---
DATE: 11/13/2018 SUBJECTIVE: The patient has no complaints of any chest pain, no shortness of breath, no headaches, no dizziness. The patient says he does have pain in the back. The oxycodone had not helped him much. He says it is about 5 to 6 out of 10 at the end. PHYSICAL EXAMINATION: VITAL SIGNS: Temperature is 98.2, pulse of 82, blood pressure 128/82, and respirations 18. GENERAL: The patient is lying in bed, flat, comfortable. HEENT: No oral lesion. Anicteric sclerae. Moist mucosa. NECK: No JVD, adenopathy, or thyromegaly. CARDIOVASCULAR: S1 and S2, regular. No murmurs, rubs, or gallops. LUNGS: Clear to auscultation bilaterally. No wheeze, rales, or rhonchi. ABDOMEN: Bowel sounds are positive, soft, nontender and nondistended. Positive for ileostomy. EXTREMITIES: no cyanosis, clubbing or edema. LABORATORIES: White count of 5.1, hemoglobin 13.2, creatinine is 1.1, this is blood work from yesterday. ASSESSMENT: 1. Acute on chronic back pain secondary to L3-L4 disk herniation. 2. Spinal stenosis. 3. L5-S1 disk herniation. 4. Nonobstructing left nephrolithiasis, 8 mm. 5. Gait instability and dysfunction. 6. Diabetes type 2. 7. Benign prostatic hyperplasia. 8. Hypertension. 9. Dyslipidemia. 10. Ulcerative colitis, status post colectomy with ileostomy. PLAN: The patient is currently receiving ramipril for hypertension. He is on Flexeril as a muscle relaxer. The patient is on Levemir for diabetes. He is receiving Lipitor for dyslipidemia. He is on Lyrica, this will be continued. He is on Norvasc for his hypertension. He is on Percocet. I have increased this to 10 mg. He is on a heart healthy diet. Herrera Healy MD
[2018-11-13] MEDS: Insulin Detemir 100 units/ml Vial (Levemir) SC SCH (21:29)
[2018-11-14] MEDS: Insulin Lispro (humaLOG) MEDIUM Coverage SC SCH ×4 (08:23→21:54)
[2018-11-14] MEDS: Lidocaine 5% Patch TD SCH (09:32)
[2018-11-14] MEDS: Cholecalciferol 1,000 INTLU TAB PO SCH (09:32)
--- NOTE | 2018-11-14 19:47 | PN ---
DATE: 11/14/2018 SUBJECTIVE: The patient is a 73-year-old, seen and examined, doing well. He states he feels lot better. His left foot was hurting. He was unable to walk. He was unable to stand up. He wishes to go home and does not want to go TCU. PHYSICAL EXAMINATION: VITAL SIGNS: He is afebrile. Pulse 61, respirations 20 and blood pressure 130/80. LUNGS: Bilateral fair airflow. No rhonchi or crackle. HEART: S1 and S2, audible. ABDOMEN: Soft and nontender. No rebound. No guarding. NEUROLOGIC: The patient is awake, alert, oriented and able to communicate, ambulates, but his gait is unstable. He took a walk with me, but I found him unstable without any assisted device. LABORATORY DATA: Blood sugar is 169. Urine cultures are negative. ASSESSMENT: 1. Lumbosacral radiculopathy. 2. Deconditioning difficulty walking. 3. Spinal stenosis. 4. Nephrolithiasis, nonobstructive. 5. Mcx-czyecek-naorxeizi diabetes. 6. Hyperlipidemia. 7. Hypertension. 8. Benign prostatic hyperplasia. PLAN: Currently, the patient is on Ramipril and muscle relaxer. He is getting Flomax. We will continue on his current insulin regimen. He is on statin. He is on Lyrica. The patient is on high dose NSAID. We will add Protonix for GI prophylaxis. Dr. Healy will follow up the patient and make disposition plan in a.m. Daquan Lui MD
[2018-11-14] MEDS ORDERED: Aritificial Tears (15ml) OD PRN (20:50)
[2018-11-14] MEDS: Insulin Detemir 100 units/ml Vial (Levemir) SC SCH (21:53)
[2018-11-15] MEDS ORDERED: Pantoprazole 40 mg EC Tab PO SCH (06:30)
[2018-11-15] MEDS: Insulin Lispro (humaLOG) MEDIUM Coverage SC SCH ×2 (08:09→11:36)
[2018-11-15 08:46] VITALS: BP 127/83; PULSE 62; RESP 19; TEMP 98; O2SAT 97
--- NOTE | 2018-11-15 10:10 | CP.PCM.DIS ---
<Brandy Phillips - Last Filed: 11/15/18 14:52> Provider - Provider Date of Admission: 11/09/18 18:25 Attending physician: Herrera Healy MD Primary care physician: Brenna Rodriguez MD Consults: 11/09/18 20:13 Consult [Physician Consult] Routine Comment: Consulting Provider: Jl Griffin Consulting Physician: Jl Griffin Reason for Consult: hip pain 11/09/18 23:35 Diabetic Education Referral Routine Comment: Physician Instructions: Reason For Exam: hx diabetes 11/09/18 23:52 Social Work Referral Routine Comment: difficulty ambulating due to pain Physician Instructions: discharge planning Reason For Exam: was living independently alone 11/10/18 09:19 Neurology Consult Routine Comment: Consulting Provider: Leonidas Washburn Consulting Physician: Leonidas Washburn Reason for Consult: lt sided sciatica 11/12/18 10:23 Physician Consult Routine Comment: Consulting Provider: Romain Gu Consulting Physician: Romain Gu Reason for Consult: 8mm nonobstructing L renal calculus 11/12/18 10:24 TCU [Evaluation for TRCU] Routine Comment: Physician Instructions: Reason For Exam: gait dysfunction and pain; requires PT Time Spent in preparation of Discharge (in minutes): 45 Hospital Course - Lab Results Lab Results: Micro Results 11/12/18 11:00 Urine Random Urine Culture - Final No Growth (<1,000 CFU/ML) Most Recent Lab Values WBC 5.3 10^3/uL (4.5-11.0) 11/13/18 07:51 RBC 4.37 10^6/uL (3.5-6.1) 11/13/18 07:51 Hgb 13.7 g/dL (14.0-18.0) L 11/13/18 07:51 Hct 39.9 % (42.0-52.0) L 11/13/18 07:51 MCV 91.3 fl (80.0-105.0) 11/13/18 07:51 MCH 31.4 pg (25.0-35.0) 11/13/18 07:51 MCHC 34.3 g/dl (31.0-37.0) 11/13/18 07:51 RDW 12.5 % (11.5-14.5) 11/13/18 07:51 Plt Count 122 10^3/uL (120.0-450.0) 11/13/18 07:51 MPV 10.8 fl (7.0-11.0) 11/13/18 07:51 Neut % (Auto) 53.9 % (50.0-68.0) 11/13/18 07:51 Lymph % (Auto) 36.3 % (22.0-35.0) H 11/13/18 07:51 [place] % (Auto) 6.7 % (1.0-6.0) H 11/13/18 07:51 Eos % (Auto) 2.9 % (1.5-5.0) 11/13/18 07:51 Baso % (Auto) 0.2 % (0.0-3.0) 11/13/18 07:51 Lymph # (Auto) 1.9 (1.2-3.4) 11/13/18 07:51 [place] # (Auto) 0.4 (0.1-0.6) 11/13/18 07:51 Eos # (Auto) 0.2 (0.0-0.7) 11/13/18 07:51 Baso # (Auto) 0.01 K/mm3 (0.0-2.0) 11/13/18 07:51 Absolute Neuts (auto) 2.84 (1.4-6.5) 11/13/18 07:51 Sodium 139 mmol/L (132-148) 11/13/18 07:51 Potassium 3.8 mmol/L (3.6-5.0) 11/13/18 07:51 Chloride 110 mmol/L (98-107) H 11/13/18 07:51 Carbon Dioxide 24 mmol/L (21-33) 11/13/18 07:51 Anion Gap 10 (10-20) 11/13/18 07:51 BUN 20 mg/dL (7-21) 11/13/18 07:51 Creatinine 1.1 mg/dl (0.8-1.5) 11/13/18 07:51 Est GFR ( Amer) > 60 11/13/18 07:51 Est GFR (Non-Af Amer) > 60 11/13/18 07:51 POC Glucose (mg/dL) 139 mg/dL (65-110) H 11/15/18 07:16 Random Glucose 137 mg/dL (70-110) H 11/13/18 07:51 Hemoglobin A1c 13.3 % (4.2-6.5) H D 11/10/18 06:00 Calcium 8.5 mg/dL (8.4-10.5) 11/13/18 07:51 Phosphorus 3.4 mg/dL (2.5-4.5) 11/10/18 06:00 Magnesium 1.8 mg/dL (1.7-2.2) 11/10/18 06:00 Total Bilirubin 0.9 mg/dL (0.2-1.3) 11/13/18 07:51 Direct Bilirubin 0.0 mg/dL (0.0-0.4) 11/10/18 06:00 AST 20 U/L (17-59) 11/13/18 07:51 ALT 20 U/L (7-56) 11/13/18 07:51 Alkaline Phosphatase 60 U/L (38-126) 11/13/18 07:51 Total Protein 6.1 g/dL (5.8-8.3) 11/13/18 07:51 Albumin 3.0 g/dL (3.0-4.8) 11/13/18 07:51 Globulin 3.2 gm/dL 11/13/18 07:51 Albumin/Globulin Ratio 0.9 (1.1-1.8) L 11/13/18 07:51 Triglycerides 126 mg/dL (35-160) 11/10/18 06:00 Cholesterol 177 mg/dL (130-200) 11/10/18 06:00 LDL Cholesterol Direct 97 mg/dL (0-129) 11/10/18 06:00 HDL Cholesterol 46 mg/dL (29-60) 11/10/18 06:00 25-OH Vitamin D Total 25.7 NG/ML (30.0-100.0) L 11/10/18 10:20 Free T4 1.25 ng/dL (0.78-2.19) 11/10/18 06:00 TSH 3rd Generation 2.60 mIU/mL (0.46-4.68) 11/10/18 06:00 Urine Color Yellow (YELLOW) 11/12/18 11:00 Urine Appearance Clear (CLEAR) 11/12/18 11:00 Urine pH 6.0 (4.7-8.0) 11/12/18 11:00 Ur Specific [place] >= 1.030 (1.005-1.035) 11/12/18 11:00 Urine Protein Negative mg/dL (<30 mg/dL) 11/12/18 11:00 Urine Glucose (UA) 500 mg/dL (NEGATIVE) H 11/12/18 11:00 Urine Ketones Negative mg/dL (NEGATIVE) 11/12/18 11:00 Urine Blood Trace-intact (NEGATIVE) H 11/12/18 11:00 Urine Nitrate Negative (NEGATIVE) 11/12/18 11:00 Urine Bilirubin Negative (NEGATIVE) 11/12/18 11:00 Urine Urobilinogen 0.2 E.U./dL (<1 E.U./dL) 11/12/18 11:00 Ur Leukocyte Esterase Negative Xena/uL (NEGATIVE) 11/12/18 11:00 Urine RBC 1 - 3 /hpf (0-2) H 11/12/18 11:00 Urine WBC 0 - 2 /hpf (0-6) 11/12/18 11:00 Ur Epithelial Cells None /hpf (0-5) 11/12/18 11:00 Urine Bacteria Small /hpf (NONE) 11/12/18 11:00 - Hospital Course Hospital Course: Upon Admission 72yo PMHx DM, BPH, UC s/p colectomy, HTN, HLD, and nephrolithiasis presents with acute sharp LLE pain for 2 days. Patient denies any inciting factor and reports the pain began suddenly. He denied any fall/trauma/injury to the area. Patient reports pain is located in his left hip and radiates down to his left knee. He rated it 7-8/10 at its worst and no pain at rest. Patient's pain is exacerbated by movement and walking and improves with rest. He admits to associated numbness and tingling down from his left hip to below his left knee. He denied any fever, chills, headache, dizziness, chest pain, palpitations, SOB, cough, abd pain, nausea, vomiting, swelling in his legs b/l. patient does complain of polyuria and polydipsia. He denies any change sin his ostomy output; patient changes his ostomy bag every 2 days and has not noticed and blood or melena. He denied any saddle anesthesia/loss of bladder function. Hospital Course Patient admitted to med/surg for further management. Patient had hip/pelvis xray which was unremarkable. LS Spine revealed multilevel degenerative changes including retrolisthesis L3-4 with no acute findings. Ortho consulted. CT lumbar revealed slight retrolisthesis at L3-4 with disc bulge and facet and ligament hypertrophy contributing to central canal stenosis. L4-5 calcified disc herniation with facet and ligament hypertrophy contribute to severe central canal stenosis and b/l inferior foraminal encroachment. L5-S1 disc bulge with anterior epidural fat indentation. Neuro recommended PT with lumbosacral stretching, therapeutic exercises, TENS unit as outpatient. Patient on Lyrica 50bid for neuroapthy and lidoderm patch. Anesthesia recommended outpatient pain management and possible epidural. Vitamin D low- patient started on PO vit D. As patient complained of b/l calf pain, LE dopplers were ordered which were unremarkable. As patient complained of LLQ abdominal pain, CT Abd/pelvis ordered which revealed 8mm nonobstructing L renal calculus which had decreased in size with a dilated left extrarenal pelvis. Patient on fluids and flomax and to strain urine. Patient's pain was under control. When he walked with PT he was noted to have orthostatic hypotension and advised to stay hydrated and wait a couple minutes before changing positions [ie sitting to standing]. Patient's home Norvasc 5qd and Ramipril 10qd ordered for HTN and Lipitor for HLD. Patient clinically improved during hospital course and was deemed medically optimized for discharge home with close outpatient follow up. Discharge Instructions You are being discharged from [facility]. Upon discharge please take the following medications as prescribed: - Oxycodone 10mg po q6 as needed for severe pain Disp#15 - Lyrica 50mg 1 tab twice daily Disp#60 - Flomax 0.4mg 1 tab daily Disp#7 - Vitamin D 1000iu 1 tab daily Disp#30 You have also been given a script for Motrin 600mg 1 tab twice daily as needed for moderate pain Please resume all other home medications as prescribed by your primary care doctor. Please follow up with Urology Dr. Gu within 5-7 days of discharge Please follow up with your PMD Dr. Rodriguez within 7-10 days of discharge Please follow up with Pain Management Dr. Vargas within 7-10 days of discharge Please follow up with Neurology Dr. Washburn within 10-14 days of discharge Please follow up with Ortho Dr. Griffin within 10-14 days of discharge If symptoms return please visit your nearest Emergency Room. Instructions discussed in detail with patient who understands and agrees. Please note this is a discharge summary. For full hospital course please refer to EMR Discharge Exam - Head Exam Head Exam: ATRAUMATIC, NORMAL INSPECTION, NORMOCEPHALIC - Additional Findings Additional findings: - Constitutional Appears: Non-toxic, No Acute Distress - Head Exam Head Exam: ATRAUMATIC, NORMAL INSPECTION, NORMOCEPHALIC - Eye Exam Eye Exam: EOMI, Normal appearance. absent: Conjunctival injection, Scleral icterus Pupil Exam: NORMAL ACCOMODATION - ENT Exam ENT Exam: Mucous Membranes Moist - Neck Exam Neck Exam: Full ROM. absent: Lymphadenopathy - Respiratory Exam Respiratory Exam: Clear to Ausculation Bilateral. absent: Accessory Muscle Use, Rales, Rhonchi, Wheezes, Respiratory Distress - Cardiovascular Exam Cardiovascular Exam: +S1, +S2 - GI/Abdominal Exam GI & Abdominal Exam: Soft, Normal Bowel Sounds. absent: Tenderness Additional comments: ostomy bag with stool noted- ostomy is patent and pink - Extremities Exam Extremities Exam: Normal Capillary Refill, Normal Inspection. absent: Pedal Scott ma - Neurological Exam Neurological Exam: Alert, Awake, Oriented x3 - Psychiatric Exam Psychiatric exam: Normal Affect, Normal Mood - Skin Skin Exam: Dry, Intact, Normal Color, Warm Discharge Plan - Discharge Medications Prescriptions: RX: Tamsulosin [Flomax] 0.4 mg PO DAILY #7 cap RX: Pregabalin [Lyrica] 50 mg PO BID #60 cap RX: Ibuprofen [Motrin Tab] 600 mg PO BID #60 tab RX: oxyCODONE [oxyCODONE Immediate Release Tab] 10 mg PO Q6 #15 tab RX: Cholecalciferol [Vitamin D 1000 IU] 2,000 intlu PO DAILY #30 tab - Follow Up Plan Condition: FAIR Disposition: HOME/ ROUTINE Instructions: Low Back Pain in Adults Additional Instructions: You are being discharged from [facility]. Upon discharge please take the following medications as prescribed: - Oxycodone 10mg po q6 as needed for severe pain Disp#15 - Lyrica 50mg 1 tab twice daily Disp#60 - Flomax 0.4mg 1 tab daily Disp#7 - Vitamin D 1000iu 1 tab daily Disp#30 You have also been given a script for Motrin 600mg 1 tab twice daily as needed for moderate pain Please resume all other home medications as prescribed by your primary care doctor. Please follow up with Urology Dr. Gu within 5-7 days of discharge Please follow up with your PMD Dr. Rodriguez within 7-10 days of discharge Please follow up with Pain Management Dr. Vargas within 7-10 days of discharge Please follow up with Neurology Dr. Washburn within 10-14 days of discharge Please follow up with Ortho Dr. Griffin within 10-14 days of discharge If symptoms return please visit your nearest Emergency Room. Referrals: Brenna Rodriguez MD [Primary Care Provider] - Jann Vargas MD [Staff Provider] - Leonidas Washburn MD [Staff Provider] - Romain Gu MD [Staff Provider] - Jl Griffin DO [Staff Provider] - <Herrera Healy - Last Filed: 11/15/18 15:52> Provider - Provider Date of Admission: 11/09/18 18:25 Attending physician: Herrera Healy MD Primary care physician: Brenna Rodriguez MD Consults: 11/09/18 20:13 Consult [Physician Consult] Routine Comment: Consulting Provider: Jl Griffin Consulting Physician: Jl Griffin Reason for Consult: hip pain 11/09/18 23:35 Diabetic Education Referral Routine Comment: Physician Instructions: Reason For Exam: hx diabetes 11/09/18 23:52 Social Work Referral Routine Comment: difficulty ambulating due to pain Physician Instructions: discharge planning Reason For Exam: was living independently alone 11/10/18 09:19 Neurology Consult Routine Comment: Consulting Provider: Leonidas Washburn Consulting Physician: Leonidas Washburn Reason for Consult: lt sided sciatica 11/12/18 10:23 Physician Consult Routine Comment: Consulting Provider: Romain Gu Consulting Physician: Romain Gu Reason for Consult: 8mm nonobstructing L renal calculus 11/12/18 10:24 TCU [Evaluation for TRCU] Routine Comment: Physician Instructions: Reason For Exam: gait dysfunction and pain; requires PT Hospital Course - Lab Results Lab Results: Micro Results 11/12/18 11:00 Urine Random Urine Culture - Final No Growth (<1,000 CFU/ML) Most Recent Lab Values WBC 5.5 10^3/uL (4.5-11.0) 11/15/18 11:20 RBC 5.00 10^6/uL (3.5-6.1) 11/15/18 11:20 Hgb 15.9 g/dL (14.0-18.0) D 11/15/18 11:20 Hct 45.2 % (42.0-52.0) 11/15/18 11:20 MCV 90.4 fl (80.0-105.0) 11/15/18 11:20 MCH 31.8 pg (25.0-35.0) 11/15/18 11:20 MCHC 35.2 g/dl (31.0-37.0) 11/15/18 11:20 RDW 12.5 % (11.5-14.5) 11/15/18 11:20 Plt Count 159 10^3/uL (120.0-450.0) 11/15/18 11:20 MPV 10.1 fl (7.0-11.0) 11/15/18 11:20 Neut % (Auto) 60.9 % (50.0-68.0) 11/15/18 11:20 Lymph % (Auto) 30.6 % (22.0-35.0) 11/15/18 11:20 [place] % (Auto) 5.9 % (1.0-6.0) 11/15/18 11:20 Eos % (Auto) 2.4 % (1.5-5.0) 11/15/18 11:20 Baso % (Auto) 0.2 % (0.0-3.0) 11/15/18 11:20 Lymph # (Auto) 1.7 (1.2-3.4) 11/15/18 11:20 [place] # (Auto) 0.3 (0.1-0.6) 11/15/18 11:20 Eos # (Auto) 0.1 (0.0-0.7) 11/15/18 11:20 Baso # (Auto) 0.01 K/mm3 (0.0-2.0) 11/15/18 11:20 Absolute Neuts (auto) 3.33 (1.4-6.5) 11/15/18 11:20 Sodium 137 mmol/L (132-148) 11/15/18 11:20 Potassium 4.2 mmol/L (3.6-5.0) 11/15/18 11:20 Chloride 102 mmol/L (98-107) 11/15/18 11:20 Carbon Dioxide 28 mmol/L (21-33) 11/15/18 11:20 Anion Gap 11 (10-20) 11/15/18 11:20 BUN 18 mg/dL (7-21) 11/15/18 11:20 Creatinine 1.1 mg/dl (0.8-1.5) 11/15/18 11:20 Est GFR ( Amer) > 60 11/15/18 11:20 Est GFR (Non-Af Amer) > 60 11/15/18 11:20 POC Glucose (mg/dL) 171 mg/dL (65-110) H 11/15/18 11:18 Random Glucose 164 mg/dL (70-110) H 11/15/18 11:20 Hemoglobin A1c 13.3 % (4.2-6.5) H D 11/10/18 06:00 Calcium 9.7 mg/dL (8.4-10.5) 11/15/18 11:20 Phosphorus 3.4 mg/dL (2.5-4.5) 11/15/18 11:20 Magnesium 1.7 mg/dL (1.7-2.2) 11/15/18 11:20 Total Bilirubin 1.2 mg/dL (0.2-1.3) 11/15/18 11:20 Direct Bilirubin 0.0 mg/dL (0.0-0.4) 11/10/18 06:00 AST 26 U/L (17-59) 11/15/18 11:20 ALT 9 U/L (7-56) 11/15/18 11:20 Alkaline Phosphatase 77 U/L (38-126) 11/15/18 11:20 Total Protein 7.9 g/dL (5.8-8.3) 11/15/18 11:20 Albumin 4.1 g/dL (3.0-4.8) 11/15/18 11:20 Globulin 3.8 gm/dL 11/15/18 11:20 Albumin/Globulin Ratio 1.1 (1.1-1.8) 11/15/18 11:20 Triglycerides 126 mg/dL (35-160) 11/10/18 06:00 Cholesterol 177 mg/dL (130-200) 11/10/18 06:00 LDL Cholesterol Direct 97 mg/dL (0-129) 11/10/18 06:00 HDL Cholesterol 46 mg/dL (29-60) 11/10/18 06:00 25-OH Vitamin D Total 25.7 NG/ML (30.0-100.0) L 11/10/18 10:20 Free T4 1.25 ng/dL (0.78-2.19) 11/10/18 06:00 TSH 3rd Generation 2.60 mIU/mL (0.46-4.68) 11/10/18 06:00 Urine Color Yellow (YELLOW) 11/12/18 11:00 Urine Appearance Clear (CLEAR) 11/12/18 11:00 Urine pH 6.0 (4.7-8.0) 11/12/18 11:00 Ur Specific [place] >= 1.030 (1.005-1.035) 11/12/18 11:00 Urine Protein Negative mg/dL (<30 mg/dL) 11/12/18 11:00 Urine Glucose (UA) 500 mg/dL (NEGATIVE) H 11/12/18 11:00 Urine Ketones Negative mg/dL (NEGATIVE) 11/12/18 11:00 Urine Blood Trace-intact (NEGATIVE) H 11/12/18 11:00 Urine Nitrate Negative (NEGATIVE) 11/12/18 11:00 Urine Bilirubin Negative (NEGATIVE) 11/12/18 11:00 Urine Urobilinogen 0.2 E.U./dL (<1 E.U./dL) 11/12/18 11:00 Ur Leukocyte Esterase Negative Xena/uL (NEGATIVE) 11/12/18 11:00 Urine RBC 1 - 3 /hpf (0-2) H 11/12/18 11:00 Urine WBC 0 - 2 /hpf (0-6) 11/12/18 11:00 Ur Epithelial Cells None /hpf (0-5) 11/12/18 11:00 Urine Bacteria Small /hpf (NONE) 11/12/18 11:00 - Hospital Course Hospital Course: Pt seen and examined by me. I have reviewed the note of the medical office representative and I agree with it. I have discussed the assessment and plan with the resident. I have reviewed the medications and the last labs. L hip pain is improved. Back pain with L3-L4 and L5-S1 disc herniation. The pain is better. DM-2 is controlled. I have given him a Rx for Oxycodone. Pt is on Lyrica for pain. He w ill continue with Flomax. I advised him to take his medications for his Uric acid stone. HTN is controlled on Norvasc and Ramipril. Will D/C home
[2018-11-15] MEDS: Lidocaine 5% Patch TD SCH (10:20)
[2018-11-15] MEDS: Cholecalciferol 1,000 INTLU TAB PO SCH (10:20)
[2018-11-15 11:50] LABS: ALB/GLOB RATIO 1.1 (1.1-1.8); ALBUMIN 4.1 g/dL (3.0-4.8); ALT/SGPT 9 U/L (7-56); AST/SGOT 26 U/L (17-59); BLOOD UREA NITROGEN 18 mg/dL (7-21); CALCIUM 9.7 mg/dL (8.4-10.5); GFR NON-AFRICAN AMERICAN > 60
[2018-11-15 11:55] LABS: BASO # 0.01 K/mm3 (0.0-2.0); BASO % 0.2 % (0.0-3.0); EOS # 0.1 (0.0-0.7); EOS % 2.4 % (1.5-5.0); HEMOGLOBIN 15.9 g/dL (14.0-18.0); LYMPH # 1.7 (1.2-3.4); LYMPH % 30.6 % (22.0-35.0); MEAN CELL VOLUME 90.4 fl (80.0-105.0); MEAN CORPUSCULAR HEMOGLOBIN 31.8 pg (25.0-35.0); MEAN CORPUSCULAR HGB CONC 35.2 g/dl (31.0-37.0); MEAN PLATELET VOLUME 10.1 fl (7.0-11.0); MONO # 0.3 (0.1-0.6); MONO % 5.9 % (1.0-6.0); RED CELL DISTRIBUTION WIDTH 12.5 % (11.5-14.5); WHITE BLOOD COUNT 5.5 10^3/uL (4.5-11.0)
== END 2018-11-15 12:54 | disposition home or self-care (01) ==
LOC: ED 12:00 → INTOOBSV 18:25 → ERH 18:25 → 3RNO 21:40
PROVIDERS: ADMIT Internal Medicine Nephrology; ATTEND Internal Medicine Nephrology
DX: M51.26 Other intervertebral disc displacement, lumbar region (principal); M51.17 Intervertebral disc disorders with radiculopathy, lumbosacral region; E11.42 Type 2 diabetes mellitus with diabetic polyneuropathy; E11.65 Type 2 diabetes mellitus with hyperglycemia; I10 Essential (primary) hypertension; I95.1 Orthostatic hypotension; M48.061 Spinal stenosis, lumbar region without neurogenic claudication; M47.26 Other spondylosis with radiculopathy, lumbar region; N40.0 Benign prostatic hyperplasia without lower urinary tract symptoms; N20.0 Calculus of kidney; E78.5 Hyperlipidemia, unspecified; E78.00 Pure hypercholesterolemia, unspecified; Z80.1 Family history of malignant neoplasm of trachea, bronchus and lung; Z79.4 Long term (current) use of insulin; Z91.19 Patient's noncompliance with other medical treatment and regimen; Z93.2 Ileostomy status; Z88.0 Allergy status to penicillin
CPT/HCPCS: 36415; 72110; 72131; 73502; 74176; 80053; 80061; 81001; 82248; 82306; 82948; 83036; 83735; 84100; 84439; 84443; 85025; 87086; 93970; 96374; 96376; 97162; 97530; 99285; G0378; G8978; G8979; J1200; J2270; J7030

== ENCOUNTER 2019-02-08 10:04 | Emergency (ER) | payer BC, MEDICARE ==
[2019-02-08 10:05] VITALS: BMI 27.3
[2019-02-08 10:19] VITALS: RESP 18
[2019-02-08] MEDS ORDERED: Sodium Chloride 0.9% 1,000 ML IV STA (11:26)
--- NOTE | 2019-02-08 11:32 | ED PDOC ---
Arrival/HPI - History of Present Illness Narrative History of Present Illness (Text): 02/08/19 11:28 Patient is a 73 year old male with past medical history ulcerative colitis s/p colectomy, recurrent nephrolithiasis, diabetes, hypertension, hyperlipidemia, BPH presenting with chief complaint of diarrhea, nausea, and vomiting over the past two days. Admits to some right sided abdominal and chest discomfort. He denies ingestion of any new foods although he had some shellfish. Denies recent use of antibiotics, fevers, chills, shortness of breath. Time/Duration: < week Symptom Onset: Sudden Symptom Course: Unchanged Severity Level: Moderate <April Paez - Last Filed: 02/08/19 16:31> - General Historian: Patient <Linnea Dunnil - Last Filed: 02/08/19 19:26> - General Chief Complaint: GI Problem Time Seen by Provider: 02/08/19 11:03 Past Medical History - Provider Review Nursing Documentation Reviewed: Yes Primary Care Provider: Brenna Rodriguez - Past History Past History: No Previous - Infectious Disease Hx of Infectious Diseases: None - Tetanus Immunization Tetanus Immunization: Unknown - Cardiac Hx Cardiac Disorders: Yes Hx Hypertension: Yes - Pulmonary Hx Respiratory Disorders: No Hx Asthma: No Hx Bronchitis: No Hx Chronic Obstructive Pulmonary Disease (COPD): No Hx Emphysema: No Hx Pneumonia: No Hx Respiratory Aspiration: No Hx Respiratory Tract Infection: No Hx Sleep Apnea: No Hx Tuberculosis: No - Neurological Hx Neurological Disorder: Yes Hx Alzheimer's Disease: No HX Cerebrovascular Accident: No Hx Dementia: No Hx Dizziness: Yes Hx Meningitis: No Hx Migraine: No Hx Parkinson's Disease: No Hx Seizures: No Hx Transient Ischemic Attacks (TIA): No - HEENT Hx Blind: No Hx Cataracts: No Hx Difficulty Chewing: No Hx Epistaxis: No Hx Macular Degeneration: No - Renal Hx Renal Disorder: Yes Hx Kidney Stones: Yes - Endocrine/Metabolic Hx Diabetes Mellitus Type 2: Yes - Hematological/Oncological Hx Blood Disorders: No Hx AIDS: No Hx Anemia: No Hx Cancer: No Hx Chemotherapy: No Hx Cirrhosis: No Hx Hepatitis A: No Hx Hepatitis C: No Hx Metastasis: No Hx Shingles: No Hx Unexplained Bleeding: No - Integumentary Hx Dermatological Disorder: No Hx Eczema: No Hx Melanoma: No Hx Psoriasis: No - Musculoskeletal/Rheumatological Hx Musculoskeletal Disorders: No Hx Falls: No - Gastrointestinal Hx Gastrointestinal Disorders: Yes (INCONTINENT,ILEOSTOMY,CONSTIPATION,ULCERATIVE COLITIS,APPENDECTOMY,) Hx Gall Bladder Disease: Yes (CHOLEYCSTECTOMY,) Hx Liver Failure: Yes Other/Comment: ULCERATIVE COLITIS,COLECTOMY,APPENDECTOMY - Genitourinary/Gynecological Hx Genitourinary Disorders: Yes (KIDNEY STONES) Hx Hematuria: Yes Hx Prostate Problems: Yes (BPH) Hx Urinary Tract Infection: Yes Other/Comment: CHRONIC DYSURIA X 3 YRS. - Psychiatric Hx Emotional Abuse: No Hx Physical Abuse: No Hx Substance Use: No - Surgical History Hx Appendectomy: Yes Hx Cholecystectomy: Yes - Anesthesia Hx Anesthesia Reactions: No Hx Malignant Hyperthermia: No - Suicidal Assessment Feels Threatened In Home Enviroment: No <April Paez - Last Filed: 02/08/19 16:31> Family/Social History - Physician Review Nursing Documentation Reviewed: Yes Family/Social History: No Known Family HX Smoking Status: Never Smoked Hx Alcohol Use: No Hx Substance Use: No Hx Substance Use Treatment: No <April Paez - Last Filed: 02/08/19 16:31> Allergies/Home Meds <April Paez - Last Filed: 02/08/19 16:31> <Micheal Dunn - Last Filed: 02/08/19 19:26> Allergies/Adverse Reactions: Allergies Penicillins Allergy (Severe, Verified 07/15/18 14:43) hallucination PERCODAN Allergy (Severe, Uncoded 11/10/18 00:54) HALLUCINATIONS aspirin Adverse Reaction (Severe, Uncoded 11/10/18 00:54) sweating Home Medications: Home Meds Medication Instructions Recorded Confirmed Insulin Detemir [Levemir] 0 unit SC BID 11/09/14 11/10/18 Atorvastatin [Lipitor] 10 mg PO DIN 06/08/18 02/08/19 [place] K 1 tab PO TID 06/08/18 02/08/19 Ramipril [Altace] 10 mg PO DAILY 06/08/18 02/08/19 amLODIPine [Norvasc] 5 mg PO DAILY 06/08/18 02/08/19 [place] 50 + Kr[place] 1 tab PO DAILY 02/08/19 02/08/19 traZODone [trazODONE HYDROCHLORIDE] 50 mg PO DAILY 02/08/19 02/08/19 Review of Systems - Physician Review All systems were reviewed & negative as marked: Yes - Review of Systems Respiratory: Normal Gastrointestinal: Abdominal Pain, Diarrhea, Nausea, Vomiting Genitourinary Male: Dysuria Neurological: Normal <April Paez - Last Filed: 02/08/19 16:31> Physical Exam Vital Signs Reviewed: Yes Vital Signs Temp Pulse Resp BP Pulse Ox 02/08/19 10:15 97.4 F L 80 18 128/81 98 Temperature: Afebrile Blood Pressure: Normal Pulse: Regular Respiratory Rate: Normal Appearance: Positive for: Well-Appearing, Comfortable Pain Distress: None Mental Status: Positive for: Alert and Oriented X 3 - Systems Exam Head: Present: Atraumatic, Normocephalic Pupils: Present: PERRL Extroacular Muscles: Present: EOMI Conjunctiva: Present: Normal Mouth: Present: Moist Mucous Membranes Respiratory/Chest: Present: Clear to Auscultation, Good Air Exchange. No: Respiratory Distress, Accessory Muscle Use Cardiovascular: Present: Regular Rate and Rhythm, Normal S1, S2. No: Murmurs, Tachycardic Abdomen: Present: Normal Bowel Sounds, Other (ileostomy with liquid stool). No: Tenderness, Distention, Peritoneal Signs Lower Extremity: Present: Normal Inspection. No: Edema Neurological: Present: GCS=15, CN II-XII Intact, Speech Normal Skin: Present: Warm, Dry, Normal Color Psychiatric: Present: Alert, Oriented x 3 <April Paez L - Last Filed: 02/08/19 16:31> Vital Signs Temp Pulse Resp BP Pulse Ox 02/08/19 15:47 98.2 F 66 18 128/70 95 02/08/19 15:34 98.2 F 69 18 128/70 95 02/08/19 10:15 97.4 F L 80 18 128/81 98 <Micheal Dunn - Last Filed: 02/08/19 19:26> Medical Decision Making ED Course and Treatment: 02/08/19 11:40 Impression: 73 year old male with nausea, vomiting, abdominal/chest discomfort Plan: - CBC, CMP, lipase - coags - EKG, cardiac ISO - Chest X-ray - Urinalysis - Zofran, IVF - Reassess and disposition Prior Visits: Notes and results from previous visits were reviewed. Progress Notes: 02/08/19 11:43 FINDINGS: LOWER THORAX: Unremarkable. LIVER: Unremarkable. No gross lesion or ductal dilatation. GALLBLADDER AND BILE DUCTS: Gallbladder removed PANCREAS: Unremarkable. No gross lesion or ductal dilatation. SPLEEN: Unremarkable. ADRENALS: Unremarkable. No mass. KIDNEYS AND URETERS: Unremarkable. No hydronephrosis. No solid mass. VASCULATURE: Unremarkable. No aortic aneurysm. Aortic calcification BOWEL: There is an ileostomy to the right of midline. The small bowel is filled with fluid. There are no obvious inflammatory changes or mural thickening. There is no obstruction. The colon has been resected. APPENDIX: Normal appendix. PERITONEUM: Unremarkable. No free fluid. No free air. LYMPH NODES: Unremarkable. No enlarged lymph nodes. BLADDER: Unremarkable. REPRODUCTIVE: Unremarkable. BONES: No acute fracture. OTHER FINDINGS: None. IMPRESSION: There is an ileostomy to the right of midline. The small bowel is filled with fluid. There are no obvious inflammatory changes or mural thickening. There is no obstruction. The colon has been resected. Labs and imaging reviewed. Patient reports improvement in symptoms. Patient hem odynamically stable and optimized for discharge to follow up with primary medical doctor. Patient in agreement with plan of management. - Medication Orders Current Medication Orders: Sodium Chloride (Sodium Chloride 0.9%) 1,000 mls @ 999 mls/hr IV .Q1H1M STA Stop: 02/08/19 12:26 Discontinued Medications Ondansetron HCl (Zofran Inj) 4 mg IVP ONCE ONE Stop: 02/08/19 11:26 <April Paez - Last Filed: 02/08/19 16:31> ED Course and Treatment: In agreement with resident note, which includes further HPI details. Patient was seen and evaluated with resident, came up with plan and treatment together. 73 year old male presents complaining of diarrhea, nausea, and vomiting for the past 2 days associated with abdominal and chest discomfort. Plan: -- CT Abd & Pelvis IV Contrast -- EKG -- Labs -- Chest X-ray -- Neurotin, IV FLuids, Zofran Inj -- Urinalysis w/ micro -- Duplex LE US -- Good and disposition EKG shows NSR at 75 BPM. Interpreted by me. Chest X-ray Dictator : Jl Peunte MD Report Date : 02/08/2019 12:15:37 IMPRESSION: No active disease. 02/08/19 19:25 pt seen with resdient. diarrhea vomiting. in er in [place]. abd soft minimal ttp. labs neg. ct neg for acute patholgy. pt prefers to go home. states will return with worsneing. - Lab Interpretations Lab Results: PT 11.8 SECONDS (9.4-12.5) 02/08/19 11:45 INR 1.04 02/08/19 11:45 APTT 31.8 Seconds (26.9-38.3) 02/08/19 11:45 Troponin I < 0.01 ng/mL 02/08/19 11:45 Total Bilirubin 1.8 mg/dL (0.2-1.3) H 02/08/19 11:45 AST 26 U/L (17-59) 02/08/19 11:45 ALT 24 U/L (7-56) 02/08/19 11:45 Alkaline Phosphatase 90 U/L (38-126) 02/08/19 11:45 Total Protein 8.6 g/dL (5.8-8.3) H 02/08/19 11:45 Albumin 4.5 g/dL (3.0-4.8) 02/08/19 11:45 Globulin 4.1 gm/dL 02/08/19 11:45 Albumin/Globulin Ratio 1.1 (1.1-1.8) 02/08/19 11:45 Lipase 44 U/L (23-300) 02/08/19 11:45 Urine Color Yellow (YELLOW) 02/08/19 13:57 Urine Appearance Sl cloudy (CLEAR) 02/08/19 13:57 Urine pH 5.5 (4.7-8.0) 02/08/19 13:57 Ur Specific B[place] 1.020 (1.005-1.035) 02/08/19 13:57 Urine Protein Trace mg/dL (<30 mg/dL) H 02/08/19 13:57 Urine Glucose (UA) 500 mg/dL (NEGATIVE) H 02/08/19 13:57 Urine Ketones Negative mg/dL (NEGATIVE) 02/08/19 13:57 Urine Blood Trace-lysed (NEGATIVE) H 02/08/19 13:57 Urine Nitrate Negative (NEGATIVE) 02/08/19 13:57 Urine Bilirubin Negative (NEGATIVE) 02/08/19 13:57 Urine Urobilinogen 0.2 E.U./dL (<1 E.U./dL) 02/08/19 13:57 Ur Leukocyte Esterase Negative Xena/uL (NEGATIVE) 02/08/19 13:57 Urine RBC None /hpf (0-2) 02/08/19 13:57 Urine WBC None /hpf (0-6) 02/08/19 13:57 Hyaline Casts 0 - 2 /hpf (NONE) 02/08/19 13:57 I have reviewed the lab results: Yes - RAD Interpretation Radiology Orders: 02/08/19 11:41 CXR [CHEST PORTABLE] [RAD] Stat 02/08/19 12:25 ABD & PELVIS IV CONTRAST ONLY [CT] Stat 02/08/19 14:00 DUPLEX LOWER EXTRM VEIN BILAT [US] Stat Welding Inspector: Radiologist - EKG Interpretation Interpreted by ED Physician: Yes Type: 12 lead EKG - Medication Orders Current Medication Orders: Discontinued Medications Gabapentin (Neurontin) 300 mg PO STAT STA; Protocol Stop: 02/08/19 13:33 Last Admin: 02/08/19 13:47 Dose: 300 mg Sodium Chloride (Sodium Chloride 0.9%) 1,000 mls @ 999 mls/hr IV .Q1H1M STA Stop: 02/08/19 12:26 Last Admin: 02/08/19 12:05 Dose: 999 mls/hr eMAR Start Stop Document 02/08/19 12:05 [email or web address] (Rec: 02/08/19 12:05 [facility] [id number]) Intravenous Solution Start Date 02/08/19 Start Time 12:00 End Date 02/08/19 End time 13:00 Total Infusion Time 60 Ondansetron HCl (Zofran Inj) 4 mg IVP ONCE ONE Stop: 02/08/19 11:26 Last Admin: 02/08/19 12:04 Dose: 4 mg IVP Administration Document 02/08/19 12:04 UJP (Rec: 02/08/19 12:04 [facility] [id number]) Charges for Administration # of IVP Administrations 1 Ondansetron HCl (Zofran Inj) 4 mg IVP ONCE ONE Stop: 02/08/19 13:32 <Micheal Dunn - Last Filed: 02/08/19 19:26> - Scribe Statement The provider has reviewed the documentation as recorded by the Juanjose Holman Provider Juanjose Attestation: All medical record entries made by the Juanjose were at my direction and personally dictated by me. I have reviewed the chart and agree that the record accurately reflects my personal performance of the history, physical exam, medical decision making, and the department course for this patient. I have also personally directed, reviewed, and agree with the discharge instructions and disposition. <Micheal Dunn - Last Filed: 02/08/19 19:26> Disposition/Present on Arrival - Present on Arrival Any Indicators Present on Arrival: Yes History of DVT/PE: No History of Uncontrolled Diabetes: Yes Urinary Catheter: No History of Decub. Ulcer: No History Surgical Site Infection Following: None - Disposition Have Diagnosis and Disposition been Completed?: Yes Disposition Time: 15:34 <April Paez - Last Filed: 02/08/19 16:31> <Micheal Dunn - Last Filed: 02/08/19 19:26> - Disposition Diagnosis: Abdominal pain Disposition: HOME/ ROUTINE Condition: STABLE Discharge Instructions (ExitCare): Acute Abdomen (Belly Pain), Adult (DC) Additional Instructions: Follow up with your primary medical doctor within one week Resume your home medications as prescribed Return to ED if symptoms return or worsen Referrals: Brenna Rodriguez MD [Primary Care Provider] - Follow up with primary Forms: [employer] (Serbian)
[2019-02-08 12:10] LABS: BASO # 0.02 K/mm3 (0.0-2.0); BASO % 0.3 % (0.0-3.0); EOS % 0.5 % (1.5-5.0); HEMOGLOBIN 17.1 g/dL (14.0-18.0); LYMPH # 0.9 (1.2-3.4); LYMPH % 14.2 % (22.0-35.0); MEAN CELL VOLUME 90.8 fl (80.0-105.0); MEAN CORPUSCULAR HEMOGLOBIN 31.4 pg (25.0-35.0); MEAN CORPUSCULAR HGB CONC 34.6 g/dl (31.0-37.0); MEAN PLATELET VOLUME 10.2 fl (7.0-11.0); MONO # 0.5 (0.1-0.6); MONO % 8.3 % (1.0-6.0); RBC 5.44 10^6/uL (3.5-6.1); RED CELL DISTRIBUTION WIDTH 13.2 % (11.5-14.5); WHITE BLOOD COUNT 6.1 10^3/uL (4.5-11.0)
--- NOTE | 2019-02-08 12:19 | RAD ---
Date of service: 02/08/2019 HISTORY: abd pain COMPARISON: No prior. TECHNIQUE: 1 view obtained. FINDINGS: LUNGS: No active pulmonary disease. PLEURA: No significant pleural effusion identified, no pneumothorax apparent. CARDIOVASCULAR: No aortic atherosclerotic calcification present. Aortic tortuosity Normal cardiac size. No pulmonary vascular congestion. OSSEOUS STRUCTURES: No significant abnormalities. VISUALIZED UPPER ABDOMEN: Normal. OTHER FINDINGS: None. IMPRESSION: No active disease.
[2019-02-08 12:24] LABS: ALB/GLOB RATIO 1.1 (1.1-1.8); ALBUMIN 4.5 g/dL (3.0-4.8); ALT/SGPT 24 U/L (7-56); AST/SGOT 26 U/L (17-59); BLOOD UREA NITROGEN 21 mg/dL (7-21); GFR NON-AFRICAN AMERICAN 54; LIPASE 44 U/L (23-300)
[2019-02-08 12:25] LABS: INR 1.04; PARTIAL THROMBOPLASTIN TIME 31.8 Seconds (26.9-38.3); PROTHROMBIN TIME 11.8 SECONDS (9.4-12.5)
[2019-02-08 12:36] LABS: TROPONIN I < 0.01 ng/mL
[2019-02-08] MEDS ORDERED: Iodixanol 320 MG/ML 100 ML BOTTLE IV ONE (12:54)
--- NOTE | 2019-02-08 13:59 | CT ---
Date of service: 02/08/2019 PROCEDURE: CT Abdomen and Pelvis with contrast HISTORY: abd pain/diarrhea/h/o of ileostomy COMPARISON: None. TECHNIQUE: Contrast dose: 100 cc of Omni 350 Radiation dose: Total exam DLP = 647.29 mGy-cm. This CT exam was performed using one or more of the following dose reduction techniques: Automated exposure control, adjustment of the mA and/or kV according to patient size, and/or use of iterative reconstruction technique. FINDINGS: LOWER THORAX: Unremarkable. LIVER: Unremarkable. No gross lesion or ductal dilatation. GALLBLADDER AND BILE DUCTS: Gallbladder removed PANCREAS: Unremarkable. No gross lesion or ductal dilatation. SPLEEN: Unremarkable. ADRENALS: Unremarkable. No mass. KIDNEYS AND URETERS: Unremarkable. No hydronephrosis. No solid mass. VASCULATURE: Unremarkable. No aortic aneurysm. Aortic calcification BOWEL: There is an ileostomy to the right of midline. The small bowel is filled with fluid. There are no obvious inflammatory changes or mural thickening. There is no obstruction. The colon has been resected. APPENDIX: Normal appendix. PERITONEUM: Unremarkable. No free fluid. No free air. LYMPH NODES: Unremarkable. No enlarged lymph nodes. BLADDER: Unremarkable. REPRODUCTIVE: Unremarkable. BONES: No acute fracture. OTHER FINDINGS: None. IMPRESSION: There is an ileostomy to the right of midline. The small bowel is filled with fluid. There are no obvious inflammatory changes or mural thickening. There is no obstruction. The colon has been resected.
[2019-02-08 14:12] LABS: PH,URINE 5.5 (4.7-8.0); URINE BILIRUBIN NEGATIVE (NEGATIVE); URINE BLOOD TRACE-LYSED (NEGATIVE); URINE GLUCOSE (UA) 500 mg/dL (NEGATIVE); URINE LEUKOCYTE ESTERASE NEGATIVE Leu/uL (NEGATIVE); URINE PROTEIN TRACE mg/dL (<30 mg/dL); URINE UROBILINOGEN 0.2 E.U./dL (<1 E.U./dL)
[2019-02-08 14:14] LABS: URINE APPEARANCE SL CLOUDY (CLEAR); URINE COLOR YELLOW (YELLOW)
[2019-02-08 14:28] LABS: URINE HYALINE CAST 0 - 2 /hpf
[2019-02-08 15:34] VITALS: BP 128/70; TEMP 98.2; O2SAT 95
[2019-02-08 15:53] VITALS: PULSE 66
--- NOTE | 2019-02-08 19:00 | CARD ---
APPROVED REPORT Date of service: 02/08/2019 EKG Measurement Heart [id number] <Conclusion> Normal sinus rhythm Normal ECG
== END 2019-02-08 16:05 | disposition home or self-care (01) ==
LOC: ED 10:04
DX: R10.9 Unspecified abdominal pain (principal); I10 Essential (primary) hypertension; E78.5 Hyperlipidemia, unspecified; E11.9 Type 2 diabetes mellitus without complications; N40.0 Benign prostatic hyperplasia without lower urinary tract symptoms
CPT/HCPCS: 71045; 74177; 80053; 81001; 82550; 83615; 83690; 84484; 85025; 85610; 85730; 93005; 93970; 96361; 96374; 99283; J2405; J7030; Q9967